=== PATIENT | male | born 1955 | race Caucasian/White ===

== ENCOUNTER 2024-10-23 12:15 | Day surgery (SDC) | payer MEDICARE, BC, SELFPAY ==
[2024-10-23] VITALS (13 sets, daily range): BP systolic 124–169; BP diastolic 63–87; PULSE 58–108; RESP 16–18; TEMP 36.3–36.9; O2SAT 89–100; BMI 25.8
--- NOTE | 2024-10-23 12:47 | CT_ITS ---
PROCEDURE: ABDOMEN/PELVIS W IV CONT ONLY 10/23/2024 REASON FOR EXAM: RLQ PAIN TECHNIQUE: ABDOMEN/PELVIS W IV CONT ONLY Coronal and Sagittal reconstruction series were provided. Intravenous contrast administered One or more dose reduction techniques were used (e.g., Automated exposure control, adjustment of the mA and/or kV according to patient size, use of iterative reconstruction technique. RADIATION DOSE SUMMARY: Dose reduction techniques performed COMPARISON: None FINDINGS: Lung bases are clear. Liver, spleen, adrenals, pancreas, kidneys are unremarkable. Simple cystic change of the bilateral kidneys. Aorta is nonaneurysmal. Severe diverticulosis centered at the sigmoid colon. No bowel obstruction. Blind-ending tubular structure seen in the right upper quadrant, unusual location for an appendix however this structure appears distended and dilated measuring up to 11 mm. No abscess. No appendicolith is seen. CT/Abdomen/Pelvis W IV Cont ONLY IMPRESSION: Possible CT evidence of acute uncomplicated appendicitis. Appendix abnormally located in the right upper quadrant. Clinical correlation is advised. Attempting to contact referring provider at the time of this dictation. Reading Location: [facility]
--- NOTE | 2024-10-23 12:50 | EX.ED.DYSGE1 ---
HPI History of Present Illness Chief Complaint: Abd Pain Narrative Narrative: 69-year-old male with PMH of HTN, HLD, DM2, colitis, GI bleed presents with right lower quadrant abdominal pain that started yesterday. He states he laid in bed all day yesterday and felt nauseated with decreased appetite. The area was tender to touch but with rolling over in bed. The pain is less severe today but still present. He is having normal urination. States his bowel movements have been smaller but formed without melena or hematochezia. He has a history of hernia repair as a child. He has never had a colonoscopy. [facility] Medical History (Updated 10/23/24 @ 15:38 by EDIN Roberts) Hyperlipidemia Diabetes HTN (hypertension) Home Medications ?Medication ?Instructions ?Recorded ?Last Taken ?Type diltiazem HCl 240 mg 240 mg PO DAILY 10/23/24 10/21/24 History capsule,extended release 24 hr (Cartia XT) glipizide 10 mg tablet, extended 10 mg PO DAILY 10/23/24 10/21/24 History release 24 hr insulin glargine 100 unit/mL (3 26 unit subcut QHS 10/23/24 10/21/24 History mL) subcutaneous pen (Lantus Solostar U-100 Insulin) lisinopril 40 mg tablet 40 mg PO DAILY 10/23/24 10/21/24 History rosuvastatin 10 mg tablet 10 mg PO QHS 10/23/24 10/21/24 History sertraline 50 mg tablet 50 mg PO DAILY 10/23/24 10/21/24 History Allergy/AdvReac Type Severity Reaction Status Date / Time No Known Allergies Allergy Verified 10/23/24 12:18 Social History (Updated 12/30/17 @ 11:48 by Mikey JESUS, PA) Smoking Status: Former smoker ROS ROS ED ROS Narrative Constitutional: Negative for fever, chills. CVS: Negative for chest pain. Respiratory: Negative for shortness of breath, cough. GI: Positive for abdominal pain. Negative for vomiting, melena, hematochezia. : Negative for dysuria, hematuria or frequency. EXAM Physical Exam Narrative Exam Narrative: CONST: Patient sitting in no acute distress. EYES: Normal inspection. NECK: Normal inspection. RESP: No respiratory distress, CTAB. CVS: Regular rate and rhythm, no murmur, no gallop. ABD: Soft with right upper and lower quadrant tenderness, no guarding or rebound, nondistended, no hepatosplenomegaly. Back: Normal inspection, no CVA tenderness. SKIN: Color normal, no rash, warm, dry, intact. EXTREMITIES: Normal appearance, no pedal edema. NEURO: Alert and answering questions appropriately. PSYCH: Normal affect. Const Vital Signs: 10/23/24 12:16 10/23/24 14:16 10/23/24 15:23 Temperature 97.9 F 98.5 F Temperature Source Oral Oral Pulse Rate 108 H 58 L 65 Respiratory Rate 16 18 18 Blood Pressure 158/84 H 143/75 H 138/77 H Blood Pressure Mean 108 97 97 Blood Pressure Source Monitor Blood Pressure Position Semi-Fowlers Blood Pressure Location Right Arm Pulse Ox 97 100 97 Oxygen Delivery Method Room Air Room Air Room Air MDM MDM MDM Narrative Medical decision making narrative: History gathered from: Patient and family Differential includes but not limited to appendicitis, kidney stone, diverticulitis Consults: General surgery, discussion with radiologist 69-year-old male has had 2 days of right sided abdominal pain. It is lessened in severity but is still present with decreased appetite and nausea. He appears well and nontoxic. He is tachycardic at 108 with otherwise normal vital signs. Abdomen is soft with RLQ tenderness without peritoneal signs. Labs show WBC of 12.3. Potassium is 5.4, BUN 36, creatinine 1.69. Last prior labs I have are from 2016 so I am not sure if this is a new JG or underlying chronic kidney disease. EKG is sinus rhythm without hyperkalemic changes and hyperkalemia was treated with IV fluids. Glucose is 166 with normal gap. The CT shows possible acute uncomplicated appendicitis. The radiologist Dr. Snow called and said the appendix is in the right upper quadrant but this does correlate with his clinical exam because he is tender in the right upper and lower quadrants. He was given IV Zosyn, morphine, Zofran and fluids. I consulted general surgeon Dr. Harris who will see the patient in the ED and will take him to the OR. Lab Data Attestation: I reviewed the patient's lab results. Labs: Laboratory Results - last 24 hr 10/23/24 13:14 WBC 12.3 H RBC 5.25 Hgb 14.2 Hct 42.9 MCV 81.7 MCH 27.0 MCHC 33.1 RDW Std Deviation 40.2 RDW Coeff of Jw 13.7 Plt Count 260 MPV 10.4 Immature Gran % (Auto) 0.400 Neut % (Auto) 79.2 H Lymph % (Auto) 11.7 L Harrison % (Auto) 6.7 Eos % (Auto) 1.5 Baso % (Auto) 0.5 Absolute Neuts (auto) 9.7 H Absolute Lymphs (auto) 1.43 Nucleated RBC % 0 Sodium 139 Potassium 5.4 H Chloride 107 Carbon Dioxide 19.2 L Anion Gap 14 BUN 36 H Creatinine 1.69 H Estim Creat Clear Calc 42.60 L Est GFR (MDRD) Non-Af 43 L BUN/Creatinine Ratio 21.5 H Glucose 166 H Calcium 9.8 Total Bilirubin 0.71 AST 18 ALT 13 Alkaline Phosphatase 71 Total Protein 7.4 Albumin 4.3 Globulin 3.1 Albumin/Globulin Ratio 1.4 Urine Color Yellow Urine Clarity Clear Urine pH 5.0 Ur Specific [place] 1.020 Urine Protein 30 H Urine Glucose (UA) Normal Urine Ketones 5 H Urine Occult Blood 10 H Urine Nitrite Negative Urine Bilirubin Negative Urine Urobilinogen Normal Ur Leukocyte Esterase Negative Urine RBC 0 SEEN Urine WBC 0 SEEN Ur Squamous Epith Cells 0 SEEN Urine Bacteria 0 SEEN Urine Mucus 0 SEEN Radiography Diagnostic Testing: Clinical Impression(s) from Imaging Studies Abdomen/Pelvis CT 10/23/24 12:47 IMPRESSION: Possible CT evidence of acute uncomplicated appendicitis. Appendix abnormally located in the right upper quadrant. Clinical correlation is advised. Attempting to contact referring provider at the time of this dictation. Reading Location: [facility] EKG Initial EKG: Attestation: I personally reviewed and interpreted this EKG as follows: Interpretation: Sinus Rhythm and No Acute Injury Pattern Comments: Normal sinus rhythm at 65 bpm Left axis deviation No hyperkalemic changes No STEMI Discharge Plan Triage Chief Complaint: Abd Pain ED Midlevel Provider: Britt Foley ED Provider: Genaro Ritter Dx/Rx/DC Orders Clinical Impression: Acute appendicitis, Creatinine elevation, Acute hyperkalemia Primary Care Provider: Chema Shelley
[2024-10-23] MEDS: 0.9% Normal Saline (1000mL) 1,000 ML 999 ML IV ×2 (13:11→15:21)
[2024-10-23 13:21] LABS: Mucous, Urine 0 SEEN /hpf (<or=2+); Red Blood Cells-Urine 0 SEEN /hpf (0-5); Squamous Epithelial Cells - UA 0 SEEN /hpf (0-5)
[2024-10-23 13:23] LABS: Color, Urine Yellow (Yellow); Glucose, Dipstick Normal (Normal); Hematocrit 42.9 % (40-54); Hemoglobin 14.2 g/dL (13.0-16.5); Immature Granulocytes Count 0.050 X10^3/uL (0.0-0.0); Ketone-Dipstick 5 mg/dl (Negative); Leukocyte Esterase-Dipstick Negative /ul (Negative); Mean Corp Hgb Conc 33.1 g/dL (32-36); Mean Corpuscular Volume 81.7 fL (80-94); Mean Platelet Vol. 10.4 fl (6.2-12.0); NRBC Flagged by Analyzer 0 % (0-5); Nitrite-Dipstick Negative (Negative); Occult Blood-Urine 10 /ul (Negative); Platelet Count 260 K/mm3 (150-450); Protein-Dipstick 30 mg/dl (Negative); RBC Distribution Width CV 13.7 % (11.6-14.6); RBC Distribution Width SD 40.2 fl (35.1-43.9); Red Blood Count 5.25 M/mm3 (4.6-6.2); Specific Gravity, Urine 1.020 (1.002-1.030); Urine Bilirubin Dipstick Negative (Negative); White Blood Count 12.3 K/mm3 (4.4-11.0)
--- OUTSIDE RECORDS SUMMARY | 2024-10-23 13:23 | XMS RPT_ITS | CCD ---
Author Organization [facility] Care Team Providers Care Signaling Project Engineer Name Role Phone Krysten MURILLO, Chema Ashford Primary Care Provider Jack Mirta ashford Unavailable Chema Bashir MD Primary Care Provider [phone] Mejia SUAREZ.CAROL, Jemima M Unavailable CHEMA BASHIR Referring Unavailable KRYSTEN, CHEMA Ashford Primary Care Unavailable CHEMA BASHIR Attending Unavailable KRYSTEN, CHEMA Ashford Primary Care Unavailable KRYSTEN, CHEMA Ashford Attending Unavailable KRYSTEN, CHEMA Ashford Primary Care Unavailable KRYSTEN, CHEMA Ashford Attending Unavailable KRYSTEN, CHEMA Ashford Primary Care Unavailable CHEMA BASHIR Referring Unavailable KRYSTEN, CHEMA Ashford Primary Care Unavailable KRYSTEN, CHEMA Ashford Attending Unavailable KRYSTEN, CHEMA Ashford Primary Care Unavailable Allergies Allergy Classification Reported Allergen(s) Allergy Type Date of Onset Reaction(s) Facility (20 sources) Cephalexin; Translations: [CEPHALEXIN] Drug Allergy 05-30-2016 Other: See Comments [facility] Medications Current Medications Medication Drug Class(es) Dates Sig (Normalized) Sig (Original) Blood-Glucose Meter (FREESTYLE LITE METER) monitoring kit (20 sources) Start: 01-10-2019 Blood-Glucose Meter (FREESTYLE LITE METER) monitoring kit Indications: Type 2 diabetes mellitus without complication, without long-term current use of insulin (HCC) Use to check blood sugars twice daily 1 Each 01/10/2019 Active Start: 01-10-2019 Blood-Glucose Meter (FREESTYLE LITE METER) monitoring kit Indications: Type 2 diabetes mellitus without complication, without long-term current use of insulin (HCC) Use to check blood sugars twice daily 1 Each 0 01/10/2019 Active Comment on above: Use to check blood s ugars twice daily 24 hr dilTIAZem hydrochloride 240 mg extended release oral capsule (8 sources) Calcium Channel Annette Start: take 1 capsule by mouth once daily dilTIAZem CD (CARDIZEM CD) 240 mg 24 hr capsule Indications: Essential hypertension Take 1 capsule by mouth once daily. 90 capsule 3 11/20/2023 Active Start: 08-26-2023 End: 11-20-2023 take 1 capsule by mouth once daily dilTIAZem CD (CARDIZEM CD) 180 mg 24 hr capsule Indications: Essential hypertension Take 1 capsule by mouth once daily. 30 capsule 3 08/26/2023 11/20/2023 Discontinued (Dosage adjustment) glipiZIDE er 10 mg 24 hr extended release oral tablet (20 sources) Sulfonylurea Start: 10-14-2022 End: 08-26-2023 take 1 tablet by mouth once daily glipiZIDE (GLUCOTROL XL) 10mg 24 hr tablet Indications: Type 2 diabetes mellitus with stage 3a chronic kidney disease, without long-term current use of insulin (HCC) Take 1 tablet by mouth once daily. 90 tablet 3 08/26/2023 Active Start: 07-23-2021 End: 10-01-2021 take 1 tablet by mouth once daily glipiZIDE (GLUCOTROL XL) 10mg 24 hr tablet Indications: Type 2 diabetes mellitus without complication, without long-term current use of insulin (HCC) Take 1 tablet by mouth once daily. 90 tablet 3 10/01/2021 Active Start: 04-23-2021 take 1 tablet by sree th once daily glipiZIDE (GLUCOTROL XL) 10mg 24 hr tablet Indications: Type 2 diabetes mellitus without complication, without long-term current use of insulin (HCC) Take 1 tablet by mouth once daily. 90 tablet 0 04/23/2021 Active Comment on above: Take 1 tablet by sree th once daily. 3 ml insulin glargine 100 unt/ml pen injector (20 sources) Insulin Analog Start: 11-20-2023 End: 05-26-2024 insulin glargine (LANTUS SOLOSTAR U-100 INSULIN) 100 unit/mL (3 mL) Indications: Type 2 diabetes mellitus with stage 3a chronic kidney disease, without long-term current use of insulin (HCC) 26 units subq at bedtime 5 Each 5 05/26/2024 Active Start: 03-05-2023 End: 11-20-2023 insulin glargine (LANTUS COCO OSTAR U-100 INSULIN) 100 unit/mL (3 mL) 26 units subq at bedtime 5 Each 5 03/05/2023 11/20/2023 Discontinued Start: 10-02-2022 End: 03-05-2023 insulin glargine (LANTUS COCO OSTAR U-100 INSULIN) 100 unit/mL (3 mL) 22 units subq at bedtime 5 Each 5 10/02/2022 03/05/2023 Discontinued Start: 01-10-2022 End: 10-02-2022 insulin glargine (LANTUS COCO OSTAR U-100 INSULIN) 100 unit/mL (3 mL) 22 units subq at bedtime 5 Each 5 10/02/2022 Active Start: 07-23-2021 insulin glargi ne (LANTUS SOLOSTAR U-100 INSULIN) 100 unit/mL (3 mL) 19 units subq at bedtime 5 Pen 5 07/23/2021 Active Start: 01-28-2021 insulin glargi ne (LANTUS SOLOSTAR U-100 INSULIN) 100 unit/mL (3 mL) 15 units subq at bedtime 5 Pen 5 01/28/2021 Active Comment on above: 15 units subq at bed time 19 units subq at bed time 22 units subq at bed time 26 units subq at bed time phenylephrine hydrochloride 25 mg/ml ophthalmic solution (1 source) alpha-1 Adrenergic Agonist Start: 3 End: 3 PHENYLephrine 2.5 % 1 Drop (AK-DILATE, MOHINDER-SYNEPHRINE) proparacaine hydrochloride 5 mg/ml ophthalmic solution (1 source) Local Anesthetic Start: 3 End: 3 proparacaine 0.5 % 1 Drop (ALCAINE) sertraline 50 mg oral tablet (8 sources) Serotonin Reuptake Inhibitor Start: 5 take 1 tablet by mouth once daily sertraline (ZOLOFT) 50 mg tablet Indications: Adjustment disorder with mixed anxiety and depressed mood Take 1 tablet by mouth once daily. 90 tablet 1 04/14/2024 Active Start: 11-20-2023 End: 04-14-2024 take 1 tablet by mouth once daily sertraline (ZOLOFT) 25 mg tablet Indications: Adjustment disorder with mixed anxiety and depressed mood Take 1 tablet by mouth once daily. 90 tablet 3 12/21/2023 04/14/2024 Discontinued (Dosage adjustment) tropicamide 10 mg/ml ophthalmic solution (1 source) Anticholinergic Start: 04-14-2022 End: 04-15-2022 tropicamide 1 % 1 Drop (MYDRIACYL) Completed/Discontinued Medications Medication Drug Class(es) Dates Sig (Normalized) Sig (Original) amLODIPine 10 mg oral tablet (12 sources) Dihydropyridine Calcium Channel Annette Start: 10-14-2022 End: 08-26-2023 take 1 tablet by mouth once daily amLODIPine (NORVASC) 10 mg tablet Indications: Essential hypertension Take 1 tablet by mouth once daily. 90 tablet 3 04/25/2023 08/26/2023 Discontinued (Changing Therapy/Dosage Form) Start: 05-12-2022 take 1 tablet by sree th once daily amLODIPine (NORVASC) 5 mg tablet Indications: Essential hypertension Take 1 tablet by mouth once daily. 90 tablet 1 05/12/2022 Active Start: 04-17-2022 take 1 tablet by sree th once daily amLODIPine (NORVASC) 2.5 mg tablet Indications: Essential hypertension Take 1 tablet by mouth once daily. 30 tablet 5 04/17/2022 Active Comment on above: Take 1 tablet by sree th once daily. empagliflozin 10 mg oral tablet (2 sources) Sodium-Glucose Cotransporter 2 Inhibitor Start: 024 End: take 1 tablet by mouth once daily at breakfast empagliflozin (JARDIANCE) 10 mg tablet Indications: Type 2 diabetes mellitus with stage 3a chronic kidney disease, without long-term current use of insulin ([facility]) Take 1 tablet by mouth daily with breakfast. 30 tablet 1 05/25/2023 08/26/2023 Discontinued (Patient chooses alternative therapy) Comment on above: Take 1 tablet by sree th daily with breakfast. lisinopril 40 mg oral tablet (20 sources) Angiotensin Converting Enzyme Inhibitor Start: 023 End: 025 take 1 tablet by mouth once daily lisinopril (ZESTRIL) 40 mg tablet Indications: Essential hypertension Take 1 tablet by mouth once daily. 90 tablet 1 04/14/2024 10/13/2024 Discontinued Start: 01-07-2022 take 1 tablet by sree th once daily lisinopril (ZESTRIL, PRINIVIL) 40 mg tablet Indications: Essential hypertension Take 1 tablet by mouth once daily. 90 tablet 1 01/07/2022 Active Start: 07-23-2021 End: 01-07-2022 take 1 tablet by mouth once daily lisinopril (ZESTRIL, PRINIVIL) 20 mg tablet Indications: Essential hypertension Take 1 tablet by mouth once daily. 90 tablet 3 07/23/2021 01/07/2022 Discontinued Start: 08-15-2020 take 1 tablet by sree th once daily lisinopril (ZESTRIL, PRINIVIL) 10 mg tablet Indications: Essential hypertension Take 1 tablet by mouth once daily. 90 tablet 3 08/15/2020 Active Comment on above: Take 1 tablet by sree th once daily. rosuvastatin calcium 10 mg oral tablet (20 sources) HMG-CoA Reductase Inhibitor Start: End: take 1 tablet by mouth once daily at bedtime rosuvastatin (CRESTOR) 10 mg tablet Indications: Hyperlipidemia, unspecified hyperlipidemia type Take 1 tablet by mouth daily at bedtime. 90 tablet 3 08/26/2023 10/13/2024 Discontinued Start: 07-23-2021 End: 10-01-2021 take 1 tablet by mouth once daily at bedtime rosuvastatin (CRESTOR) 10 mg tablet Take 1 tablet by mouth daily at bedtime. 90 tablet 3 10/01/2021 Active Start: 04-23-2021 take 1 tablet by sree th once daily at bedtime rosuvastatin (CRESTOR) 10 mg tablet Indications: Other hyperlipidemia Take 1 tablet by mouth daily at bedtime. 90 tablet 0 04/23/2021 Active Comment on above: Take 1 tablet by sree th daily at bedtime. Problems Active Problems Problem Classification Problem Date Documented Date Episodic/Chronic Adjustment disorders (10 sources) Adjustment disorder with mixed anxiety and depressed mood; Translations: [Adjustment disorder with mixed anxiety and depressed mood] Onset: 11-20-2023 11-20-2023 Chronic Blindness and vision defects (2 sources) Bilateral regular astigmatism; Translations: [Regular astigmatism, bilateral] Episodic Cataract (1 source) Bilateral senile combined form cataracts of eyes; Translations: [Combined forms of age-related cataract, bilateral] Chronic Chronic kidney disease (20 sources) Chronic kidney disease stage 3; Translations: [CKD (chronic kidney disease) stage 3, GFR 30-59 ml/min] Onset: 01-07-2019 04-11-2019 Chronic Diabetes mellitus with complications (20 sources) Type 2 diabetes mellitus; Translations: [Type 2 diabetes mellitus with diabetic chronic kidney disease] Onset: 07-30-2007 08-13-2020 Chronic Diabetes mellitus without complication (2 sources) Type 2 diabetes mellitus without complication; Translations: [Type 2 diabetes mellitus without complications] Chronic Diabetes mellitus without complication (1 source) Diabetes mellitus without complication; Translations: [Type 2 diabetes mellitus with stage 3a chronic kidney disease, without long-term current use of insulin (HCC)] Onset: 08-13-2020 Disorders of lipid metabolism (20 sources) Hyperlipidemia; Translations: [Hyperlipidemia, unspecified] Onset: 07-31-2007 02-02-2017 Chronic Essential hypertension (20 sources) Essential hypertension; Translations: [Essential (primary) hypertension] Onset: 07-31-2007 02-02-2017 Chronic Hyperplasia of prostate (20 sources) Benign prostatic hyperplasia; Translations: [Benign prostatic hyperplasia with lower urinary tract symptoms] Onset: 10-16-2015 10-16-2015 Chronic Immunizations and screening for infectious disease (6 sources) Patient encounter status; Translations: [Encounter for immunization] Episodic Other eye disorders (1 source) Peripheral corneal degeneration, bilateral; Translations: [Peripheral degenerations of cornea] Episodic Other lower respiratory disease (1 source) Viral respiratory infection; Translations: [Other specified respiratory disorders] 05-20-2023 Episodic Other screening for suspected conditions (not mental disorders or infectious disease) (1 source) Encounter for screening for malignant neoplasm of prostate; Translations: [Screening for prostate cancer] Onset: 05-25-2024 Episodic Past or Other Problems Problem Classification Problem Date Documented Date Episodic/Chronic Calculus of urinary tract (7 sources) Kidney stone; Translations: [Calculus of kidney] Onset: 09-14-2007 Resolved: 01-31-2010 01-31-2010 Episodic Other nutritional; endocrine; and metabolic disorders (7 sources) Obesity; Translations: [Obesity, unspecified] Onset: 07-31-2007 Resolved: 02-02-2017 02-02-2017 Chronic Regional enteritis and ulcerative colitis (7 sources) Colitis; Translations: [Left sided colitis without complications] Onset: 10-16-2015 Resolved: 02-02-2017 02-02-2017 Chronic Residual codes; unclassified (7 sources) Patient noncompliance - general; Translations: [Medically noncompliant] Onset: 10-15-2010 Resolved: 02-02-2017 02-02-2017 Episodic Substance-related disorders (20 sources) Tobacco user; Translations: [Nicotine dependence, unspecified, uncomplicated] Onset: 04-07-2008 Resolved: 05-26-2024 01-31-2010 Chronic Results Test Name Value Interpretation Reference Range Facility CNOV 05-26-2024 CNOV Office Visit (INTMWS ) ESTELA PALUMBO ([id number]) 1955 M Date Time Provider Department 05/26/24 1:00 PM CHEMA BASHIR INTMWS During your visit today, we recorded the following information about you: Temperature Pulse Respiration Blood pressure 98.6 degrees 72/minute 16/minute 130/72 Weight Height 83.7 kg 1.793 m Chema Bashir MD 05/26/2024 1:52 PM Signed Estela Palumbo is a 68 year old male here for a Medicare wellness visit. Medicare Health Risk Assessment General Health Good Exercise: Minutes/Day 30 min Exercise: Days/Week 3 days Alcohol: Daily Use Never Alcohol: Drinks/Day Patient does not drink Alcohol: 6 or more drinks Never Feel off balance No Concerns: Teeth/Dentures No Concerns: Sexual function No Troubled by feelings Anxious Frequency: Eating healthy diet Nearly every day ADLs requiring help None of the above Safety precautions in home/vehicle Yes Smoke, vape, chews tobacco No Difficulty hearing No Difficulty seeing No Current Providers Specialists: I have reviewed specialist-related care of the patient in the medical record. Current care team: Patient Care Team: Chema Bashir MD as PCP - General (Internal Medicine) Jemima Ba APRN.MEMBER OF THE [employer]GISLAT[employer] as Loss Prevention Lead (Internal Medicine) Shannon Beebe OD Optometry. Outside specialists seen: none. Medical/Family history review Reviewed and updated problem list, medical/surgical/family/soci al history, medications, and allergies. Opioid use review Opioid Medications (last 90 days) No data to display Anxiety/Depression screening Recommendation: continuing current treatment plan Cognitive screening Mini Cog Score: 4 Cognitive screening reviewed and No further action needed (score 3-5). Functional Observation Was the patient's Timed Up AND Go test unsteady or >= 12 seconds? No Advance Care Planning Patient did not wish or was not able to name a surrogate decision maker or provide an advance care plan Measurements BP 130/72 (BP Site: Left Arm, BP Position: Sitting, BP Cuff Size: Large Adult) Pulse 72 Temp 37 ?C (98.6 ?F) (Temporal) Resp 16 Ht 179.3 cm (5' 10.6) Wt 83.7 kg (184 lb 8.4 oz) BMI 26.03 kg/m? Vision Screening: Follows with optometry/ophthalmology Right: 20/20 Left: 20/ 20 Both: 20/20 Assessment/Plan Medicare annual wellness visit, subsequent (Z00.00) - Counseled on healthy diet and regular exercise - Fall avoidance information provided - Personalized prevention plan provided - Discussed need for and benefit of weight loss. BMI 26.03 kg/(m2) - Vaccines reviewed. - AAA screening not done. Schedule. Chmea Bashir MD 05/26/2024 1:32 PM Signed Advance Directive Forms Advanced Directives Forms (Gibraltarian) FORMS: [email or web address] [email or web address]-djedv-ak-business [email or web address].p- df INFORMATIONAL BROCHURE: [email or web address] /-/[email or web address]/files/[email or web address]/nicko ents-visitors/informati- on/advance-[email or web address]?l a=en Advance Directives (non-Gibraltarian) FORMS: [email or web address] rg/[email or web address]/information/medi gpe-nmakdulab-qzryv/adv- ance-directives#forms-tab Please bring completed forms to your next appointment or email them to . Patient Resources How to Get Started Talking with Loved Ones about your Wishes at the End of Life [email or web address]/wp-content/uploads/[email or web address]/[email or web address]- sm-[email or web address]-Rcfbaxl.p df How to Navigate Conversations with your Care Team around your Preferences [email or web address] MD 05/26/2024 1:52 PM Signed This note was created using [email or web address]. Subjective Estela Palumbo is a 68 year old male. He was doing well. Blood pressure is better back on lisinopril. Review of Systems Constitutional: Negative for fatigue. Respiratory: Negative for shortness of breath. Cardiovascular: Negative for chest pain. Neurological: Negative for dizziness. ACTIVE PROBLEM LIST Type 2 Diabetes Mellitus With Stage 3 Chronic Kidney Disease, Without Long-Term Current Use of Insulin ([facility]) Essential Hypertension Hyperlipidemia Tobacco Use Disorder Benign Prostatic Hyperplasia With Lower Urinary Tract Symptoms Ckd (Chronic Kidney Disease) Stage 3, Gfr 30-59 Ml/Min ([facility]) Adjustment Disorder With Mixed Anxiety and Depressed Mood Social History Tobacco Use Smoking status: Former Current packs/day: 0.00 Types: Cigars, Cigarettes Quit date: 06/22/1995 Years since quittin.9 Smokeless tobacco: Former Types: Snuff Quit date: 08/15/2020 Tobacco comments: quit cigars, occasional snuff Vaping Use Vaping status: Never Used Substance Use Topics Alcohol use: No Drug use: No Objective BP 130/72 (BP Site: Left Arm, BP Position: Sitting, BP Cuff Size: Large Adult) Pulse 72 Temp 37 ?C (98.6 ?F) (Temporal) Resp (more content not included)... Normal [facility] ALBUMIN/CREATININE RATIO, UR INEon 05-25-2024 Albumin Unsp time DL <= 20 mg/L (U) [Mass/Time] <12.0 Normal [facility] Comment on above: Order Comment: Speci men Type: BLOOD SPECIMEN Ordering Facility: [facility] Address: [address] [place] [address] Performed By: #### 2 4331-1 #### [facility] CLIA [id number] [address] STATES OF [facility] CLIA [id number] [address] [place] [address] [place] #### 37847-6 #### [facility] CLIA [id number] [address] Albumin/Creatinine (U) [Mass ratio] <29 Normal <30 [facility] Comment on above: Order Comment: Speci men Type: BLOOD SPECIMEN Ordering Facility: [facility] Address: [address] [place] [address] Result Comment: Adul t Male and Female Nephrotic Criteria: <30 mg/g is considered normal to mildly increased 30-300 mg/g is considered moderately increased >300 mg/g is considered severely increased KDIGO. (2013). KDIGO 2012 Clinical Practice Guideline for the Evaluation and Management of Chronic Kidney Disease. Official Journal of the International Society of Nephrology, 3(1), 1-150. Performed By: #### 2 4331-1 #### [facility] CLIA [id number] [address] STATES OF [facility] CLIA [id number] [address] [place] [address] [place] #### 27360-2 #### [facility] CLIA [id number] [address] [place] Creatinine (U) [Mass/Vol] 40.7 mg/dL Low 46.8-314.5 [facility] Comment on above: Order Comment: Speci men Type: BLOOD SPECIMEN Ordering Facility: [facility] Address: [address] [place] [address] Performed By: #### 2 4331-1 #### [facility] CLIA [id number] [address] STATES OF [facility] CLIA [id number] [address] [place] [address] [place] #### 39668-6 #### [facility] CLIA [id number] [address] CBC panel Auto (Bld)on 05-25 Erythrocyte distribution width (RBC) [Ratio] 13.3 % Normal 11.5-15.0 [facility] Comment on above: Order Comment: Speci men Type: BLOOD SPECIMEN Ordering Facility: [facility] Address: [address] [place] [address] Performed By: #### 2 4331-1 #### [facility] CLIA [id number] [address] [facility] [id number] [address] [place] [address] [place] #### 81078-3 #### [facility] CLIA [id number] [address] [place] Hematocrit (Bld) [Volume fraction] 46.4 % Normal 39.0-51.0 [facility] Comment on above: Order Comment: Speci men Type: BLOOD SPECIMEN Ordering Facility: [facility] Address: [address] [place] [address] Performed By: #### 2 4331-1 #### [facility] CLIA [id number] [address] STATES OF [facility] CLIA [id number] [address] [place] [address] [place] #### 38234-8 #### [facility] CLIA [id number] [address] [place] Hemoglobin (Bld) [Mass/Vol] 15.1 g/dL Normal 13.0-17.0 [facility] Comment on above: Order Comment: Speci men Type: BLOOD SPECIMEN Ordering Facility: [facility] Address: [address] [place] [address] Performed By: #### 2 4331-1 #### [facility] CLIA [id number] [address] CLIA [id number] [address] [place] [address] #### 95491-4 #### [facility] CLIA [id number] [address] MCH (RBC) [Entitic mass] 26.7 pg Normal 26.0-34.0 [facility] Comment on above: Order Comment: Speci men Type: BLOOD SPECIMEN Ordering Facility: [facility] Address: [address] [place] [address] Performed By: #### 2 4331-1 #### [facility] CLIA [id number] [address] CLIA [id number] [address] [place] [address] #### 18033-2 #### [facility] CLIA [id number] [address] MCHC (RBC) [Mass/Vol] 32.5 g/dL Normal 30.5-36.0 [facility] Comment on above: Order Comment: Speci men Type: BLOOD SPECIMEN Ordering Facility: [facility] Address: [address] [place] [address] Performed By: #### 2 4331-1 #### [facility] CLIA [id number] [address] OF [facility] CLIA [id number] [address] [place] [address] #### 43065-4 #### [facility] CLIA [id number] [address] [place] MCV (RBC) [Entitic vol] 82.1 fL Normal 80.0-100.0 [facility] Comment on above: Order Comment: Speci men Type: BLOOD SPECIMEN Ordering Facility: [facility] Address: [address] [place] [address] Performed By: #### 2 4331-1 #### [facility] CLIA [id number] [address] [place] [address] [place] [facility] CLIA [id number] [address] [place] [address] [place] #### 70716-4 #### [facility] CLIA [id number] [address] [place] [address] [place] Nucleated RBC (Bld) [#/Vol] 10*3/uL Normal <0.01 [facility] Comment on above: Order Comment: Speci men Type: BLOOD SPECIMEN Ordering Facility: [facility] Address: [address] [place] [address] Performed By: #### 2 4331-1 #### [facility] CLIA [id number] [address] [place] [address] [place] [facility] CLIA [id number] [address] [place] [address] [place] #### 84658-4 #### [facility] CLIA [id number] [address] [place] Platelet mean volume (Bld) [Entitic vol] 10.6 fL Normal 9.0-12.7 [facility] Comment on above: Order Comment: Speci men Type: BLOOD SPECIMEN Ordering Facility: [facility] Address: [address] [place] [address] Performed By: #### 2 4331-1 #### [facility] CLIA [id number] [address] [place] [address] [place] [facility] CLIA [id number] [address] [place] [address] [place] #### 12255-5 #### [facility] CLIA [id number] [address] [place] [address] [place] Platelets (Bld) [#/Vol] 296 10*3/uL Normal 150-400 [facility] Comment on above: Order Comment: Speci men Type: BLOOD SPECIMEN Ordering Facility: [facility] Address: [address] [place] [address] Performed By: #### 2 4331-1 #### [facility] CLIA [id number] [address] [place] [address] [place] [facility] CLIA [id number] [address] [place] [address] [place] #### 95149-3 #### [facility] [facility] CLIA [id number] 1 [place] [address] [place] RBC (Bld) [#/Vol] 5.65 10*6/uL Normal 4.20-6.00 [facility] Comment on above: Order Comment: Speci men Type: BLOOD SPECIMEN Ordering Facility: [facility] Address: [address] [place] [address] Performed By: #### 2 4331-1 #### [facility] CLIA [id number] 1 [place] [address] [place] [facility] CLIA [id number] [address] [place] [address] [place] #### 30404-2 #### [facility] CLIA [id number] 1 [place] [address] [place] WBC (Bld) [#/Vol] 9.69 10*3/uL Normal 3.70-11.00 [facility] Comment on above: Order Comment: Speci men Type: BLOOD SPECIMEN Ordering Facility: [facility] Address: [facility] [place] [address] Performed By: #### 2 4331-1 #### [facility] CLIA [id number] 1 [place] [address] [place] [facility] CLIA [id number] [address] [place] [address] #### 20930-1 #### [facility] CLIA [id number] [address] Comprehensive metabolic 2000 panelon 05-25-2024 Albumin [Mass/Vol] 4.5 g/dL Normal 3.9-4.9 [facility] Comment on above: Order Comment: Speci men Type: BLOOD SPECIMEN Ordering Facility: [facility] Address: [address] [place] [address] Performed By: #### 2 4331-1 #### [facility] CLIA [id number] [address] OF [facility] CLIA [id number] [address] [place] [address] OF [facility] #### [id number] #### [facility] CLIA [id number] [address] ALP [Catalytic activity/Vol] 69 U/L Normal 38-113 [facility] Comment on above: Order Comment: Speci men Type: BLOOD SPECIMEN Ordering Facility: [facility] Address: [address] [place] [address] Performed By: #### 2 4331-1 #### [facility] CLIA [id number] [address] OF [facility] CLIA [id number] [address] [place] [address] OF [facility] #### 69070-5 #### [facility] CLIA [id number] [address] ALT With P-5'-P [Catalytic activity/Vol] 18 U/L Normal 10-54 [facility] Comment on above: Order Comment: Speci men Type: BLOOD SPECIMEN Ordering Facility: [facility] Address: [address] [place] [address] Performed By: #### 2 4331-1 #### [facility] CLIA [id number] [address] OF [place] [facility] CLIA [id number] [address] [place] [address] [place] #### 73729-3 #### [facility] CLIA [id number] [address] [place] Anion gap [Moles/Vol] 13 mmol/L Normal 8-15 [facility] Comment on above: Order Comment: Speci men Type: BLOOD SPECIMEN Ordering Facility: [facility] Address: [address] [place] [address] Performed By: #### 2 4331-1 #### [facility] CLIA [id number] [address] [place] [facility] CLIA [id number] [address] [place] [address] [place] #### 24590-9 #### [facility] CLIA [id number] [address] [place] AST With P-5'-P [Catalytic activity/Vol] 22 U/L Normal 14-40 [facility] Comment on above: Order Comment: Speci men Type: BLOOD SPECIMEN Ordering Facility: [facility] Address: [address] [place] [address] Performed By: #### 2 4331-1 #### [facility] CLIA [id number] [address] [place] [facility] CLIA [id number] [address] [place] [address] [place] #### 57877-8 #### [facility] CLIA [id number] [address] [place] Bilirubin [Mass/Vol] 0.4 mg/dL Normal 0.2-1.3 [facility] Comment on above: Order Comment: Speci men Type: BLOOD SPECIMEN Ordering Facility: [facility] Address: [address] [place] [address] Performed By: #### 2 4331-1 #### [facility] CLIA [id number] [address] [place] [facility] CLIA [id number] [address] [place] [address] [place] #### 35546-0 #### [facility] CLIA [id number] 1 [place] [address] [place] Calcium [Mass/Vol] 10.0 mg/dL Normal 8.5-10.2 [facility] Comment on above: Order Comment: Speci men Type: BLOOD SPECIMEN Ordering Facility: [facility] Address: [address] [place] [address] Performed By: #### 2 4331-1 #### [facility] CLIA [id number] 1 [place] [address] [place] [facility] CLIA [id number] [address] [place] [address] [place] #### 85478-0 #### [facility] CLIA [id number] 1 [place] [address] [place] Chloride [Moles/Vol] 100 mmol/L Normal 98-107 [facility] Comment on above: Order Comment: Speci men Type: BLOOD SPECIMEN Ordering Facility: [facility] Address: [address] [place] [address] Performed By: #### 2 4331-1 #### [facility] CLIA [id number] 1 [place] [address] [place] [facility] CLIA [id number] [address] [place] [address] [place] #### 45606-0 #### [facility] CLIA [id number] 1 [place] [address] [place] CO2 [Moles/Vol] 24 mmol/L Normal 22-30 [facility] Comment on above: Order Comment: Speci men Type: BLOOD SPECIMEN Ordering Facility: [facility] Address: [address] [place] [address] Performed By: #### 2 4331-1 #### [facility] CLIA [id number] [address] CLIA [id number] [address] [place] [address] #### 79084-9 #### [facility] CLIA [id number] [address] Creatinine [Mass/Vol] 1.18 mg/dL Normal 0.73-1.22 [facility] Comment on above: Order Comment: David men Type: BLOOD SPECIMEN Ordering Facility: [facility] Address: [address] [place] [address] Performed By: #### 2 4331-1 #### [facility] CLIA [id number] [address] CLIA [id number] [address] [place] [address] #### 42266-2 #### [facility] CLIA [id number] [address] Creatinine and Glomerular filtration rate.predicted panel (S/P/Bld) 67 mL/min/1.73m??? Normal >=60 [facility] Comment on above: Order Comment: David pulido Type: BLOOD SPECIMEN Ordering Facility: [facility] Address: [address] [place] [address] Result Comment: Ashanti mated Glomerular Filtration Rate (eGFR) is calculated using the 2020 CKD-EPI creatinine equation. This equation utilizes serum creatinine, sex, and age as parameters. The creatinine assay has traceable calibration to isotope dilution-mass spectrometry. Refer to KDIGO guidelines for clinical interpretation. In patients with unstable renal function, e.g. those with acute kidney injury, the eGFR may not accurately reflect actual GFR. Performed By: #### 2 4331-1 #### [facility] CLIA [id number] [id number] [address] [place] [address] [place] #### 18553-4 #### [facility] CLIA [id number] 1 [place] [address] [place] Glucose [Mass/Vol] 146 mg/dL High 74-99 [facility] Comment on above: Order Comment: Speci men Type: BLOOD SPECIMEN Ordering Facility: [facility] Address: [address] [place] [address] Result Comment: The [place] Diabetes Association (ADA) provides guidance for cutoff values for fasting glucose and random glucose. The ADA defines fasting as no caloric intake for at least 8 hours. Fasting plasma glucose results between 100 to 125 mg/dL indicate increased risk for diabetes (prediabetes). Fasting plasma glucose results greater than or equal to 126 mg/dL meet the criteria for diagnosis of diabetes. In the absence of unequivocal hyperglycemia, results should be confirmed by repeat testing. In a patient with classic symptoms of hyperglycemia or hyperglycemic crisis, random plasma glucose results greater than or equal to 200 mg/dL meet the criteria for diagnosis of diabetes. Reference: Standards of Medical Care in Diabetes 2016, [place] Diabetes Association. Diabetes Care. 2016.39(Suppl 1). Performed By: #### 2 4331-1 #### [facility] CLIA [id number] [address] OF [facility] [id number] [address] [place] [address] OF [place] #### 26835-9 #### [facility] CLIA [id number] [address] [place] Potassium [Moles/Vol] 4.6 mmol/L Normal 3.7-5.1 [facility] Comment on above: Order Comment: Speci men Type: BLOOD SPECIMEN Ordering Facility: [facility] Address: [address] [place] [address] Performed By: #### 2 4331-1 #### [facility] CLIA [id number] [address] [place] [facility] CLIA [id number] [address] [place] [address] [place] #### 77381-5 #### [facility] CLIA [id number] [address] [place] Protein [Mass/Vol] 7.5 g/dL Normal 6.3-8.0 [facility] Comment on above: Order Comment: Speci men Type: BLOOD SPECIMEN Ordering Facility: [facility] Address: [address] [place] [address] Performed By: #### 2 4331-1 #### [facility] CLIA [id number] 1 [place] [address] [place] [facility] CLIA [id number] [address] [place] [address] [place] #### 31205-0 #### [facility] CLIA [id number] 1 [place] [address] [place] Sodium [Moles/Vol] 137 mmol/L Normal 136-144 [facility] Comment on above: Order Comment: Speci men Type: BLOOD SPECIMEN Ordering Facility: [facility] Address: [address] [place] [address] Performed By: #### 2 4331-1 #### [facility] CLIA [id number] 1 [place] [address] [place] [facility] CLIA [id number] [address] [place] [address] [place] #### 39313-2 #### [facility] CLIA [id number] 1 [place] [address] [place] Urea nitrogen [Mass/Vol] 15 mg/dL Normal 9-24 [facility] Comment on above: Order Comment: Speci men Type: BLOOD SPECIMEN Ordering Facility: [facility] Address: [address] [place] [address] Performed By: #### 2 4331-1 #### [facility] CLIA [id number] [address] CLIA [id number] [address] [place] [address] #### 60886-9 #### [facility] CLIA [id number] [address] HbA1c (Bld)on 05-25-2024 Average glucose Estimated from glycated hemoglobin (Bld) [Mass/Vol] 174 mg/dL Normal [facility] Comment on above: Order Comment: Speci men Type: BLOOD SPECIMEN Ordering Facility: [facility] Address: [address] [place] [address] Result Comment: eAG: (Estimated average glucose) is a calculated value from HgbA1c and is customer sales representative of the average blood glucose level in the last 2-3 month period. Performed By: #### 2 4331-1 #### [facility] CLIA [id number] [address] STATES OF [facility] [id number] [address] [place] [address] [place] #### 56887-5 #### [facility] CLIA [id number] [address] STATES [facility] HbA1c (Bld) [Mass fraction] 7.7 % High 4.3-5.6 [facility] Comment on above: Order Comment: Edithi men Type: BLOOD SPECIMEN Ordering Facility: [facility] Address: [address] [place] [address] Result Comment: Amer [place] Diabetes Association guidelines indicate that patients with HgbA1c in the range 5.7-6.4% are at increased risk for development of diabetes, and intervention by lifestyle modification may be beneficial. HgbA1c greater or equal to 6.5% is considered diagnostic of diabetes. Performed By: #### 2 4331-1 #### [facility] CLIA [id number] [address] OF [facility] CLIA [id number] [address] [place] [address] [place] #### 66889-1 #### [facility] CLIA [id number] [address] [place] Lipid 1996 panelon 5 Cholesterol [Mass/Vol] 106 mg/dL Normal <200 [facility] Comment on above: Order Comment: Speci men Type: BLOOD SPECIMEN Ordering Facility: [facility] Address: [address] [place] [address] Result Comment: <200 mg/dL, Desirable 200-239 mg/dL, Borderline high >239 mg/dL, High Performed By: #### 2 4331-1 #### [facility] CLIA [id number] [address] STATES OF [facility] CLIA [id number] [address] [place] [address] [place] #### 18734-5 #### [facility] CLIA [id number] [address] STATES [facility] Cholesterol in HDL [Mass/Vol] 42 mg/dL Normal >39 [facility] Comment on above: Order Comment: Speci men Type: BLOOD SPECIMEN Ordering Facility: [facility] Address: [address] [place] [address] Result Comment: 40-5 9 mg/dL, Acceptable >59 mg/dL, High: Negative risk factor for coronary heart disease <40 mg/dL, Low: Positive risk factor for coronary heart disease Performed By: #### 2 4331-1 #### [facility] CLIA [id number] 1 [place] [address] [place] [facility] CLIA [id number] [address] [place] [address] [place] #### 72705-6 #### [facility] CLIA [id number] [address] Cholesterol in LDL [Mass/Vol] 53 mg/dL Normal <100 [facility] Comment on above: Order Comment: Edithi men Type: BLOOD SPECIMEN Ordering Facility: [facility] Address: [address] [place] [address] Result Comment: <100 mg/dL, Optimal 100-129 mg/dL, Near optimal/above optimal 130-159 mg/dL, Borderline high 160-189 mg/dL, High >189 mg/dL, Very high Secondary prevention optimal LDL Cholesterol levels are recommended to be < 70 mg/dL Performed By: #### 2 4331-1 #### [facility] CLIA [id number] [address] CLIA [id number] [address] [place] [address] #### 46554-6 #### [facility] CLIA [id number] [address] Cholesterol in LDL/Cholesterol in HDL [Mass ratio] 1.26 {ratio} Normal <2.54 [facility] Comment on above: Order Comment: Edithi men Type: BLOOD SPECIMEN Ordering Facility: [facility] Address: [address] [place] [address] Result Comment: Jeane connelly: 1. National Cholesterol Education Program ATP III Guideline At-A-Glance Quick Desk Reference: National Heart, Lung, and Blood Esmond. National Institutes of Health. 2001: NIH Publication No. 01-3305. 2. An International Atherosclerosis Society position paper: global recommendations for the management of dyslipidemia: executive summary, Atherosclerosis. 2014: 232(2):410-413. Performed By: #### 2 4331-1 #### [facility] CLIA [id number] [address] STATES [facility] CLIA [id number] [address] [place] [address] #### 03151-2 #### [facility] CLIA [id number] [address] Cholesterol in VLDL [Mass/Vol] 11 mg/dL Normal <30 [facility] Comment on above: Order Comment: Speci men Type: BLOOD SPECIMEN Ordering Facility: [facility] Address: [address] [place] [address] Performed By: #### 2 4331-1 #### [facility] CLIA [id number] [address] CLIA [id number] [address] #### 86146-6 #### [facility] CLIA [id number] [address] Cholesterol non HDL [Mass/Vol] 64 mg/dL Normal <130 [facility] Comment on above: Order Comment: Speci men Type: BLOOD SPECIMEN Ordering Facility: [facility] Address: [address] [place] [address] Result Comment: <130 mg/dL, Optimal 130-159 mg/dL, Near optimal/above optimal 160-189 mg/dL, Borderline high 190-219 mg/dL, High >219 mg/dL, Very high Secondary prevention optimal non HDL Cholesterol levels are recommended to be <100 mg/dL Performed By: #### 2 4331-1 #### [facility] CLIA [id number] [address] STATES OF [facility] CLIA [id number] [address] [place] [address] #### 10218-0 #### [facility] CLIA [id number] [address] Cholesterol.total/ Cholesterol in HDL [Mass ratio] 2.52 {ratio} Normal <5.10 [facility] Comment on above: Order Comment: Speci men Type: BLOOD SPECIMEN Ordering Facility: [facility] Address: [address] [place] [address] Performed By: #### 2 4331-1 #### [facility] CLIA [id number] [address] OF [facility] CLIA [id number] [address] [place] [address] [place] #### 08757-2 #### [facility] CLIA [id number] [address] STATES OF [place] FASTING TIME 12 hrs Normal [facility] Comment on above: Order Comment: Speci men Type: BLOOD SPECIMEN Ordering Facility: [facility] Address: [address] [place] [address] Performed By: #### 2 4331-1 #### [facility] CLIA [id number] [address] STATES OF [facility] [id number] [place] [address] [place] #### 25561-9 #### [facility] CLIA [id number] [address] [place] Triglyceride [Mass/Vol] 57 mg/dL Normal <150 [facility] Comment on above: Order Comment: Speci men Type: BLOOD SPECIMEN Ordering Facility: [facility] Address: [address] [place] [address] Result Comment: <150 mg/dL, Normal 150-199 mg/dL, Borderline high 200-499 mg/dL, High >499 mg/dL, Very high Performed By: #### 2 4331-1 #### [facility] CLIA [id number] [address] [place] [address] [place] [facility] CLIA [id number] [address] [place] [address] [place] #### 44643-2 #### [facility] CLIA [id number] [address] [place] PSA/PROSTATE SPECIFIC ANTIGE N SCREENINGon 05-25-2024 Prostate specific Ag [Mass/Vol] 1.12 ng/mL Normal <2.60 [facility] Comment on above: Order Comment: Speci men Type: BLOOD SPECIMEN Ordering Facility: [facility] Address: [address], [place] [address] Result Comment: Rajeev kraus PSA test methodology used is the Electrochemiluminescence Immunoassay by [employer]. Total PSA values by differing methodologies cannot be interchanged. Performed By: #### P SAS1 #### [facility] CLIA [id number] [address] CNOVon 04-14-2024 CNOV Office Visit (INTMWS ) ESTELA PALUMBO ([id number]) 1955 M Date Time Provider Department 04/14/24 3:40 PM CHEMA BASHIR INTMWS During your visit today, we recorded the following information about you: Pulse Blood pressure Weight 83/minute 152/80 84.9 kg Chema Bashir MD 04/14/2024 4:43 PM Signed This note was created using Stream Tags[employer]. Subjective Estela Palumbo is a 68 year old male. He was doing well. He declined endocrinology referral last labs. His hypertension was elevated. On medication reconciliation, he stopped lisinopril for unclear reasons. Sertraline was helping his mood, and he was interested in a higher dose. Review of Systems Constitutional: Negative for fatigue. Respiratory: Negative for shortness of breath. Cardiovascular: Negative for chest pain and palpitations. Neurological: Negative for dizziness and headaches. Psychiatric/Behavioral: Negative for dysphoric mood. The patient is not nervous/anxious. ACTIVE PROBLEM LIST Type 2 Diabetes Mellitus With Stage 3 Chronic Kidney Disease, Without Long-Term Current Use of Insulin ([facility]) Essential Hypertension Hyperlipidemia Tobacco Use Disorder Benign Prostatic Hyperplasia With Lower Urinary Tract Symptoms Ckd (Chronic Kidney Disease) Stage 3, Gfr 30-59 Ml/Min ([facility]) Adjustment Disorder With Mixed Anxiety and Depressed Mood Social History Tobacco Use Smoking status: Former Current packs/day: 0.00 Types: Cigars, Cigarettes Quit date: 06/22/1995 Years since quittin.8 Smokeless tobacco: Former Types: Snuff Quit date: 08/15/2020 Tobacco comments: quit cigars, occasional snuff Vaping Use Vaping status: Never Used Substance Use Topics Alcohol use: No Drug use: No Current Outpatient Medications Medication Sig sertraline (ZOLOFT) 25 mg tablet Take 1 tablet by mouth once daily. insulin glargine (LANTUS SOLOSTAR U-100 INSULIN) 100 unit/mL (3 mL) 26 units subq at bedtime dilTIAZem CD (CARDIZEM CD) 240 mg 24 hr capsule Take 1 capsule by mouth once daily. glipiZIDE (GLUCOTROL XL) 10mg 24 hr tablet Take 1 tablet by mouth once daily. rosuvastatin (CRESTOR) 10 mg tablet Take 1 tablet by mouth daily at bedtime. blood sugar diagnostic (BLOOD GLUCOSE TEST) test strip Test 2 times daily, Insulin Dep? Yes E11.9 DM 2 insulin needles, DISPOSABLE, (PEN NEEDLE) 31 gauge x 5/16 Use one needle per dose. 1 per day. Blood-Glucose Meter (FREESTYLE LITE METER) monitoring kit Use to check blood sugars twice daily lisinopril (ZESTRIL) 40 mg tablet Take 1 tablet by mouth once daily. No current facility-administered medications for this visit. Objective BP 152/80 (BP Site: Left Arm, BP Position: Sitting, BP Cuff Size: Large Adult) Pulse 83 Wt 84.9 kg (187 lb 2.7 oz) BMI 26.86 kg/m? Physical Exam Constitutional: Appearance: Normal appearance. Cardiovascular: Rate and Rhythm: Normal rate and regular rhythm. Heart sounds: No murmur heard. No gallop. Pulmonary: Breath sounds: Normal breath sounds. Musculoskeletal: Right lower leg: No edema. Left lower leg: No edema. Neurological: Mental Status: He is alert. Psychiatric: Mood and Affect: Mood normal. Assessment and Plan 1. Essential hypertension - ICD9: 401.9, ICD10: I10 (primary diagnosis) - Worsening control - Continue current medications - Encouraged sodium restriction, DASH or Mediterranean diet - Restart LISINOPRIL. - LISINOPRIL 40 MG TABLET - COMPLETE BLOOD COUNT 2. Adjustment disorder with mixed anxiety and depressed mood - ICD9: 309.28, ICD10: F43.23 Improved. Dose increased. - SERTRALINE 50 MG TABLET 3. Type 2 diabetes mellitus with stage 3a chronic kidney disease, without long-term current use of insulin (HCC) - ICD9: 250.40, 585.3, ICD10: E11.22, N18.31 - Control undetermined, due for labs - Continue current medications - eGFR: 71 Due for labs - HEMOGLOBIN A1C - ALBUMIN/CREATININE RATIO, URINE 4. Hyperlipidemia, unspecified hyperlipidemia type - ICD9: 272.4, ICD10: E78.5 - Control undetermined, due for labs - Continue current medications - COMPREHENSIVE METABOLIC PANEL - LIPID PANEL BASIC 5. Screening for prostate cancer - ICD9: V76.44, ICD10: Z12.5 - Risks/benefits of prostate cancer screening discussed. screening PSA ordered - PSA/PROSTATE SPECIFIC ANTIGEN SCREENING Chema Bashir MD Allergies As of Date: 04/14/2024 Noted Allergy Reaction KEFLEX (CEPHALEXIN) 05/30/2016 14 - Other: See Comments Comments: Skin tender and hot feeling all over Date Reviewed: 04/14/2024 Reviewed by: Aislinn Chung LPN - Fully Assessed Reason for Visit: F/U 3 Month [443] Primary Visit Diagnosis:Essential hypertension [I10] Other Visit Diagnoses:Adjustment disorder with mixed anxiety and depressed mood [F43.23] Type 2 diabetes mellitus with stage 3a chronic kidney disease, without long-term current use (more content not included)... Normal [facility] Basic metabolic 2000 panelon 11-20-2023 Anion gap [Moles/Vol] 13 mmol/L Normal 8-15 [facility] Comment on above: Order Comment: Speci men Type: BLOOD SPECIMEN Ordering Facility: [facility] Address: [address] [place] [address] Performed By: #### 2 4331-1 #### [facility] CLIA [id number] [address] [place] [address] [place] [facility] CLIA [id number] [address] [place] [address] [place] #### 40355-5 #### [facility] CLIA [id number] 1 [place] [address] [place] Calcium [Mass/Vol] 9.8 mg/dL Normal 8.5-10.2 [facility] Comment on above: Order Comment: Speci men Type: BLOOD SPECIMEN Ordering Facility: [facility] Address: [address] [place] [address] Performed By: #### 2 4331-1 #### [facility] CLIA [id number] 1 [place] [address] [place] [facility] CLIA [id number] [place] [address] [place] #### 61753-7 #### [facility] CLIA [id number] 1 [place] [address] [place] Chloride [Moles/Vol] 102 mmol/L Normal 98-107 [facility] Comment on above: Order Comment: Speci men Type: BLOOD SPECIMEN Ordering Facility: [facility] Address: [address] [place] [address] Performed By: #### 2 4331-1 #### [facility] CLIA [id number] 1 [place] [address] [place] [facility] CLIA [id number] [place] [address] [place] #### 75920-3 #### [facility] CLIA [id number] 1 [place] [address] [place] CO2 [Moles/Vol] 25 mmol/L Normal 22-30 [facility] Comment on above: Order Comment: Speci men Type: BLOOD SPECIMEN Ordering Facility: [facility] Address: [address] [place] [address] Performed By: #### 2 4331-1 #### [facility] CLIA [id number] 1 [place] [address] [place] [facility] CLIA [id number] [address] [place] [address] [place] #### 82806-2 #### [facility] CLIA [id number] [address] STATES [facility] Creatinine [Mass/Vol] 1.13 mg/dL Normal 0.73-1.22 [facility] Comment on above: Order Comment: Speci men Type: BLOOD SPECIMEN Ordering Facility: [facility] Address: [address] [place] [address] Performed By: #### 2 4331-1 #### [facility] CLIA [id number] [address] STATES OF [facility] CLIA [id number] [address] [place] [address] #### 15088-5 #### [facility] CLIA [id number] [address] Creatinine and Glomerular filtration rate.predicted panel (S/P/Bld) 71 mL/min/1.73m??? Normal >=60 [facility] Comment on above: Order Comment: Speci men Type: BLOOD SPECIMEN Ordering Facility: [facility] Address: [address] [place] [address] Result Comment: Ashanti mated Glomerular Filtration Rate (eGFR) is calculated using the 2020 CKD-EPI creatinine equation. This equation utilizes serum creatinine, sex, and age as parameters. The creatinine assay has traceable calibration to isotope dilution-mass spectrometry. Refer to KDIGO guidelines for clinical interpretation. In patients with unstable renal function, e.g. those with acute kidney injury, the eGFR may not accurately reflect actual GFR. Performed By: #### 2 4331-1 #### [facility] CLIA [id number] [address] STATES OF [facility] CLIA [id number] [address] [place] [address] #### 36309-3 #### [facility] CLIA [id number] [address] [place] Glucose [Mass/Vol] 237 mg/dL High 74-99 [facility] Comment on above: Order Comment: David pulido Type: BLOOD SPECIMEN Ordering Facility: [facility] Address: [address] [place], [place] [address] Result Comment: The [place] Diabetes Association (ADA) provides guidance for cutoff values for fasting glucose and random glucose. The ADA defines fasting as no caloric intake for at least 8 hours. Fasting plasma glucose results between 100 to 125 mg/dL indicate increased risk for diabetes (prediabetes). Fasting plasma glucose results greater than or equal to 126 mg/dL meet the criteria for diagnosis of diabetes. In the absence of unequivocal hyperglycemia, results should be confirmed by repeat testing. In a patient with classic symptoms of hyperglycemia or hyperglycemic crisis, random plasma glucose results greater than or equal to 200 mg/dL meet the criteria for diagnosis of diabetes. Reference: Standards of Medical Care in Diabetes 2016, [place] Diabetes Association. Diabetes Care. 2016.39(Suppl 1). Performed By: #### 2 4331-1 #### [facility] CLIA [id number] [address] [id number] [address] [place] [address] [place] #### 82427-4 #### [facility] CLIA [id number] [address] [place] Potassium [Moles/Vol] 4.6 mmol/L Normal 3.7-5.1 [facility] Comment on above: Order Comment: David pulido Type: BLOOD SPECIMEN Ordering Facility: [facility] Address: [address] [place], [place] [id number] Performed By: #### 2 4331-1 #### [facility] CLIA [id number] 1 [place] [address] [place] [facility] [id number] [place] [address] [place] #### 63794-4 #### [facility] CLIA [id number] 1 [place] [address] [place] Sodium [Moles/Vol] 140 mmol/L Normal 136-144 [facility] Comment on above: Order Comment: Speci men Type: BLOOD SPECIMEN Ordering Facility: [facility] Address: [address] [place] [address] Performed By: #### 2 4331-1 #### [facility] CLIA [id number] [address] CLIA [id number] [address] [place] [address] [place] #### 16927-9 #### [facility] CLIA [id number] [address] Urea nitrogen [Mass/Vol] 17 mg/dL Normal 9-24 [facility] Comment on above: Order Comment: Speci men Type: BLOOD SPECIMEN Ordering Facility: [facility] Address: [address] [place] [address] Performed By: #### 2 4331-1 #### [facility] CLIA [id number] [address] CLIA [id number] [address] [place] [address] OF [place] #### 16225-4 #### [facility] CLIA [id number] [address] CNOVon 11-20-2023 CNOV Office Visit (INTMWS ) ESTELA PALUMBO ([id number]) 1955 M Date Time Provider Department 11/20/23 11:40 AM CHEMA BASHIR INTMWS During your visit today, we recorded the following information about you: Temperature Pulse Respiration Blood pressure Normal [facility] HbA1c (Bld)on 11-20-2023 Average glucose Estimated from glycated hemoglobin (Bld) [Mass/Vol] 192 mg/dL Normal [facility] Comment on above: Order Comment: David pulido Type: BLOOD SPECIMEN Ordering Facility: [facility] Address: [address] [place] [address] Result Comment: eAG: (Estimated average glucose) is a calculated value from HgbA1c and is customer sales representative of the average blood glucose level in the last 2-3 month period. Performed By: #### 5 5454-3 #### [facility] CLIA [id number] [address] [place] [address] [place] HbA1c (Bld) [Mass fraction] 8.3 % High 4.3-5.6 [facility] Comment on above: Order Comment: David pulido Type: BLOOD SPECIMEN Ordering Facility: [facility] Address: [address] [place] [address] Result Comment: [place] Diabetes Association guidelines indicate that patients with HgbA1c in the range 5.7-6.4% are at increased risk for development of diabetes, and intervention by lifestyle modification may be beneficial. HgbA1c greater or equal to 6.5% is considered diagnostic of diabetes. Performed By: #### 5 5454-3 #### [facility] CLIA [id number] [address] [place] [address] [place] CNOVon 08-26-2023 CNOV Office Visit (INTMWS ) ESTELA PALUMBO ([id number]) 1955 M Date Time Provider Department 08/26/23 4:00 PM CHEMA BASHIR INTMWS During your visit today, we recorded the following information about you: Pulse Blood pressure Weight 102/minute 134/84 86.6 kg Chema Bashir MD 08/27/2023 12:15 AM Signed This note was created using Stream Tagsriter. Subjective Patient presents with: Follow Up Estela Palumbo is a 68 year old male. He did not start Jardiance due to concerns about side effects. His diabetes mellitus was still not at goal. His hypertension was also not at goal. Home glucose readings varied. Review of Systems Constitutional: Negative for fatigue. Respiratory: Negative for shortness of breath. Cardiovascular: Negative for chest pain and palpitations. Genitourinary: Negative. Neurological: Negative. ACTIVE PROBLEM LIST Type 2 Diabetes Mellitus With Stage 3 Chronic Kidney Disease, Without Long-Term Current Use of Insulin ([facility]) Essential Hypertension Hyperlipidemia Tobacco Use Disorder Benign Prostatic Hyperplasia With Lower Urinary Tract Symptoms Ckd (Chronic Kidney Disease) Stage 3, Gfr 30-59 Ml/Min ([facility]) Social History Tobacco Use Smoking status: Former Packs/day: 0.00 Years: 20.00 Additional pack years: 0.00 Total pack years: 0.00 Types: Cigars, Cigarettes Quit date: 06/22/2015 Years since quittin.1 Smokeless tobacco: Former Types: Snuff Quit date: 08/15/2020 Tobacco comments: quit cigars, occasional snuff Vaping Use Vaping Use: Never used Substance Use Topics Alcohol use: No Drug use: No Current Outpatient Medications Medication Sig amLODIPine (NORVASC) 10 mg tablet Take 1 tablet by mouth once daily. insulin glargine (LANTUS SOLOSTAR U-100 INSULIN) 100 unit/mL (3 mL) 26 units subq at bedtime lisinopril (ZESTRIL) 40 mg tablet Take 1 tablet by mouth once daily. glipiZIDE (GLUCOTROL XL) 10mg 24 hr tablet Take 1 tablet by mouth once daily. rosuvastatin (CRESTOR) 10 mg tablet Take 1 tablet by mouth daily at bedtime. blood sugar diagnostic (BLOOD GLUCOSE TEST) test strip Test 2 times daily, Insulin Dep? Yes E11.9 DM 2 insulin needles, DISPOSABLE, (PEN NEEDLE) 31 gauge x 5/16 Use one needle per dose. 1 per day. Blood-Glucose Meter (FREESTYLE LITE METER) monitoring kit Use to check blood sugars twice daily empagliflozin (JARDIANCE) 10 mg tablet Take 1 tablet by mouth daily with breakfast. No current facility-administered medications for this visit. Objective BP 134/84 (BP Site: Left Arm, BP Position: Sitting, BP Cuff Size: Large Adult) Pulse 102 Wt 86.6 kg (191 lb) Physical Exam Constitutional: Appearance: Normal appearance. Cardiovascular: Rate and Rhythm: Regular rhythm. Tachycardia present. Heart sounds: No murmur heard. No gallop. Pulmonary: Effort: Pulmonary effort is normal. Musculoskeletal: Right lower leg: No edema. Left lower leg: No edema. Neurological: Mental Status: He is alert. Depression Screening PHQ-2 Score WILLARD-2 Total Score 08/26/2023 0 1 Depression screening tool completed and reviewed. Based on score and interview, patient is not at risk for depression. Screening tool discussed with patient, and I recommended no further intervention at this time. Latest Ref Rng 08/26/2023 Hemoglobin A1C (POCT) 4.3 - 5.6 % 7.7 ! Legend: ! Abnormal Assessment and Plan ASSESSMENT/PLAN: 1. Stage 3 chronic kidney disease, unspecified whether stage 3a or 3b CKD (HCC) - ICD9: 585.3, ICD10: N18.30 (primary diagnosis) - eGFR: 64 Stable - Counseled on avoiding NSAIDs, adequate hydration 2. Type 2 diabetes mellitus with stage 3a chronic kidney disease, without long-term current use of insulin ([facility]) - ICD9: 250.40, 585.3, ICD10: E11.22, N18.31 - Improving control - Continue current medications - eGFR: 64 Stable - Counseled on avoiding NSAIDs, adequate hydration - GLIPIZIDE ER 10 MG TABLET, EXTENDED RELEASE 24 HR - HEMOGLOBIN A1C (POC) - BASIC METABOLIC PANEL - HEMOGLOBIN A1C 3. Essential hypertension - ICD9: 401.9, ICD10: I10 - Improving control - Encouraged sodium restriction, DASH or Mediterranean diet - LISINOPRIL 40 MG TABLET. Continue. - DILTIAZEM SR 180 MG 24 HR CAP. New medication. Discussed medication dosage, usage, goals of therapy, and side effects. - Discontinue AMLODIPINE. 4. Hyperlipidemia, unspecified hyperlipidemia type - ICD9: 272.4, ICD10: E78.5 - Controlled - ROSUVASTATIN 10 MG TABLET Chema Bashir MD Referring Provider: SELF [200] Allergies As of Date: 08/26/2023 Noted Allergy Reaction KEFLEX (CEPHALEXIN) 05/30/2016 14 - Other: See Comments Comments: Skin tender and hot feeling all over Date Reviewed: 08/26/2023 Reviewed by: Aislinn Chung LPN - Fully Assessed Reason for Visit: Follow Up [171] Primary Visit Diagnosis:Stage 3 chronic kidney disease, unspe (more content not included)... Normal [facility] HEMOGLOBIN A1C (POC)on 08-25 HbA1c (Bld) [Mass fraction] 7.7 % Abnormal 4.3 - 5.6 % [facility] Comment on above: Location:[address], [place], [address] Point of care (POC) Hemoglobin A1c (HGBA1C) testing is intended to assess glucose control and provide a management tool for patients known to have diabetes and their healthcare providers. Target HGBA1C levels may depend on specific clinical circumstances. POC HGBA1C is not intended for use as a diagnostic or screening test; laboratory-based testing should be used for diagnostic purposes. The following information is supplemental and may not be applicable to specific diabetes management situations: The POC device support architect provides a normal range of 4.2% to 6.5% for the HGBA1C POC test. However, the [place] Diabetes Association guidelines indicate that patients with HGBA1C in the range of 5.7% to 6.4% are at increased risk for development of diabetes and that intervention by lifestyle modification may be beneficial. A HGBA1C level greater than or equal to 6.5% is considered diagnostic of diabetes, pending confirmatory testing. Use of HGBA1C testing to evaluate glucose control may not be appropriate for patients with hemoglobin variants or other conditions (e.g. anemia) that alter red blood cell lifespan. Interpretation and review of laboratory results Abnormal [facility] ALBUMIN/CREAT RATIO RND URon 05-21-2023 Albumin DL <= 20 mg/L (U) [Mass/Vol] 249.8 mg/L [facility] Albumin/Creatinine (U) [Mass ratio] 65 mg/g High <30 mg/g [facility] Creatinine (U) [Mass/Vol] 381.8 mg/dL High 20.0 - 300.0 mg/dL [facility] Vital Signs Date Time Vital Sign Value Performing Clinician Scott saxena 05-26-2024 13:03-0500 Body height 179.3 cm Chema Bashir MD Work Phone: [facility] 05-26-2024 13:03-0500 Body mass index (BMI) [Ratio] 26.03 kg/m2 Chema Bashir MD Work Phone: [facility] 05-26-2024 13:03-0500 Body temperature 98.6 [degF] Chema Bashir MD Work Phone: [facility] 05-26-2024 13:03-0500 Body weight 83.7 kg Chema Bashir MD Work Phone: [facility] 05-26-2024 13:03-0500 Diastolic blood pressure 72 mm[Hg] Chema Bashir MD Work Phone: [facility] 05-26-2024 13:03-0500 Heart rate 72 /min Chema Bashir MD Work Phone: [facility] 05-26-2024 13:03-0500 Respiratory rate 16 /min Chema Bashir MD Work Phone: [facility] 05-26-2024 13:03-0500 Systolic blood pressure 130 mm[Hg] Chema Bashir MD Work Phone: [facility] 04-14-2024 16:12-0500 Diastolic blood pressure 80 mm[Hg] Chema Bashir MD Work Phone: [facility] 04-14-2024 16:12-0500 Heart rate 83 /min Chema Bashir MD Work Phone: [facility] 04-14-2024 16:12-0500 Systolic blood pressure 152 mm[Hg] Chema Bashir MD Work Phone: [facility] 04-14-2024 16:02-0500 Body mass index (BMI) [Ratio] 26.86 kg/m2 Chema Bashir MD Work Phone: [facility] 04-14-2024 16:02-0500 Body weight 84.9 kg Chema Bashir MD Work Phone: [facility] 11-20-2023 11:28-0400 Body height 177.8 cm Chema Bashir MD Work Phone: [facility] 11-20-2023 11:[id number] Body mass index (BMI) [Ratio] 27.2 kg/m2 Chema Bashir MD Work Phone: [facility] 11-20-2023 11:28040 Body temperature 98.29 [degF] Chema Bashir MD Work Phone: [facility] 11-20-2023 11:28040 Body weight 86 kg Chema Bashir MD Work Phone: [facility] 11-20-2023 11:28040 Diastolic blood pressure 70 mm[Hg] Chema Bashir MD Work Phone: [facility] 11-20-2023 11:28-0400 Heart rate 95 /min Chema Bashir MD Work Phone: [facility] 11-20-2023 11:28-0400 Respiratory rate 12 /min Chema Bashir MD Work Phone: [facility] 11-20-2023 11:[id number] SaO2% (BldA) [Mass fraction] 95 % Chema Bashir MD Work Phone: [facility] 11-20-2023 11:28-0400 Systolic blood pressure 130 mm[Hg] Chema Bashir MD Work Phone: [facility] 08-26-2023 16:17-0400 Diastolic blood pressure 84 mm[Hg] Chema Bashir MD Work Phone: [facility] 08-26-2023 16:17-0400 Heart rate 102 /min Chema Bashir MD Work Phone: [facility] 08-26-2023 16:17-0400 Systolic blood pressure 134 mm[Hg] Chema Bashir MD Work Phone: [facility] 08-26-2023 16:04-0400 Body weight 86.64 kg Chema Bashir MD Work Phone: [facility] 05-20-2023 15:13-0500 Diastolic blood pressure 89 mm[Hg] Chema Bashir MD Work Phone: [facility] 05-20-2023 15:13-0500 Heart rate 111 /min Chema Bashir MD Work Phone: [facility] 05-20-2023 15:13-0500 Systolic blood pressure 143 mm[Hg] Chema Bashir MD Work Phone: [facility] 05-20-2023 14:58-0500 Body temperature 98.1 [degF] Chema Bashir MD Work Phone: [facility] 05-20-2023 14:58-0500 Body weight 89.81 kg Chema Bashir MD Work Phone: [facility] 05-20-2023 14:58-0500 Respiratory rate 18 /min Chema Bashir MD Work Phone: [facility] 11-25-2022 08:59-0400 Diastolic blood pressure 70 mm[Hg] Jemima Older LOCKS TENDER.[employer] Work Phone: [facility] 11-25-2022 08:59-0400 Systolic blood pressure 132 mm[Hg] Jemima Older LOCKS TENDER.[employer] Work Phone: [facility] 11-25-2022 08:45-0400 Body weight 87.09 kg Jemima Older LOCKS TENDER.[employer] Work Phone: [facility] 11-25-2022 08:45-0400 Heart rate 84 /min Jemima Older LOCKS TENDER.[employer] Work Phone: [facility] 11-25-2022 08:45-0400 Respiratory rate 16 /min Jemima Older LOCKS TENDER.[employer] Work Phone: [facility] 04-17-2022 09:36-0500 Diastolic blood pressure 83 mm[Hg] Chema Bashir MD Work Phone: [facility] 04-17-2022 09:36-0500 Heart rate 84 /min Chema Bashir MD Work Phone: [facility] 04-17-2022 09:36-0500 Systolic blood pressure 136 mm[Hg] Chema Bashir MD Work Phone: [facility] 04-17-2022 09:34-0500 Body temperature 97.2 [degF] Chema Bashir MD Work Phone: [facility] 04-17-2022 09:34-0500 Body weight 82.56 kg Chema Bashir MD Work Phone: [facility] 04-17-2022 09:34-0500 Respiratory rate 20 /min Chema Bashir MD Work Phone: [facility] 01-07-2022 14:16-0400 Diastolic blood pressure 84 mm[Hg] Jemima Older LOCKS TENDER.[employer] Work Phone: [facility] 01-07-2022 14:16-0400 Systolic blood pressure 148 mm[Hg] Jemima Older LOCKS TENDER.[employer] Work Phone: [facility] 01-07-2022 13:58-0400 Body weight 85.28 kg Jemima Older LOCKS TENDER.[employer] Work Phone: [facility] 01-07-2022 13:58-0400 Heart rate 96 /min Jemima Older LOCKS TENDER.[employer] Work Phone: [facility] 01-07-2022 13:58-0400 Respiratory rate 18 /min Jemima Older LOCKS TENDER.[employer] Work Phone: [facility] 10-01-2021 09:44-0400 Body weight 83.46 kg Jemima Older LOCKS TENDER.[employer] Work Phone: [facility] 10-01-2021 09:44-0400 Diastolic blood pressure 82 mm[Hg] Jemima Older LOCKS TENDER.[employer] Work Phone: [facility] 10-01-2021 09:44-0400 Heart rate 64 /min Jemima Older LOCKS TENDER.[employer] Work Phone: [facility] 10-01-2021 09:44-0400 Respiratory rate 16 /min Jemima Older LOCKS TENDER.[employer] Work Phone: [facility] 10-01-2021 09:44-0400 Systolic blood pressure 148 mm[Hg] Jemima Older LOCKS TENDER.[employer] Work Phone: [facility] Encounters Encounter Date Encounter Type Care Provider Facility Start: 10-13-2024 End: 10-14-2024 Refill Chema Bashir MD Work Phone: [facility] Comment on above: Refill Request Start: 05-26-2024 End: 05-26-2024 ambulatory CHEMA BASHIR Facility:[facility] Start: 05-26-2024 End: 05-26-2024 Patient encounter procedure Chema Bashir MD Work Phone: [facility] Comment on above: Medicare annual well ness visit, subsequent (Primary Dx); Type 2 diabetes mellitus with stage 3a chronic kidney disease, without long-term current use of insulin (HCC); Essential hypertension; Hyperlipidemia, unspecified hyperlipidemia type; Adjustment disorder with mixed anxiety and depressed mood Start: 05-25-2024 End: 05-25-2024 ambulatory CHEMA BASHIR Facility:[facility] Start: 04-14-2024 End: 04-14-2024 ambulatory CHEMA BASHIR Facility:[facility] Start: 04-14-2024 End: 04-14-2024 Office outpatient visit 25 minutes Chema Bashir MD Work Phone: [facility] Comment on above: Essential hypertensi on (Primary Dx); Adjustment disorder with mixed anxiety and depressed mood; Type 2 diabetes mellitus with stage 3a chronic kidney disease, without long-term current use of insulin (HCC); Hyperlipidemia, unspecified hyperlipidemia type; Screening for prostate cancer Start: 12-18-2023 End: 12-21-2023 Get Medical Advice Chema Bashir MD Work Phone: [facility] Comment on above: Medication refill Start: 11-20-2023 End: 11-20-2023 ambulatory CHEMA BASHIR Facility:[facility] Start: 11-20-2023 End: 11-20-2023 Office outpatient visit 25 minutes Chema Bashir MD Work Phone: [facility] Comment on above: Adjustment disorder with mixed anxiety and depressed mood (Primary Dx); Essential hypertension; Need for influenza vaccination; Type 2 diabetes mellitus with stage 3a chronic kidney disease, without long-term current use of insulin (HCC) Start: 08-26-2023 End: 08-26-2023 ambulatory CHEMA BASHIR Facility:[facility] Start: 08-26-2023 End: 08-26-2023 Patient encounter procedure Chema Bashir MD Work Phone: [facility] Comment on above: Stage 3 chronic kidn ey disease, unspecified whether stage 3a or 3b CKD (HCC) (Primary Dx); Type 2 diabetes mellitus with stage 3a chronic kidney disease, without long-term current use of insulin (HCC); Essential hypertension; Hyperlipidemia, unspecified hyperlipidemia type Start: 05-25-2023 Telephone encounter Chema ordaz MD Work Phone: [facility] Comment on above: Results Start: 05-20-2023 End: 05-20-2023 Patient encounter procedure Chema Bashir MD Work Phone: [facility] [place] Comment on above: Medicare annual well ness visit, subsequent (Primary Dx); Type 2 diabetes mellitus with stage 3a chronic kidney disease, without long-term current use of insulin (HCC); Essential hypertension; Hyperlipidemia, unspecified hyperlipidemia type; Stage 3 chronic kidney disease, unspecified whether stage 3a or 3b CKD (HCC); Screening for AAA (abdominal aortic aneurysm); Viral respiratory infection Start: 04-24-2023 Refill Chema demarco MD Work Phone: [facility] Comment on above: Refill Request Start: 03-05-2023 Refill Chema demarco MD Work Phone: [facility] Comment on above: Refill Request Start: 01-29-2023 ambulatory Daniela gannon MA [facility] [place] Comment on above: Population Health Na vigation Outreach (ACO CARE GAPS) Start: 11-25-2022 End: 11-25-2022 Patient encounter procedure Jemima Mchugh APRN.CNP Work Phone: [facility] [place] Comment on above: Type 2 diabetes lucia itus with stage 3a chronic kidney disease, without long-term current use of insulin (HCC) (Primary Dx); Essential hypertension; Stage 3 chronic kidney disease, unspecified whether stage 3a or 3b CKD (HCC); Hyperlipidemia, unspecified hyperlipidemia type; Encounter for immunization Start: 10-02-2022 Refill Chema demarco MD Work Phone: [facility] [place] Comment on above: Refill Request (LAST SENT MED UPDATE) Start: 06-16-2022 ambulatory Bella Casanova [facility] [place] Comment on above: Population Health Na vigation Outreach (/ACO Care Gaps) Start: 05-01-2022 Telephone encounter Chema ordaz MD Work Phone: [facility] Comment on above: Results; Orders Start: 04-17-2022 End: 04-17-2022 Patient encounter procedure Chema Bashir MD Work Phone: [facility] [place] Comment on above: Type 2 diabetes lucia itus with stage 3a chronic kidney disease, without long-term current use of insulin (HCC) (Primary Dx); Essential hypertension; Hyperlipidemia, unspecified hyperlipidemia type Start: 04-15-2022 Telephone encounter Chema ordaz MD Work Phone: [facility] Comment on above: Lab Orders Start: 04-14-2022 End: 04-14-2022 Patient encounter procedure Shannon Beebe OD Work Phone: Ophthalmology Comment on above: Type 2 diabetes lucia itus without retinopathy (HCC) (Primary Dx); Combined forms of age-related cataract of both eyes; Peripheral corneal degeneration, bilateral; Regular astigmatism of both eyes; Presbyopia Start: 01-07-2022 End: 01-07-2022 Patient encounter procedure Jemima Mchugh APRN.MEMBER [employer] Work Phone: [facility] Comment on above: Essential hypertensi on (Primary Dx); Type 2 diabetes mellitus with stage 3 chronic kidney disease, without long-term current use of insulin, unspecified whether stage 3a or 3b CKD (HCC) Start: 10-01-2021 End: 10-01-2021 Patient encounter procedure Jemima Older LOCKS TENDER.MEMBER [employer] Work Phone: [facility] Comment on above: Essential hypertensi on (Primary Dx); Type 2 diabetes mellitus without complication, without long-term current use of insulin (HCC); Colon cancer screening; Encounter for immunization Start: 06-18-2021 ambulatory Daniela gannon MA [employer] Comment on above: PHMA/Care Gap Outrea ch (ACO [place] PCSA) Procedures Date Procedure Procedure Detail Performing Clinician Start: 08-26-2023 Hemoglobin A1c/Hemoglobin.total in Blood Chema Bashir MD Work Phone: Start: 08-26-2023 Adult depression scr eening assessment Chema Bashir MD Work Phone: Start: 11-25-2022 INFLUENZA VACCINE, P RSV FREE, AGE 65+ YR, HIGH DOSE, QUADRIVALENT (FLUZONE HIGH-DOSE) Jemima Older LOCKS TENDER.[employer]BER [employer] Work Phone: Start: 08-15-2020 Adult depression scr eening assessment Daniela Lord MA Plan of Treatment Date Care Activity Detail Author Start: 05-25-2029 Prostate specific antigen measurement Prostate Cancer Screening Discussion [facility] Start: 01-07-2029 Urine microalbumin profile [facility] Start: 11-28-2025 Cologuard (FIT-DNA) Cologuard (FIT-D NA) [facility] Start: 11-28-2025 Colorectal Cancer Screening Colorectal Cancer Screening [facility] Start: 11-28-2025 Screening for malign ant neoplasm of colon [facility] Start: 05-26-2025 Annual PCP Team [employer] Instructor celsa Disease Visit Annual PCP Team Chronic Disease Visit [facility] Start: 05-26-2025 Medicare Annual Wellness Visit Medicare Annual Wellness Visit [facility] Start: 05-25-2025 Creatinine measurement Serum Creatin ine [facility] Start: 05-25-2025 Hepatitis B screening Urine Albumin:Creatinine Ratio [facility] Start: 05-25-2025 Hepatitis B surface antibody level LDL Cholesterol [facility] Start: 04-14-2025 Annual PCP Team [employer] Instructor celsa Disease Visit Annual PCP Team Chronic Disease Visit [facility] Start: 11-28-2024 End: 11-28-2024 Patient encounter procedure 11/28/2024 12:40 PM EDT Office Visit [facility] [address] [place] [address] Chema Bashir MD [address] [place] [address] 6 month follow-up [facility] Comment on above: 6 month follow-up Start: 11-25-2024 Hemoglobin A1c measurement HbA1C [facility] Start: 11-21-2024 Influenza vaccination Influenza Vacc ine (#1) [facility] Start: 11-19-2024 Annual PCP Team [employer] In[employer] celsa Disease Visit Annual PCP Team Chronic Disease Visit [facility] Start: 11-19-2024 Creatinine measurement Serum Creatin ine [facility] Start: 11-19-2024 Diabetic foot examination Diabetic Foot Exam [facility] Start: 11-14-2024 End: 02-13-2025 Basic metabolic 2000 panel - Serum or Plasma BASIC METABOLIC PANEL Lab Routine Type 2 diabetes mellitus with stage 3a chronic kidney disease, without long-term current use of insulin (HCC) Expected: 11/14/2024, Expires: 02/13/2025 [facility] Work Phone: Comment on above: Expected: 11/14/2024 , Expires: 02/13/2025 Start: 11-14-2024 End: 02-13-2025 Hemoglobin A1c in Blood HEMOGLOBIN A1C Lab Routine Type 2 diabetes mellitus with stage 3a chronic kidney disease, without long-term current use of insulin (HCC) Expected: 11/14/2024, Expires: 02/13/2025 [facility] Comment on above: Expected: 11/14/2024 , Expires: 02/13/2025 Start: 11-14-2024 End: 02-13-2025 Microalbumin/Creatinine [Mass Ratio] in Urine ALBUMIN/CREATININE RATIO, URINE Lab Routine Type 2 diabetes mellitus with stage 3a chronic kidney disease, without long-term current use of insulin (HCC) Expected: 11/14/2024, Expires: 02/13/2025 [facility] Comment on above: Expected: 11/14/2024 , Expires: 02/13/2025 Start: 08-25-2024 Annual PCP Team [employer] In[employer] celsa Disease Visit Annual PCP Team Chronic Disease Visit [facility] Start: 08-25-2024 Anxiety Screening Anxiety Screening [facility] Start: 08-25-2024 Depression Screening Depression Scre ening [facility] Start: 06-20-2024 End: 06-20-2024 Patient encounter procedure 06/20/2024 12:45 PM EDT Office Visit [facility] [address] [place] [address] Shannon Beebe, OD [address] [place] [address] Type 2 diabetes mellitus with stage 3a chronic kidney disease, without long-term current use of insulin (HCC) [E11.22, N18.31 Op[facility] Comment on above: Type 2 diabetes lucia itus with stage 3a chronic kidney disease, without long-term current use of insulin (HCC) [E11.22, N18.31 Start: 06-15-2024 Covid-19 Vaccine ( season) Covid-19 Vaccine () [facility] Start: 06-06-2024 End: 06-06-2024 Patient encounter procedure 06/06/2024 1:00 PM EDT Appointment Radiology [address] [place] [id number] Screening for AAA (abdominal aortic aneurysm) [Z13.6] Radiology Comment on above: Screening for AAA (a bdominal aortic aneurysm) [Z13.6] Start: 05-26-2024 End: 05-26-2024 Patient encounter procedure 05/26/2024 1:00 PM EST Office Visit [facility] [address] [facility] [place] [address] Chema Bashir MD [address] [place] [address] annual Medicare wellness [facility] Comment on above: annual Medicare well ness Start: 05-20-2024 Annual PCP Team [employer] In[employer] celsa Disease Visit Annual PCP Team Chronic Disease Visit [facility] Start: 05-20-2024 Creatinine measurement Serum Creatin ine [facility] Start: 05-20-2024 Hepatitis B screening Urine Albumin:Creatinine Ratio [facility] Start: 05-20-2024 Hepatitis B surface antibody level LDL Cholesterol [facility] Start: 05-15-2024 End: 08-14-2024 CBC panel - Blood by Automated count COMPLETE BLOOD COUNT Lab Routine Essential hypertension Expected: 05/15/2024, Expires: 08/14/2024 [facility] Work Phone: Comment on above: Expected: 05/15/2024 , Expires: 08/14/2024 Start: 05-15-2024 End: 08-14-2024 Comprehensive metabolic 2000 panel - Serum or Plasma COMPREHENSIVE METABOLIC PANEL Lab Routine Hyperlipidemia, unspecified hyperlipidemia type Expected: 05/15/2024, Expires: 08/14/2024 [facility] Comment on above: Expected: 05/15/2024 , Expires: 08/14/2024 Start: 05-15-2024 End: 08-14-2024 Hemoglobin A1c in Blood HEMOGLOBIN A1C Lab Routine Type 2 diabetes mellitus with stage 3a chronic kidney disease, without long-term current use of insulin (HCC) Expected: 05/15/2024, Expires: 08/14/2024 [facility] Comment on above: Expected: 05/15/2024 , Expires: 08/14/2024 Start: 05-15-2024 End: 08-14-2024 Lipid 1996 panel - Serum or Plasma LIPID PANEL BASIC Lab Routine Hyperlipidemia, unspecified hyperlipidemia type Expected: 05/15/2024, Expires: 08/14/2024 [facility] Comment on above: Expected: 05/15/2024 , Expires: 08/14/2024 Start: 05-15-2024 End: 08-14-2024 Microalbumin/Creatinine [Mass Ratio] in Urine ALBUMIN/CREATININE RATIO, URINE Lab Routine Type 2 diabetes mellitus with stage 3a chronic kidney disease, without long-term current use of insulin (HCC) Expected: 05/15/2024, Expires: 08/14/2024 [facility] Comment on above: Expected: 05/15/2024 , Expires: 08/14/2024 Start: 05-15-2024 End: 08-14-2024 PSA/PROSTATE SPECIFIC ANTIGEN SCREENING PSA/PROSTATE SPECIFIC ANTIGEN SCREENING Lab Routine Screening for prostate cancer Expected: 05/15/2024, Expires: 08/14/2024 [facility] Comment on above: Expected: 05/15/2024 , Expires: 08/14/2024 Start: 03-23-2024 Advance Directive Discussion Advance Directive Discussion [facility] Start: 02-25-2024 Hemoglobin A1c measurement HbA1C [facility] Start: 02-22-2024 End: 02-22-2024 Patient encounter procedure 02/22/2024 3:40 PM EST Office Visit [facility] [address] [place] [address] Chema Bashir MD [address] [place] [address] 3 Month follow up [facility] Comment on above: 3 Month follow up Start: 02-20-2024 Hemoglobin A1c measurement HbA1C [facility] Start: 01-30-2024 PROSTATE CANCER SCREENING DISCUSSION PROSTATE CANCER SCREENING DISCUSSION [facility] Start: 01-30-2024 Prostate specific antigen measurement Prostate Cancer Screening Discussion [facility] Start: 11-26-2023 ANNUAL PCP TEAM ORDER DESK CALLER CELSA DISEASE VISIT ANNUAL PCP TEAM CHRONIC DISEASE VISIT [facility] Start: 11-26-2023 End: 02-25-2024 Basic metabolic 2000 panel - Serum or Plasma BASIC METABOLIC PANEL Lab Routine Type 2 diabetes mellitus with stage 3a chronic kidney disease, without long-term current use of insulin (HCC) Expected: 11/26/2023, Expires: 02/25/2024 [facility] Work Phone: Comment on above: Expected: 11/26/2023 , Expires: 02/25/2024 Start: 11-26-2023 BP CONTROLLED (<130/80) BP CONTROLLE D (<130/80) [facility] Start: 11-26-2023 End: 02-25-2024 Hemoglobin A1c in Blood HEMOGLOBIN A1C Lab Routine Type 2 diabetes mellitus with stage 3a chronic kidney disease, without long-term current use of insulin (HCC) Expected: 11/26/2023, Expires: 02/25/2024 [facility] Comment on above: Expected: 11/26/2023 , Expires: 02/25/2024 Start: 11-22-2023 Covid-19 Vaccine (7 - 2024-25 season) Covid-19 Vaccine () [facility] Start: 11-20-2023 End: 11-20-2023 Patient encounter procedure 11/20/2023 11:40 AM EDT [facility] [address] [facility] [place] [place] [address] Chema Bashir MD [address] [place] [address] 3 month follow-up [facility] Comment on above: 3 month follow-up Start: 10-15-2023 3 comp foot exam completed DIABETIC FOOT EXAM [facility] Start: 10-15-2023 COVID-19 VACCINE (6 - Moderna series) COVID-19 VACCINE (6 - Moderna series) [facility] Comment on above: Postponed from 03/30 (Declined at this time) Start: 10-15-2023 Creatinine measurement Serum Creatin ine [facility] Start: 10-15-2023 Diabetic foot examination Diabetic Foot Exam [facility] Start: 10-15-2023 Hepatitis B surface antibody level LDL CHOLESTEROL [facility] Start: 10-15-2023 SERUM CREATININE SERUM CREATININE [facility] Start: 08-18-2023 Hemoglobin A1c measurement HbA1C [facility] Start: 05-20-2023 End: 08-19-2023 Comprehensive metabolic 2000 panel - Serum or Plasma [facility] Work Phone: Comment on above: Expected: 05/20/2023 , Expires: 08/19/2023 Start: 05-20-2023 End: 08-19-2023 Hemoglobin A1c in Blood [facility] Work Phone: Comment on above: Expected: 05/20/2023 , Expires: 08/19/2023 Start: 05-20-2023 End: 08-19-2023 LIPID PANEL, NONFASTING [facility] Work Phone: Comment on above: Expected: 05/20/2023 , Expires: 08/19/2023 Start: 05-09-2023 Covid-19 Vaccine () Covid-19 Vaccine () [facility] Start: 04-17-2023 ANNUAL PCP TEAM ORDER DESK CALLER CELSA DISEASE VISIT ANNUAL PCP TEAM CHRONIC DISEASE VISIT [facility] Start: 04-16-2023 SERUM CREATININE SERUM CREATININE [facility] Start: 04-14-2023 Glaucoma screening Dilated Retinal E xam [facility] Start: 04-14-2023 Hepatitis C antibody , confirmatory test DILATED RETINAL EXAM [facility] Start: 03-23-2023 Advance Directive Discussion Advance Directive Discussion [facility] Start: 03-23-2023 Depression Assessment Depression Ass essment [facility] Start: 01-14-2023 Hemoglobin A1c measurement HbA1C [facility] Start: 01-14-2023 Hemoglobin A1c/Hemoglobin.total in Blood HBA1C [facility] Start: 01-07-2023 ANNUAL PCP TEAM ORDER DESK CALLER CELSA DISEASE VISIT ANNUAL PCP TEAM CHRONIC DISEASE VISIT [facility] Start: 01-07-2023 Hepatitis B screening URINE ALBUMIN:CREATININE RATIO [facility] Start: 01-07-2023 SERUM CREATININE SERUM CREATININE [facility] Start: 01-07-2023 SHINGRIX VACCINE (1 of 2) SHINGRIX VACCINE (1 of 2) [facility] Comment on above: Postponed from 06/18 (Declined at this time) Start: 11-21-2022 Influenza vaccination INFLUENZA (#1) [facility] Start: 10-14-2022 Hemoglobin A1c/Hemoglobin.total in Blood HBA1C [facility] Start: 10-01-2022 3 comp foot exam completed DIABETIC FOOT EXAM [facility] Start: 10-01-2022 ANNUAL PCP TEAM ORDER DESK CALLER CELSA DISEASE VISIT ANNUAL PCP TEAM CHRONIC DISEASE VISIT [facility] Start: 07-22-2022 Hepatitis B surface antibody level LDL CHOLESTEROL [facility] Start: 07-22-2022 SERUM CREATININE SERUM CREATININE [facility] Start: 04-16-2022 End: 06-16-2022 Basic metabolic 2000 panel - Serum or Plasma [facility] Work Phone: Comment on above: Expected: 04/16/2022 , Expires: 06/16/2022 Start: 04-16-2022 End: 06-16-2022 Hemoglobin A1c in Blood [facility] Work Phone: Comment on above: Expected: 04/16/2022 , Expires: 06/16/2022 Start: 04-09-2022 Hemoglobin A1c/Hemoglobin.total in Blood HBA1C [facility] Start: 03-30-2022 COVID-19 VACCINE (6 - Moderna series) COVID-19 VACCINE (6 - Moderna series) [facility] Start: 03-23-2022 ADVANCE DIRECTIVE DISCUSSION ADVANCE DIRECTIVE DISCUSSION [facility] Start: 03-23-2022 DEPRESSION ASSESSMENT DEPRESSION ASS ESSMENT [facility] Start: 01-07-2022 End: 03-09-2022 ALBUMIN/CREAT RATIO RND UR [facility] Work Phone: Comment on above: Expected: 01/07/2022 , Expires: 03/09/2022 Start: 01-07-2022 End: 03-09-2022 Comprehensive metabolic 2000 panel - Serum or Plasma [facility] Work Phone: Comment on above: Expected: 01/07/2022 , Expires: 03/09/2022 Start: 01-07-2022 End: 03-09-2022 Hemoglobin A1c in Blood [facility] Work Phone: Comment on above: Expected: 01/07/2022 , Expires: 03/09/2022 Start: 11-21-2021 Influenza vaccination INFLUENZA (#1) [facility] Start: 10-22-2021 Hemoglobin A1c/Hemoglobin.total in Blood HBA1C [facility] Start: 10-01-2021 End: 12-01-2021 ALBUMIN/CREAT RATIO RND UR ALBUMIN/CREAT RATIO RND UR Lab Routine Type 2 diabetes mellitus without complication, without long-term current use of insulin (HCC) Expected: 10/01/2021, Expires: 12/01/2021 [facility] Work Phone: Comment on above: Expected: 10/01/2021 , Expires: 12/01/2021 Start: 08-15-2021 Adult depression screening assessment DEPRESSION SCREENING [facility] Start: 08-15-2021 ANNUAL PCP TEAM ORDER DESK CALLER CELSA DISEASE VISIT ANNUAL PCP TEAM CHRONIC DISEASE VISIT [facility] Start: 08-14-2021 Hepatitis B screening URINE ALBUMIN:CREATININE RATIO [facility] Start: 08-14-2021 Hepatitis B surface antibody level LDL CHOLESTEROL [facility] Start: 08-14-2021 SERUM CREATININE SERUM CREATININE [facility] Start: 03-23-2021 ADVANCE DIRECTIVE DISCUSSION ADVANCE DIRECTIVE DISCUSSION [facility] Start: 02-14-2021 Hemoglobin A1c/Hemoglobin.total in Blood HBA1C [facility] Start: 12-20-2020 3 comp foot exam completed DIABETIC FOOT EXAM [facility] Start: 11-21-2020 Influenza vaccination INFLUENZA (#1) [facility] Start: 06-18-2020 PNEUMOVAX AGE 65 AND OVER WITH 5YR LOOKBACK (#1) PNEUMOVAX AGE 65 AND OVER WITH 5YR LOOKBACK (#1) [facility] Start: 01-30-2020 COLORECTAL CANCER SCREENING COLORECTAL CANCER SCREENING [facility] Start: 01-30-2020 FECAL OCCULT BLOOD FECAL OCCULT BLOO D [facility] Start: 01-30-2020 Screening for malign ant neoplasm of colon Fecal Occult Blood [facility] Start: 02-20-2017 Hepatitis C antibody , confirmatory test DILATED RETINAL EXAM [facility] Start: 2015 Hepatitis B Vaccine (1 of 3 - Risk 3-dose series) Hepatitis B Vaccine (1 of 3 - Risk 3-dose series) [facility] Start: 2015 RSV Vaccine (1 - 1-d ose 60+ series) RSV Vaccine (1 - 1-dose 60+ series) [facility] Start: 2015 RSV Vaccine (1 - Ris k 60-74 years 1-dose series) RSV Vaccine (1 - Risk 60-74 years 1-dose series) [facility] Start: 06-18-2005 SHINGRIX VACCINE (1 of 2) SHINGRIX VACCINE (1 of 2) [facility] Start: 06-18-2000 COLOGUARD (FIT-DNA) COLOGUARD (FIT-D NA) [facility] Start: 06-18-2000 Colonoscopy COLONOSCOPY [facility] Start: 06-18-[address] COLONOGRAPHY [facility] Start: 06-18-2000 Screening for malign ant neoplasm of colon [facility] Start: 06-18-2000 [facility] Start: 06-18-1973 BP CONTROLLED (<130/80) BP CONTROLLE D (<130/80) [facility] Start: 1955 ABDOMINAL AORTIC ANEURYSM SCREENING ABDOMINAL AORTIC ANEURYSM SCREENING [facility] Start: 1955 Abdominal aortic aneurysm screening Abdominal Aortic Aneurysm Screening [facility] COLOGUARD COLOGUARD Lab Ro utine Colon cancer screening Ordered: 10/01/2021 [facility] Work Phone: Comment on above: Ordered: 10/01/2021 End: 06-18-2024 US Abdominal Aorta for screening US SCREENING FOR AAA Radiology Routine Screening for AAA (abdominal aortic aneurysm) 1 Occurrences starting 05/20/2023 until 06/18/2024 [facility] Work Phone: Comment on above: 1 Occurrences starti ng 05/20/2023 until 06/18/2024 [facility] Immunizations Immunization Date Immunization Notes Care Provider Fa claudia 12-17-2023 COVID-19 vaccine, ag e 12+ yr (MODERNA) Chema Bashri MD Work Phone: [facility] 11-20-2023 influenza, high dose seasonal, preservative-free Chema Bashir MD Work Phone: [facility] 11-20-2023 influenza virus vacc ine, unspecified formulation Chema Bashir MD Work Phone: [facility] 01-06-2023 COVID-19 vaccine, ag e 12+ yr, season (MODERNA) Daniela Lord MA [facility] 12-18-2022 respiratory syncytia l virus (RSV) vaccine, adjuvanted (AREXVY) Chema Bashir MD Work Phone: [facility] 11-25-2022 influenza (HD-IIV4) vaccine, age 65+ yr, high dose, quadrivalent, PF (FLUZONE HIGH-DOSE) Jemima Older LOCKS TENDER.MEMBER [employer] Work Phone: [facility] 12-17-2021 influenza, high dose seasonal, preservative-free Jemima Older LOCKS TENDER.MEMBER OF THE [employer] Work Phone: [facility] 10-01-2021 pneumococcal (PCV20) vaccine, 20 valent (PREVNAR 20) Jemima Older LOCKS TENDER.MEMBER [employer] THE [employer] Work Phone: [facility] 10-01-2021 pneumococcal Conjuga te, unspecified formulation Jemima Older LOCKS TENDER.MEMBER OF THE [employer] Work Phone: [facility] Work Phone: 07-10-2020 COVID-19 vaccine, fu ll dose (MODERNA) Daniela Lord MA [facility] Work Phone: 06-12-2020 COVID-19 vaccine, fu ll dose (MODERNA) Daniela Lord MA [facility] Work Phone: 12-21-2019 influenza, injectabl e, quadrivalent, contains preservative Daniela Lord MA [facility] 01-07-2019 tetanus and diphther ia toxoids, adsorbed, preservative free, for adult use (5 Lf of tetanus toxoid and 2 Lf of diphtheria toxoid) Daniela Lord MA [facility] 01-31-2010 influenza virus vacc ine, unspecified formulation Daniela Lord [facility] Work Phone: 12-15-2008 influenza virus vacc ine, unspecified formulation Daniela Pop [facility] Work Phone: 07-21-2008 pneumococcal polysaccharide vaccine, 23 valent Daniela Lord MA [facility] 07-21-2008 tetanus toxoid, redu vikram diphtheria toxoid, and acellular pertussis vaccine, adsorbed Daniela Lord [facility] Payers Date Payer Category Payer Medicare MEDICARE MEDICAR E A AND B [id number] 2020-Present [phone] [place] [address] Medicare [id number] 2020 Medicare [id number]. [id number] 2020 Medicare [id number] Social History Date Type Detail Facility Start: 01-07-2022 End: 11-20-2023 Tobacco smoking status NHIS Ex-smoker [facility] End: 06-22-2015 History of tobacco use Current smoker [facility] End: 06-22-2015 History of tobacco use Cigar Smoker [facility] End: 08-15-2020 History of tobacco use Snuff User [facility] Start: 03-13-2021 End: 04-14-2024 Alcohol intake Current non-drinker of alcohol (finding) [facility] Start: 02-02-2017 End: 01-07-2022 Tobacco Comment quit cigars, occasional snuff [facility] Start: 1955 Sex Assigned At Not on file C [facility] Start: 09-10-2021 End: 12-22-2021 Exposure to SARS-CoV-2 (event) Not sure [facility] End: 06-22-2015 History of tobacco use Cigarette Smoker [facility] Start: 01-07-2022 End: 10-14-2022 Cigarette pack-years [facility] Work Phone: Start: 01-07-2022 End: 11-20-2023 Tobacco use and exposure Former smokeless tobacco user [facility] Start: 04-17-2022 End: 10-14-2022 Tobacco use panel [facility] Work Phone: Adult Depression Screening Assessment 0 [facility] Work Phone: How often to you hav e a drink containing alcohol? Never [facility] Work Phone: Has the [employer], or [employer] threatened to shut off services in your home in past 12Mo No [facility] Are you now , , , , never or living with a partner? [facility] Do you feel stress - tense, restless, nervous, or anxious, or unable to sleep at night because your mind is troubled all the time - these days [OSQ] Not at all [facility] (I/We) worried wheth er (my/our) food would run out before (I/we) got money to buy more. Never true [facility] Medical Equipment Procedure Code Equipment Code Equipment Origin al Text Equipment Identifier Dates [id number], [id number] Start: 01-10-2019 Comment on above: Test 2 times daily, Insulin Dep? Yes E11.9 DM 2 Use one needle per d ose. 1 per day. Functional Status Date Assessment Result Facility 10-16-2015 Are you deaf, or do you have serious difficulty hearing No 10/16/2015 10:40 AM Chema Samuel MD No [facility] 10-16-2015 Are you blind, or do you have serious difficulty seeing, even when wearing glasses No 10/16/2015 10:40 AM Chema Samuel MD No [facility] 10-16-2015 Do you have serious difficulty walking or climbing stairs No 10/16/2015 10:40 AM Chema Samuel MD No [facility] 10-16-2015 Do you have difficul ty dressing or bathing No 10/16/2015 10:40 AM Chema Samuel MD No [facility] 10-16-2015 Because of a physica l, mental, or emotional condition, do you have difficulty doing errands alone such as visiting a physician's office or shopping No 10/16/2015 10:40 AM Chema Samuel MD No [facility] Mental Status Date Assessment Result Facility 10-16-2015 Because of a physica l, mental, or emotional condition, do you have serious difficulty concentrating, remembering, or making decisions No 10/16/2015 10:40 AM Chema Samuel MD [facility] Clinical Notes 10-16-2015 to 10-14-2024 Telephone Encounter - Geraldine Ventura MA - 10/14/2024 1:59 PM EDTTelephone Encounter - Geraldine Ventura MA - 10/14/2024 1:59 PM Chema Kendall MD - 05/26/2024 1:48 PM EST Note Date & Type Note Facility 10-14-2024 Telephone encount er Note Patient has been identified by name and date of : yes Patient phones for refill(s): Requested Prescriptions Pending Prescriptions Disp Refills rosuvastatin (CRESTOR) 10 mg tablet 90 tablet 3 Sig: Take 1 tablet by mouth daily at bedtime. Date of last office visit in primary care: 05/26/2024 Date of next office visit in primary care: 11/28/2024 Please advise. Thank you. Geraldine Ventura MA. [facility] 10-14-2024 Miscellaneous Notes Formattin g of this note is different from the original. Patient has been identified by name and date of : yes Patient phones for refill(s): Requested Prescriptions Pending Prescriptions Disp Refills rosuvastatin (CRESTOR) 10 mg tablet 90 tablet 3 Sig: Take 1 tablet by mouth daily at bedtime. Date of last office visit in primary care: 05/26/2024 Date of next office visit in primary care: 11/28/2024 Please advise. Thank you. Geraldine Ventura MA. documented in this encounter [facility] 10-14-2024 Telephone encount er Note Patient has been identified by name and date of : yes Patient phones for refill(s): Requested Prescriptions Pending Prescriptions Disp Refills lisinopril (ZESTRIL) 40 mg tablet 90 tablet 1 Sig: Take 1 tablet by mouth once daily. Date of last office visit in primary care: 05/26/2024 Date of next office visit in primary care: 11/28/24 Please advise. Thank you. Geraldine Ventura MA. [facility] 10-14-2024 Miscellaneous Notes Formattin g of this note is different from the original. Patient has been identified by name and date of : yes Patient phones for refill(s): Requested Prescriptions Pending Prescriptions Disp Refills lisinopril (ZESTRIL) 40 mg tablet 90 tablet 1 Sig: Take 1 tablet by mouth once daily. Date of last office visit in primary care: 05/26/2024 Date of next office visit in primary care: 11/28/24 Please advise. Thank you. Geraldine Ventura MA. documented in this encounter [facility] 05-26-2024 Note HNO ID: [id number] Author: CHEMA BASHIR MD Service: ? Author Type: Physician Type: Progress Notes Filed: 05/26/2024 13:52 Note Text: This note was created using Stream Tagsriter. Subjective Estela Palumbo is a 68 year old male. He was doing well. Blood pressure is better back on lisinopril. Review of Systems Constitutional: Negative for fatigue. Respiratory: Negative for shortness of breath. Cardiovascular: Negative for chest pain. Neurological: Negative for dizziness. ACTIVE PROBLEM LIST Type 2 Diabetes Mellitus With Stage 3 Chronic Kidney Disease, Without Long-Term Current Use of Insulin ([facility]) Essential Hypertension Hyperlipidemia Tobacco Use Disorder Benign Prostatic Hyperplasia With Lower Urinary Tract Symptoms Ckd (Chronic Kidney Disease) Stage 3, Gfr 30-59 Ml/Min ([facility]) Adjustment Disorder With Mixed Anxiety and Depressed Mood Social History Tobacco Use Smoking status: Former Current packs/day: 0.00 Types: Cigars, Cigarettes Quit date: 06/22/1995 Years since quittin.9 Smokeless tobacco: Former Types: Snuff Quit date: 08/15/2020 Tobacco comments: quit cigars, occasional snuff Vaping Use Vaping status: Never Used Substance Use Topics Alcohol use: No Drug use: No Objective BP 130/72 (BP Site: Left Arm, BP Position: Sitting, BP Cuff Size: Large Adult) Pulse 72 Temp 37 ?C (98.6 ?F) (Temporal) Resp 16 Ht 179.3 cm (5' 10.6) Wt 83.7 kg (184 lb 8.4 oz) BMI 26.03 kg/m? Physical Exam Constitutional: Appearance: Normal appearance. Cardiovascular: Rate and Rhythm: Normal rate and regular rhythm. Heart sounds: No murmur heard. No gallop. Pulmonary: Breath sounds: Normal breath sounds. Musculoskeletal: Right lower leg: No edema. Left lower leg: No edema. Neurological: Mental Status: He is alert. Latest Ref Rng 05/25/2024 Protein, Total 6.3 - 8.0 g/dL 7.5 Albumin 3.9 - 4.9 g/dL 4.5 Calcium 8.5 - 10.2 mg/dL 10.0 Bilirubin, Total 0.2 - 1.3 mg/dL 0.4 Alkaline Phosphatase 38 - 113 U/L 69 AST 14 - 40 U/L 22 ALT 10 - 54 U/L 18 Glucose 74 - 99 mg/dL 146 (H) BUN 9 - 24 mg/dL 15 Creatinine 0.73 - 1.22 mg/dL 1.18 Sodium 136 - 144 mmol/L 137 Potassium 3.7 - 5.1 mmol/L 4.6 Chloride 98 - 107 mmol/L 100 CO2 22 - 30 mmol/L 24 Anion Gap 8 - 15 mmol/L 13 eGFR >=60 mL/min/1.73m? 67 WBC 3.70 - 11.00 k/uL 9.69 RBC 4.20 - 6.00 m/uL 5.65 Hemoglobin 13.0 - 17.0 g/dL 15.1 Hematocrit 39.0 - 51.0 % 46.4 MCV 80.0 - 100.0 fL 82.1 MCH 26.0 - 34.0 pg 26.7 MCHC 30.5 - 36.0 g/dL 32.5 RDW-CV 11.5 - 15.0 % 13.3 Platelet Count 150 - 400 k/uL 296 MPV 9.0 - 12.7 fL 10.6 Absolute nRBC <0.01 k/uL <0.01 Cholesterol, Total <200 mg/dL 106 Triglyceride <150 mg/dL 57 HDL Cholesterol >39 mg/dL 42 Non HDL Cholesterol <130 mg/dL 64 Fasting Time hrs 12 VLDL Cholesterol <30 mg/dL 11 TC:HDL Ratio <5.10 2.52 LDL Cholesterol <100 mg/dL 53 LDL:HDL Ratio <2.54 1.26 Creatinine, Ur Random (UCRR) 46.8 - 314.5 mg/dL 40.7 (L) Albumin, Urine Random mg/L <12.0 Albumin/Creat Ratio <30 mg/g <29 Hemoglobin A1C 4.3 - 5.6 % 7.7 (H) Estimated Average Glucose mg/dL 174 PSA Screening <2.60 ng/mL 1.12 Legend: (H) High (L) Low Assessment and Plan 1. Medicare annual wellness visit, subsequent - ICD9: V70.0, ICD10: Z00.00 (primary diagnosis) - See wellness visit. 2. Type 2 diabetes mellitus with stage 3a chronic kidney disease, without long-term current use of insulin (HCC) - ICD9: 250.40, 585.3, ICD10: E11.22, N18.31 - Improving control - Continue current medications - Bring meter next time. - eGFR: 67 Stable - LANTUS SOLOSTAR U-100 INSULIN 100 UNIT/ML (3 ML) SUBCUTANEOUS PEN - CONSULT TO OPHTHALMOLOGY - BASIC METABOLIC PANEL - HEMOGLOBIN A1C - ALBUMIN/CREATININE RATIO, URINE 3. Essential hypertension - ICD9: 401.9, ICD10: I10 - Improving control - Continue current medications - Recommend home blood pressure monitoring, to bring results to next visit - Encouraged sodium restriction, DASH or Mediterranean diet - Recommend regular aerobic exercise 4. Hyperlipidemia, unspecified hyperlipidemia type - ICD9: 272.4, ICD10: E78.5 - Controlled - Continue current medications - Counseled on healthy diet and regular exercise 5. Adjustment disorder with mixed anxiety and depressed mood - ICD9: 309.28, ICD10: F43.23 - Controlled. He was satisfied with his current dose. Chema Bashir MD [facility] 05-26-2024 History of Presen t illness Narrative This note was created using Stream Tagsriter. Subjective Estela Palumbo is a 68 year old male. He was doing well. Blood pressure is better back on lisinopril. Review of Systems Constitutional: Negative for fatigue. Respiratory: Negative for shortness of breath. Cardiovascular: Negative for chest pain. Neurological: Negative for dizziness. ACTIVE PROBLEM LIST Type 2 Diabetes Mellitus With Stage 3 Chronic Kidney Disease, Without Long-Term Current Use of Insulin (Hcc) Essential Hypertension Hyperlipidemia Tobacco Use Disorder Benign Prostatic Hyperplasia With Lower Urinary Tract Symptoms Ckd (Chronic Kidney Disease) Stage 3, Gfr 30-59 Ml/Min ([facility]) Adjustment Disorder With Mixed Anxiety and Depressed Mood Social History Tobacco Use Smoking status: Former Current packs/day: 0.00 Types: Cigars, Cigarettes Quit date: 06/22/1995 Years since quittin.9 Smokeless tobacco: Former Types: Snuff Quit date: 08/15/2020 Tobacco comments: quit cigars, occasional snuff Vaping Use Vaping status: Never Used Substance Use Topics Alcohol use: No Drug use: No Objective BP 130/72 (BP Site: Left Arm, BP Position: Sitting, BP Cuff Size: Large Adult) Pulse 72 Temp 37 C (98.6 F) (Temporal) Resp 16 Ht 179.3 cm (5' 10.6) Wt 83.7 kg (184 lb 8.4 oz) BMI 26.03 kg/m Physical Exam Constitutional: Appearance: Normal appearance. Cardiovascular: Rate and Rhythm: Normal rate and regular rhythm. Heart sounds: No murmur heard. No gallop. Pulmonary: Breath sounds: Normal breath sounds. Musculoskeletal: Right lower leg: No edema. Left lower leg: No edema. Neurological: Mental Status: He is alert. Latest Ref Rng 05/25/2024 Protein, Total 6.3 - 8.0 g/dL 7.5 Albumin 3.9 - 4.9 g/dL 4.5 Calcium 8.5 - 10.2 mg/dL 10.0 Bilirubin, Total 0.2 - 1.3 mg/dL 0.4 Alkaline Phosphatase 38 - 113 U/L 69 AST 14 - 40 U/L 22 ALT 10 - 54 U/L 18 Glucose 74 - 99 mg/dL 146 (H) BUN 9 - 24 mg/dL 15 Creatinine 0.73 - 1.22 mg/dL 1.18 Sodium 136 - 144 mmol/L 137 Potassium 3.7 - 5.1 mmol/L 4.6 Chloride 98 - 107 mmol/L 100 CO2 22 - 30 mmol/L 24 Anion Gap 8 - 15 mmol/L 13 eGFR >=60 mL/min/1.73m 67 WBC 3.70 - 11.00 k/uL 9.69 RBC 4.20 - 6.00 m/uL 5.65 Hemoglobin 13.0 - 17.0 g/dL 15.1 Hematocrit 39.0 - 51.0 % 46.4 MCV 80.0 - 100.0 fL 82.1 MCH 26.0 - 34.0 pg 26.7 MCHC 30.5 - 36.0 g/dL 32.5 RDW-CV 11.5 - 15.0 % 13.3 Platelet Count 150 - 400 k/uL 296 MPV 9.0 - 12.7 fL 10.6 Absolute nRBC <0.01 k/uL <0.01 Cholesterol, Total <200 mg/dL 106 Triglyceride <150 mg/dL 57 HDL Cholesterol >39 mg/dL 42 Non HDL Cholesterol <130 mg/dL 64 Fasting Time hrs 12 VLDL Cholesterol <30 mg/dL 11 TC:HDL Ratio <5.10 2.52 LDL Cholesterol <100 mg/dL 53 LDL:HDL Ratio <2.54 1.26 Creatinine, Ur Random (UCRR) 46.8 - 314.5 mg/dL 40.7 (L) Albumin, Urine Random mg/L <12.0 Albumin/Creat Ratio <30 mg/g <29 Hemoglobin A1C 4.3 - 5.6 % 7.7 (H) Estimated Average Glucose mg/dL 174 PSA Screening <2.60 ng/mL 1.12 Legend: (H) High (L) Low Assessment and Plan 1. Medicare annual wellness visit, subsequent - ICD9: V70.0, ICD10: Z00.00 (primary diagnosis) - See wellness visit. 2. Type 2 diabetes mellitus with stage 3a chronic kidney disease, without long-term current use of insulin (HCC) - ICD9: 250.40, 585.3, ICD10: E11.22, N18.31 - Improving control - Continue current medications - Bring meter next time. - eGFR: 67 Stable - LANTUS SOLOSTAR U-100 INSULIN 100 UNIT/ML (3 ML) SUBCUTANEOUS PEN - CONSULT TO OPHTHALMOLOGY - BASIC METABOLIC PANEL - HEMOGLOBIN A1C - ALBUMIN/CREATININE RATIO, URINE 3. Essential hypertension - ICD9: 401.9, ICD10: I10 - Improving control - Continue current medications - Recommend home blood pressure monitoring, to bring results to next visit - Encouraged sodium restriction, DASH or Mediterranean diet - Recommend regular aerobic exercise 4. Hyperlipidemia, unspecified hyperlipidemia type - ICD9: 272.4, ICD10: E78.5 - Controlled - Continue current medications - Counseled on healthy diet and regular exercise 5. Adjustment disorder with mixed anxiety and depressed mood - ICD9: 309.28, ICD10: F43.23 - Controlled. He was satisfied with his current dose. Chema Bashir MD Images from the original note were not included. Estela Palumbo is a 68 year old male here for a Medicare wellness visit. Medicare Health Risk Assessment General Health Good Exercise: Minutes/Day 30 min Exercise: Days/Week 3 days Alcohol: Daily Use Never Alcohol: Drinks/Day Patient does not drink Alcohol: 6 or more drinks Never Feel off balance No Concerns: Teeth/Dentures No Concerns: Sexual function No Troubled by feelings Anxious Frequency: Eating healthy diet Nearly every day ADLs requiring help None of the above Safety precautions in home/vehicle Yes Smoke, vape, chews tobacco No Difficulty hearing No Difficulty seeing No Current Providers Specialists: I have reviewed specialist-related care of the patient in the medical record. Current care team: Patient Care Team: Chema Bashir MD as PCP - General (Internal Medicine) Jemima Ba APRN.[employer] as Loss Prevention Lead (Internal Medicine) Shannon Beebe OD Optometry. Outside specialists seen: none. Medical/Family history review Reviewed and updated problem list, medical/surgical/family/social history, medications, and allergies. Opioid use review Opioid Medications (last 90 days) No data to display Anxiety/Depression screening Recommendation: continuing current treatment plan Cognitive screening Mini Cog Score: 4 Cognitive screening reviewed and No further action needed (score 3-5). Functional Observation Was the patient's Timed Up & Go test unsteady or >= 12 seconds? No Advance Care Planning Patient did not wish or was not able to name a surrogate decision maker or provide an advance care plan Measurements BP 130/72 (BP Site: Left Arm, BP Position: Sitting, BP Cuff Size: Large Adult) Pulse 72 Temp 37 C (98.6 F) (Temporal) Resp 16 Ht 179.3 cm (5' 10.6) Wt 83.7 kg (184 lb 8.4 oz) BMI 26.03 kg/m Vision Screening: Follows with optometry/ophthalmology Right: 20/20 Left: 20/ 20 Both: 20/20 Assessment/Plan Medicare annual wellness visit, subsequent (Z00.00) - Counseled on healthy diet and regular exercise - Fall avoidance information provided - Personalized prevention plan provided - Discussed need for and benefit of weight loss. BMI 26.03 kg/(m^2) - Vaccines reviewed. - AAA screening not done. Schedule. documented in this encounter [facility] 05-26-2024 Instructions Chema Bashir MD - 05/26/2024 1:32 PM EST Advance Directive Forms Advanced Directives Forms ([place]) FORMS: [email or web address] INFORMATIONAL BROCHURE: [email or web address]?la=[email or web address] Advance Directives (non-[place]arian) FORMS: [email or web address] [email or web address] Please bring completed forms to your next appointment or email them to [email or web address]. Patient Resources How to Get Started Talking with Loved Ones about your Wishes at the End of Life [email or web address]/wp-content/uploads/ 2/ConversationProject-ConvoSta [email or web address]-[email or web address].pdf How to Navigate Conversations with your Care Team around your Preferences [email or web address] documented in this encounter [facility] 05-26-2024 Note HNO ID: [id number] Author: CHEMA BASHIR MD Service: ? Author Type: Physician Type: Progress Notes Filed: 05/26/2024 13:52 Note Text: Estela Palumbo is a 68 year old male here for a Medicare wellness visit. Medicare Health Risk Assessment General Health Good Exercise: Minutes/Day 30 min Exercise: Days/Week 3 days Alcohol: Daily Use Never Alcohol: Drinks/Day Patient does not drink Alcohol: 6 or more drinks Never Feel off balance No Concerns: Teeth/Dentures No Concerns: Sexual function No Troubled by feelings Anxious Frequency: Eating healthy diet Nearly every day ADLs requiring help None of the above Safety precautions in home/vehicle Yes Smoke, vape, chews tobacco No Difficulty hearing No Difficulty seeing No Current Providers Specialists: I have reviewed specialist-related care of the patient in the medical record. Current care team: Patient Care Team: Chema Bashir MD as PCP - General (Internal Medicine) Jemima Ba LOCKS TENDER.[employer] as Loss Prevention Lead (Internal Medicine) Shannon Beebe OD Optometry. Outside specialists seen: none. Medical/Family history review Reviewed and updated problem list, medical/surgical/family/social history, medications, and allergies. Opioid use review Opioid Medications (last 90 days) No data to display Anxiety/Depression screening Recommendation: continuing current treatment plan Cognitive screening Mini Cog Score: 4 Cognitive screening reviewed and No further action needed (score 3-5). Functional Observation Was the patient's Timed Up AND Go test unsteady or >= 12 seconds? No Advance Care Planning Patient did not wish or was not able to name a surrogate decision maker or provide an advance care plan Measurements BP 130/72 (BP Site: Left Arm, BP Position: Sitting, BP Cuff Size: Large Adult) Pulse 72 Temp 37 ?C (98.6 ?F) (Temporal) Resp 16 Ht 179.3 cm (5' 10.6) Wt 83.7 kg (184 lb 8.4 oz) BMI 26.03 kg/m? Vision Screening: Follows with optometry/ophthalmology Right: 20/20 Left: 20/ 20 Both: 20/20 Assessment/Plan Medicare annual wellness visit, subsequent (Z00.00) - Counseled on healthy diet and regular exercise - Fall avoidance information provided - Personalized prevention plan provided - Discussed need for and benefit of weight loss. BMI 26.03 kg/(m2) - Vaccines reviewed. - AAA screening not done. Schedule. [facility] 04-14-2024 Note HNO ID: [id number] Author: CHEMA BASHIR MD Service: ? Author Type: Physician Type: Progress Notes Filed: 04/14/2024 16:43 Note Text: This note was created using NoteWriter. Subjective Estela Palumbo is a 68 year old male. He was doing well. He declined endocrinology referral last labs. His hypertension was elevated. On medication reconciliation, he stopped lisinopril for unclear reasons. Sertraline was helping his mood, and he was interested in a higher dose. Review of Systems Constitutional: Negative for fatigue. Respiratory: Negative for shortness of breath. Cardiovascular: Negative for chest pain and palpitations. Neurological: Negative for dizziness and headaches. Psychiatric/Behavioral: Negative for dysphoric mood. The patient is not nervous/anxious. ACTIVE PROBLEM LIST Type 2 Diabetes Mellitus With Stage 3 Chronic Kidney Disease, Without Long-Term Current Use of Insulin (Hcc) Essential Hypertension Hyperlipidemia Tobacco Use Disorder Benign Prostatic Hyperplasia With Lower Urinary Tract Symptoms Ckd (Chronic Kidney Disease) Stage 3, Gfr 30-59 Ml/Min ([facility]) Adjustment Disorder With Mixed Anxiety and Depressed Mood Social History Tobacco Use Smoking status: Former Current packs/day: 0.00 Types: Cigars, Cigarettes Quit date: 06/22/1995 Years since quittin.8 Smokeless tobacco: Former Types: Snuff Quit date: 08/15/2020 Tobacco comments: quit cigars, occasional snuff Vaping Use Vaping status: Never Used Substance Use Topics Alcohol use: No Drug use: No Current Outpatient Medications Medication Sig sertraline (ZOLOFT) 25 mg tablet Take 1 tablet by mouth once daily. insulin glargine (LANTUS SOLOSTAR U-100 INSULIN) 100 unit/mL (3 mL) 26 units subq at bedtime dilTIAZem CD (CARDIZEM CD) 240 mg 24 hr capsule Take 1 capsule by mouth once daily. glipiZIDE (GLUCOTROL XL) 10mg 24 hr tablet Take 1 tablet by mouth once daily. rosuvastatin (CRESTOR) 10 mg tablet Take 1 tablet by mouth daily at bedtime. blood sugar diagnostic (BLOOD GLUCOSE TEST) test strip Test 2 times daily, Insulin Dep? Yes E11.9 DM 2 insulin needles, DISPOSABLE, (PEN NEEDLE) 31 gauge x 5/16 Use one needle per dose. 1 per day. Blood-Glucose Meter (FREESTYLE LITE METER) monitoring kit Use to check blood sugars twice daily lisinopril (ZESTRIL) 40 mg tablet Take 1 tablet by mouth once daily. No current facility-administered medications for this visit. Objective BP 152/80 (BP Site: Left Arm, BP Position: Sitting, BP Cuff Size: Large Adult) Pulse 83 Wt 84.9 kg (187 lb 2.7 oz) BMI 26.86 kg/m? Physical Exam Constitutional: Appearance: Normal appearance. Cardiovascular: Rate and Rhythm: Normal rate and regular rhythm. Heart sounds: No murmur heard. No gallop. Pulmonary: Breath sounds: Normal breath sounds. Musculoskeletal: Right lower leg: No edema. Left lower leg: No edema. Neurological: Mental Status: He is alert. Psychiatric: Mood and Affect: Mood normal. Assessment and Plan 1. Essential hypertension - ICD9: 401.9, ICD10: I10 (primary diagnosis) - Worsening control - Continue current medications - Encouraged sodium restriction, DASH or Mediterranean diet - Restart LISINOPRIL. - LISINOPRIL 40 MG TABLET - COMPLETE BLOOD COUNT 2. Adjustment disorder with mixed anxiety and depressed mood - ICD9: 309.28, ICD10: F43.23 Improved. Dose increased. - SERTRALINE 50 MG TABLET 3. Type 2 diabetes mellitus with stage 3a chronic kidney disease, without long-term current use of insulin (HCC) - ICD9: 250.40, 585.3, ICD10: E11.22, N18.31 - Control undetermined, due for labs - Continue current medications - eGFR: 71 Due for labs - HEMOGLOBIN A1C - ALBUMIN/CREATININE RATIO, URINE 4. Hyperlipidemia, unspecified hyperlipidemia type - ICD9: 272.4, ICD10: E78.5 - Control undetermined, due for labs - Continue current medications - COMPREHENSIVE METABOLIC PANEL - LIPID PANEL BASIC 5. Screening for prostate cancer - ICD9: V76.44, ICD10: Z12.5 - Risks/benefits of prostate cancer screening discussed. screening PSA ordered - PSA/PROSTATE SPECIFIC ANTIGEN SCREENING Chema Bashir MD [facility] 04-14-2024 History of Presen t illness Narrative This note was created using Stream Tagsriter. Subjective Estela Palumbo is a 68 year old male. He was doing well. He declined endocrinology referral last labs. His hypertension was elevated. On medication reconciliation, he stopped lisinopril for unclear reasons. Sertraline was helping his mood, and he was interested in a higher dose. Review of Systems Constitutional: Negative for fatigue. Respiratory: Negative for shortness of breath. Cardiovascular: Negative for chest pain and palpitations. Neurological: Negative for dizziness and headaches. Psychiatric/Behavioral: Negative for dysphoric mood. The patient is not nervous/anxious. ACTIVE PROBLEM LIST Type 2 Diabetes Mellitus With Stage 3 Chronic Kidney Disease, Without Long-Term Current Use of Insulin (Hcc) Essential Hypertension Hyperlipidemia Tobacco Use Disorder Benign Prostatic Hyperplasia With Lower Urinary Tract Symptoms Ckd (Chronic Kidney Disease) Stage 3, Gfr 30-59 Ml/Min (Hcc) Adjustment Disorder With Mixed Anxiety and Depressed Mood Social History Tobacco Use Smoking status: Former Current packs/day: 0.00 Types: Cigars, Cigarettes Quit date: 06/22/1995 Years since quittin.8 Smokeless tobacco: Former Types: Snuff Quit date: 08/15/2020 Tobacco comments: quit cigars, occasional snuff Vaping Use Vaping status: Never Used Substance Use Topics Alcohol use: No Drug use: No Current Outpatient Medications Medication Sig sertraline (ZOLOFT) 25 mg tablet Take 1 tablet by mouth once daily. insulin glargine (LANTUS SOLOSTAR U-100 INSULIN) 100 unit/mL (3 mL) 26 units subq at bedtime dilTIAZem CD (CARDIZEM CD) 240 mg 24 hr capsule Take 1 capsule by mouth once daily. glipiZIDE (GLUCOTROL XL) 10mg 24 hr tablet Take 1 tablet by mouth once daily. rosuvastatin (CRESTOR) 10 mg tablet Take 1 tablet by mouth daily at bedtime. blood sugar diagnostic (BLOOD GLUCOSE TEST) test strip Test 2 times daily, Insulin Dep? Yes E11.9 DM 2 insulin needles, DISPOSABLE, (PEN NEEDLE) 31 gauge x 5/16 Use one needle per dose. 1 per day. Blood-Glucose Meter (FREESTYLE LITE METER) monitoring kit Use to check blood sugars twice daily lisinopril (ZESTRIL) 40 mg tablet Take 1 tablet by mouth once daily. No current facility-administered medications for this visit. Objective BP 152/80 (BP Site: Left Arm, BP Position: Sitting, BP Cuff Size: Large Adult) Pulse 83 Wt 84.9 kg (187 lb 2.7 oz) BMI 26.86 kg/m Physical Exam Constitutional: Appearance: Normal appearance. Cardiovascular: Rate and Rhythm: Normal rate and regular rhythm. Heart sounds: No murmur heard. No gallop. Pulmonary: Breath sounds: Normal breath sounds. Musculoskeletal: Right lower leg: No edema. Left lower leg: No edema. Neurological: Mental Status: He is alert. Psychiatric: Mood and Affect: Mood normal. Assessment and Plan 1. Essential hypertension - ICD9: 401.9, ICD10: I10 (primary diagnosis) - Worsening control - Continue current medications - Encouraged sodium restriction, DASH or Mediterranean diet - Restart LISINOPRIL. - LISINOPRIL 40 MG TABLET - COMPLETE BLOOD COUNT 2. Adjustment disorder with mixed anxiety and depressed mood - ICD9: 309.28, ICD10: F43.23 Improved. Dose increased. - SERTRALINE 50 MG TABLET 3. Type 2 diabetes mellitus with stage 3a chronic kidney disease, without long-term current use of insulin (HCC) - ICD9: 250.40, 585.3, ICD10: E11.22, N18.31 - Control undetermined, due for labs - Continue current medications - eGFR: 71 Due for labs - HEMOGLOBIN A1C - ALBUMIN/CREATININE RATIO, URINE 4. Hyperlipidemia, unspecified hyperlipidemia type - ICD9: 272.4, ICD10: E78.5 - Control undetermined, due for labs - Continue current medications - COMPREHENSIVE METABOLIC PANEL - LIPID PANEL BASIC 5. Screening for prostate cancer - ICD9: V76.44, ICD10: Z12.5 - Risks/benefits of prostate cancer screening discussed. screening PSA ordered - PSA/PROSTATE SPECIFIC ANTIGEN SCREENING Chema Bashir MD documented in this encounter [facility] 12-21-2023 Telephone encount er Note Prescription Refill Information The patient has been identified by name and date of : Yes Caregiver verified no other encounters exist for this prescription request: Yes Caregiver confirmed with patient/requestor that no other refills are due, in the near future, with this provider at this time: Yes The last office visit in the department: Does the patient have a future office visit with this provider/department: Yes Requested Prescriptions Pending Prescriptions Disp Refills sertraline (ZOLOFT) 25 mg tablet 30 tablet 0 Sig: Take 1 tablet by mouth once daily. Jose Sánchez MA December 21, 2023 8:02 AM [facility] 12-21-2023 Miscellaneous Notes Formattin g of this note is different from the original. Prescription Refill Information The patient has been identified by name and date of : Yes Caregiver verified no other encounters exist for this prescription request: Yes Caregiver confirmed with patient/requestor that no other refills are due, in the near future, with this provider at this time: Yes The last office visit in the department: Does the patient have a future office visit with this provider/department: Yes Requested Prescriptions Pending Prescriptions Disp Refills sertraline (ZOLOFT) 25 mg tablet 30 tablet 0 Sig: Take 1 tablet by mouth once daily. Jose Sánchez MA December 21, 2023 8:02 AM documented in this encounter [facility] 11-20-2023 Instructions Chema Bashir MD - 11/20/2023 12:18 PM EDT BLOOD WORK TODAY. documented in this encounter [facility] 11-20-2023 Note HNO ID: [id number] Author: CHEMA BASHIR MD Service: ? Author Type: Physician Type: Progress Notes Filed: 11/20/2023 14:40 Note Text: This note was created using [email or web address]. Subjective Patient presents with: F/U Diabetes 3 Month: discuss anxiety and med refills needed Immunizations: Flu vaccination Estela Palumbo is a 68 year old male. His diabetes mellitus was reportedly improving. He did not do labs. His hypertension was close to goal. He realized that he may be having some depression and anxiety for the past year, with stressors worrying about his grandchildren and his 's health. Review of Systems Constitutional: Negative for fatigue and fever. Respiratory: Negative for cough and shortness of breath. Cardiovascular: Negative for chest pain, palpitations and leg swelling. Gastrointestinal: Negative for diarrhea, nausea and vomiting. Neurological: Negative for dizziness and headaches. Psychiatric/Behavioral: Negative for self-injury, sleep disturbance and suicidal ideas. ACTIVE PROBLEM LIST Type 2 Diabetes Mellitus With Stage 3 Chronic Kidney Disease, Without Long-Term Current Use of Insulin ([facility]) Essential Hypertension Hyperlipidemia Tobacco Use Disorder Benign Prostatic Hyperplasia With Lower Urinary Tract Symptoms Ckd (Chronic Kidney Disease) Stage 3, Gfr 30-59 Ml/Min ([facility]) Social History Tobacco Use Smoking status: Former Current packs/day: 0.00 Types: Cigars, Cigarettes Quit date: 06/22/1995 Years since quittin.4 Smokeless tobacco: Former Types: Snuff Quit date: 08/15/2020 Tobacco comments: quit cigars, occasional snuff Vaping Use Vaping status: Never Used Substance Use Topics Alcohol use: No Drug use: No Current Outpatient Medications Medication Sig glipiZIDE (GLUCOTROL XL) 10mg 24 hr tablet Take 1 tablet by mouth once daily. lisinopril (ZESTRIL) 40 mg tablet Take 1 tablet by mouth once daily. rosuvastatin (CRESTOR) 10 mg tablet Take 1 tablet by mouth daily at bedtime. dilTIAZem CD (CARDIZEM CD) 180 mg 24 hr capsule Take 1 capsule by mouth once daily. insulin glargine (LANTUS SOLOSTAR U-100 INSULIN) 100 unit/mL (3 mL) 26 units subq at bedtime blood sugar diagnostic (BLOOD GLUCOSE TEST) test strip Test 2 times daily, Insulin Dep? Yes E11.9 DM 2 insulin needles, DISPOSABLE, (PEN NEEDLE) 31 gauge x 5/16 Use one needle per dose. 1 per day. Blood-Glucose Meter (FREESTYLE LITE METER) monitoring kit Use to check blood sugars twice daily No current facility-administered medications for this visit. Objective BP 130/70 (BP Site: Left Arm, BP Position: Sitting, BP Cuff Size: Large Adult) Pulse 95 Temp 36.8 ?C (98.3 ?F) Resp 12 Ht 177.8 cm (5' 10) Wt 86 kg (189 lb 9.5 oz) SpO2 95% BMI 27.20 kg/m? Physical Exam Constitutional: Appearance: Normal appearance. HENT: Head: Normocephalic. Nose: No congestion. Eyes: Conjunctiva/sclera: Conjunctivae normal. Cardiovascular: Rate and Rhythm: Normal rate and regular rhythm. Heart sounds: No murmur heard. No gallop. Pulmonary: Breath sounds: Normal breath sounds. Musculoskeletal: Right lower leg: No edema. Left lower leg: No edema. Feet:Shoes and socks removed, No deformities, ulcers, calluses, normal distal pulses, and sensitive to 10 gm monofilament. 11/20/2023 CP PHQ9 Little interest or pleasure 1 - Several days Feeling down, depressed, hopeless 0 - Not at all Trouble falling or staying asleep, sleeping too much 0 - Not at all Feeling tired, having little energy 1 - Several days Poor appetite or overeating 2 - More than half the days Feeling bad about yourself, failure or you have let yourself/family down 0 - Not at all Trouble concentrating on things 1 - Several days Moving or speaking so slowly, or fidgety or restless 2 - More than half the days Thoughts that you would be better off , or of hurting yourself in some way 0 - Not at all How difficult have these problems made things Somewhat difficult Interpretation of Total Score 5-9 Mild depression WILLARD-7 ANXIETY SCALE Feeling nervous, anxious, or on edge 2 Over half the days Not being able to stop or control worrying 3 Nearly every day Worrying too much about different things 2 Over half the days Trouble relaxing 1 Several days Being so restless that it's hard to sit still 1 Several days Being easily annoyed or irritable 1 Several days Feeling afraid as if something awful might happen 0 Not at all sure WILLARD-7 Anxiety Score 10 If you checked off any problems, how difficult have these problems made it for you to do your work, take care of things at home, or get along with other people? Somewhat difficult Assessment and Plan 1. Adjustment disorder with mixed anxiety and depressed mood - ICD9: 309.28, ICD10: F43.23 (primary diagnosis) Discussed medication dosage, usage, goals of therapy, and side effects. Call for refill, dose adjustment or concerns. Counseling re (more content not included)... [facility] 11-20-2023 History of Presen t illness Narrative This note was created using [employer]. Subjective Patient presents with: F/U Diabetes 3 Month: discuss anxiety and med refills needed Immunizations: Flu vaccination Estela Palumbo is a 68 year old male. His diabetes mellitus was reportedly improving. He did not do labs. His hypertension was close to goal. He realized that he may be having some depression and anxiety for the past year, with stressors worrying about his grandchildren and his 's health. Review of Systems Constitutional: Negative for fatigue and fever. Respiratory: Negative for cough and shortness of breath. Cardiovascular: Negative for chest pain, palpitations and leg swelling. Gastrointestinal: Negative for diarrhea, nausea and vomiting. Neurological: Negative for dizziness and headaches. Psychiatric/Behavioral: Negative for self-injury, sleep disturbance and suicidal ideas. ACTIVE PROBLEM LIST Type 2 Diabetes Mellitus With Stage 3 Chronic Kidney Disease, Without Long-Term Current Use of Insulin (Hcc) Essential Hypertension Hyperlipidemia Tobacco Use Disorder Benign Prostatic Hyperplasia With Lower Urinary Tract Symptoms Ckd (Chronic Kidney Disease) Stage 3, Gfr 30-59 Ml/Min ([facility]) Social History Tobacco Use Smoking status: Former Current packs/day: 0.00 Types: Cigars, Cigarettes Quit date: 06/22/1995 Years since quittin.4 Smokeless tobacco: Former Types: Snuff Quit date: 08/15/2020 Tobacco comments: quit cigars, occasional snuff Vaping Use Vaping status: Never Used Substance Use Topics Alcohol use: No Drug use: No Current Outpatient Medications Medication Sig glipiZIDE (GLUCOTROL XL) 10mg 24 hr tablet Take 1 tablet by mouth once daily. lisinopril (ZESTRIL) 40 mg tablet Take 1 tablet by mouth once daily. rosuvastatin (CRESTOR) 10 mg tablet Take 1 tablet by mouth daily at bedtime. dilTIAZem CD (CARDIZEM CD) 180 mg 24 hr capsule Take 1 capsule by mouth once daily. insulin glargine (LANTUS SOLOSTAR U-100 INSULIN) 100 unit/mL (3 mL) 26 units subq at bedtime blood sugar diagnostic (BLOOD GLUCOSE TEST) test strip Test 2 times daily, Insulin Dep? Yes E11.9 DM 2 insulin needles, DISPOSABLE, (PEN NEEDLE) 31 gauge x 5/16 Use one needle per dose. 1 per day. Blood-Glucose Meter (FREESTYLE LITE METER) monitoring kit Use to check blood sugars twice daily No current facility-administered medications for this visit. Objective BP 130/70 (BP Site: Left Arm, BP Position: Sitting, BP Cuff Size: Large Adult) Pulse 95 Temp 36.8 C (98.3 F) Resp 12 Ht 177.8 cm (5' 10) Wt 86 kg (189 lb 9.5 oz) SpO2 95% BMI 27.20 kg/m Physical Exam Constitutional: Appearance: Normal appearance. HENT: Head: Normocephalic. Nose: No congestion. Eyes: Conjunctiva/sclera: Conjunctivae normal. Cardiovascular: Rate and Rhythm: Normal rate and regular rhythm. Heart sounds: No murmur heard. No gallop. Pulmonary: Breath sounds: Normal breath sounds. Musculoskeletal: Right lower leg: No edema. Left lower leg: No edema. Feet:Shoes and socks removed, No deformities, ulcers, calluses, normal distal pulses, and sensitive to 10 gm monofilament. 11/20/2023 CP PHQ9 Little interest or pleasure 1 - Several days Feeling down, depressed, hopeless 0 - Not at all Trouble falling or staying asleep, sleeping too much 0 - Not at all Feeling tired, having little energy 1 - Several days Poor appetite or overeating 2 - More than half the days Feeling bad about yourself, failure or you have let yourself/family down 0 - Not at all Trouble concentrating on things 1 - Several days Moving or speaking so slowly, or fidgety or restless 2 - More than half the days Thoughts that you would be better off , or of hurting yourself in some way 0 - Not at all How difficult have these problems made things Somewhat difficult Interpretation of Total Score 5-9 Mild depression WILLARD-7 ANXIETY SCALE Feeling nervous, anxious, or on edge 2 Over half the days Not being able to stop or control worrying 3 Nearly every day Worrying too much about different things 2 Over half the days Trouble relaxing 1 Several days Being so restless that it's hard to sit still 1 Several days Being easily annoyed or irritable 1 Several days Feeling afraid as if something awful might happen 0 Not at all sure WILLARD-7 Anxiety Score 10 If you checked off any problems, how difficult have these problems made it for you to do your work, take care of things at home, or get along with other people? Somewhat difficult Assessment and Plan 1. Adjustment disorder with mixed anxiety and depressed mood - ICD9: 309.28, ICD10: F43.23 (primary diagnosis) Discussed medication dosage, usage, goals of therapy, and side effects. Call for refill, dose adjustment or concerns. Counseling referral declined. - SERTRALINE 25 MG TABLET 2. Essential hypertension - ICD9: 401.9, ICD10: I10 - Improving control - Continue current medications - DILTIAZEM SR 240 MG 24 HR CAP. Increase dose. Discussed medication dosage, usage, goals of therapy, and side effects. 3. Need for influenza vaccination - ICD9: V04.81, ICD10: Z23 - INFLUENZA VACCINE, PRSV FREE, AGE 65+ YR, HIGH DOSE, TRIVALENT (FLUZONE HIGH-DOSE) 4. Type 2 diabetes mellitus with stage 3a chronic kidney disease, without long-term current use of insulin (HCC) - ICD9: 250.40, 585.3, ICD10: E11.22, N18.31 - Control undetermined, due for labs - Continue current medications - LANTUS SOLOSTAR U-100 INSULIN 100 UNIT/ML (3 ML) SUBCUTANEOUS PEN Chema Bashir MD documented in this encounter [facility] 08-26-2023 Note HNO ID: [id number] Author: CHEMA BASHIR MD Service: ? Author Type: Physician Type: Progress Notes Filed: 08/27/2023 00:15 Note Text: This note was created using [email or web address]. Subjective Patient presents with: Follow Up Estela Palumbo is a 68 year old male. He did not start Jardiance due to concerns about side effects. His diabetes mellitus was still not at goal. His hypertension was also not at goal. Home glucose readings varied. Review of Systems Constitutional: Negative for fatigue. Respiratory: Negative for shortness of breath. Cardiovascular: Negative for chest pain and palpitations. Genitourinary: Negative. Neurological: Negative. ACTIVE PROBLEM LIST Type 2 Diabetes Mellitus With Stage 3 Chronic Kidney Disease, Without Long-Term Current Use of Insulin ([facility]) Essential Hypertension Hyperlipidemia Tobacco Use Disorder Benign Prostatic Hyperplasia With Lower Urinary Tract Symptoms Ckd (Chronic Kidney Disease) Stage 3, Gfr 30-59 Ml/Min ([facility]) Social History Tobacco Use Smoking status: Former Packs/day: 0.00 Years: 20.00 Additional pack years: 0.00 Total pack years: 0.00 Types: Cigars, Cigarettes Quit date: 06/22/2015 Years since quittin.1 Smokeless tobacco: Former Types: Snuff Quit date: 08/15/2020 Tobacco comments: quit cigars, occasional snuff Vaping Use Vaping Use: Never used Substance Use Topics Alcohol use: No Drug use: No Current Outpatient Medications Medication Sig amLODIPine (NORVASC) 10 mg tablet Take 1 tablet by mouth once daily. insulin glargine (LANTUS SOLOSTAR U-100 INSULIN) 100 unit/mL (3 mL) 26 units subq at bedtime lisinopril (ZESTRIL) 40 mg tablet Take 1 tablet by mouth once daily. glipiZIDE (GLUCOTROL XL) 10mg 24 hr tablet Take 1 tablet by mouth once daily. rosuvastatin (CRESTOR) 10 mg tablet Take 1 tablet by mouth daily at bedtime. blood sugar diagnostic (BLOOD GLUCOSE TEST) test strip Test 2 times daily, Insulin Dep? Yes E11.9 DM 2 insulin needles, DISPOSABLE, (PEN NEEDLE) 31 gauge x 5/16 Use one needle per dose. 1 per day. Blood-Glucose Meter (FREESTYLE LITE METER) monitoring kit Use to check blood sugars twice daily empagliflozin (JARDIANCE) 10 mg tablet Take 1 tablet by mouth daily with breakfast. No current facility-administered medications for this visit. Objective BP 134/84 (BP Site: Left Arm, BP Position: Sitting, BP Cuff Size: Large Adult) Pulse 102 Wt 86.6 kg (191 lb) Physical Exam Constitutional: Appearance: Normal appearance. Cardiovascular: Rate and Rhythm: Regular rhythm. Tachycardia present. Heart sounds: No murmur heard. No gallop. Pulmonary: Effort: Pulmonary effort is normal. Musculoskeletal: Right lower leg: No edema. Left lower leg: No edema. Neurological: Mental Status: He is alert. Depression Screening PHQ-2 Score WILLARD-2 Total Score 08/26/2023 0 1 Depression screening tool completed and reviewed. Based on score and interview, patient is not at risk for depression. Screening tool discussed with patient, and I recommended no further intervention at this time. Latest Ref Rng 08/26/2023 Hemoglobin A1C (POCT) 4.3 - 5.6 % 7.7 ! Legend: ! Abnormal Assessment and Plan ASSESSMENT/PLAN: 1. Stage 3 chronic kidney disease, unspecified whether stage 3a or 3b CKD (HCC) - ICD9: 585.3, ICD10: N18.30 (primary diagnosis) - eGFR: 64 Stable - Counseled on avoiding NSAIDs, adequate hydration 2. Type 2 diabetes mellitus with stage 3a chronic kidney disease, without long-term current use of insulin (HCC) - ICD9: 250.40, 585.3, ICD10: E11.22, N18.31 - Improving control - Continue current medications - eGFR: 64 Stable - Counseled on avoiding NSAIDs, adequate hydration - GLIPIZIDE ER 10 MG TABLET, EXTENDED RELEASE 24 HR - HEMOGLOBIN A1C (POC) - BASIC METABOLIC PANEL - HEMOGLOBIN A1C 3. Essential hypertension - ICD9: 401.9, ICD10: I10 - Improving control - Encouraged sodium restriction, DASH or Mediterranean diet - LISINOPRIL 40 MG TABLET. Continue. - DILTIAZEM SR 180 MG 24 HR CAP. New medication. Discussed medication dosage, usage, goals of therapy, and side effects. - Discontinue AMLODIPINE. 4. Hyperlipidemia, unspecified hyperlipidemia type - ICD9: 272.4, ICD10: E78.5 - Controlled - ROSUVASTATIN 10 MG TABLET Chema Bashir MD [facility] 08-26-2023 History of Presen t illness Narrative This note was created using [employer]. Subjective Patient presents with: Follow Up Estela Palumbo is a 68 year old male. He did not start Jardiance due to concerns about side effects. His diabetes mellitus was still not at goal. His hypertension was also not at goal. Home glucose readings varied. Review of Systems Constitutional: Negative for fatigue. Respiratory: Negative for shortness of breath. Cardiovascular: Negative for chest pain and palpitations. Genitourinary: Negative. Neurological: Negative. ACTIVE PROBLEM LIST Type 2 Diabetes Mellitus With Stage 3 Chronic Kidney Disease, Without Long-Term Current Use of Insulin ([facility]) Essential Hypertension Hyperlipidemia Tobacco Use Disorder Benign Prostatic Hyperplasia With Lower Urinary Tract Symptoms Ckd (Chronic Kidney Disease) Stage 3, Gfr 30-59 Ml/Min ([facility]) Social History Tobacco Use Smoking status: Former Packs/day: 0.00 Years: 20.00 Additional pack years: 0.00 Total pack years: 0.00 Types: Cigars, Cigarettes Quit date: 06/22/2015 Years since quittin.1 Smokeless tobacco: Former Types: Snuff Quit date: 08/15/2020 Tobacco comments: quit cigars, occasional snuff Vaping Use Vaping Use: Never used Substance Use Topics Alcohol use: No Drug use: No Current Outpatient Medications Medication Sig amLODIPine (NORVASC) 10 mg tablet Take 1 tablet by mouth once daily. insulin glargine (LANTUS SOLOSTAR U-100 INSULIN) 100 unit/mL (3 mL) 26 units subq at bedtime lisinopril (ZESTRIL) 40 mg tablet Take 1 tablet by mouth once daily. glipiZIDE (GLUCOTROL XL) 10mg 24 hr tablet Take 1 tablet by mouth once daily. rosuvastatin (CRESTOR) 10 mg tablet Take 1 tablet by mouth daily at bedtime. blood sugar diagnostic (BLOOD GLUCOSE TEST) test strip Test 2 times daily, Insulin Dep? Yes E11.9 DM 2 insulin needles, DISPOSABLE, (PEN NEEDLE) 31 gauge x 5/16 Use one needle per dose. 1 per day. Blood-Glucose Meter (FREESTYLE LITE METER) monitoring kit Use to check blood sugars twice daily empagliflozin (JARDIANCE) 10 mg tablet Take 1 tablet by mouth daily with breakfast. No current facility-administered medications for this visit. Objective BP 134/84 (BP Site: Left Arm, BP Position: Sitting, BP Cuff Size: Large Adult) Pulse 102 Wt 86.6 kg (191 lb) Physical Exam Constitutional: Appearance: Normal appearance. Cardiovascular: Rate and Rhythm: Regular rhythm. Tachycardia present. Heart sounds: No murmur heard. No gallop. Pulmonary: Effort: Pulmonary effort is normal. Musculoskeletal: Right lower leg: No edema. Left lower leg: No edema. Neurological: Mental Status: He is alert. Depression Screening PHQ-2 Score WILLARD-2 Total Score 08/26/2023 0 1 Depression screening tool completed and reviewed. Based on score and interview, patient is not at risk for depression. Screening tool discussed with patient, and I recommended no further intervention at this time. Latest Ref Rng 08/26/2023 Hemoglobin A1C (POCT) 4.3 - 5.6 % 7.7 ! Legend: ! Abnormal Assessment and Plan ASSESSMENT/PLAN: 1. Stage 3 chronic kidney disease, unspecified whether stage 3a or 3b CKD (HCC) - ICD9: 585.3, ICD10: N18.30 (primary diagnosis) - eGFR: 64 Stable - Counseled on avoiding NSAIDs, adequate hydration 2. Type 2 diabetes mellitus with stage 3a chronic kidney disease, without long-term current use of insulin (HCC) - ICD9: 250.40, 585.3, ICD10: E11.22, N18.31 - Improving control - Continue current medications - eGFR: 64 Stable - Counseled on avoiding NSAIDs, adequate hydration - GLIPIZIDE ER 10 MG TABLET, EXTENDED RELEASE 24 HR - HEMOGLOBIN A1C (POC) - BASIC METABOLIC PANEL - HEMOGLOBIN A1C 3. Essential hypertension - ICD9: 401.9, ICD10: I10 - Improving control - Encouraged sodium restriction, DASH or Mediterranean diet - LISINOPRIL 40 MG TABLET. Continue. - DILTIAZEM SR 180 MG 24 HR CAP. New medication. Discussed medication dosage, usage, goals of therapy, and side effects. - Discontinue AMLODIPINE. 4. Hyperlipidemia, unspecified hyperlipidemia type - ICD9: 272.4, ICD10: E78.5 - Controlled - ROSUVASTATIN 10 MG TABLET Chema Bashir MD documented in this encounter [facility] 05-25-2023 Miscellaneous Notes Formattin g of this note might be different from the original. Patient returned call and went over results, notes from Dr Bashir with understanding. Patient is willing to start the rx, [facility] requesting 90 day rx. Left a message for pt to call the office and ask to speak to a nurse. Myrna Sifuentes LPN ----- Message from Chema Bashir MD sent at 05/23/2023 11:18 PM EST ----- Diabetes worse. CKD stable. We'll review more 06/27/23. Consider adding Jardiance 10 mg 1 tablet po daily for diabetes mellitus. documented in this encounter [facility] 05-25-2023 Evaluation note Diagnosis Type 2 diabetes mellitus with stage 3a chronic kidney disease, without long-term current use of insulin (HCC)- Primary documented in this encounter [facility]02-28-[facility]24 History of Present illness Narrative* Chema Bashir MD - 05/20/2023 3:30 PM EST This note was created using Stream Tagsriter. Subjective Estela Palumbo is a 67 year old male. He felt well in general. He acknowledged weight gain. Blood pressure was also not at goal. He was taking all his medications. He had a mild cold for a few days. Covid testing at home was negative. Review of Systems Constitutional: Negative for fatigue, fever and unexpected weight change. Eyes: Negative. Respiratory: Negative for cough, shortness of breath and wheezing. Cardiovascular: Negative for chest pain, palpitations and leg swelling. Genitourinary: Negative. Neurological: Negative for dizziness and headaches. ACTIVE PROBLEM LIST Type 2 Diabetes Mellitus With Stage 3 Chronic Kidney Disease, Without Long-Term Current Use of Insulin ([facility]) Essential Hypertension Hyperlipidemia Tobacco Use Disorder Benign Prostatic Hyperplasia With Lower Urinary Tract Symptoms Ckd (Chronic Kidney Disease) Stage 3, Gfr 30-59 Ml/Min ([facility]) Current Outpatient Medications Medication Sig amLODIPine (NORVASC) 10 mg tablet Take 1 tablet by mouth once daily. insulin glargine (LANTUS SOLOSTAR U-100 INSULIN) 100 unit/mL (3 mL) 26 units subq at bedtime lisinopril (ZESTRIL) 40 mg tablet Take 1 tablet by mouth once daily. glipiZIDE (GLUCOTROL XL) 10mg 24 hr tablet Take 1 tablet by mouth once daily. rosuvastatin (CRESTOR) 10 mg tablet Take 1 tablet by mouth daily at bedtime. blood sugar diagnostic (BLOOD GLUCOSE TEST) test strip Test 2 times daily, Insulin Dep? Yes E11.9 DM 2 insulin needles, DISPOSABLE, (PEN NEEDLE) 31 gauge x 5/16 Use one needle per dose. 1 per day. Blood-Glucose Meter (FREESTYLE LITE METER) monitoring kit Use to check blood sugars twice daily No current facility-administered medications for this visit. Objective BP 143/89 (BP Site: Left Arm, BP Position: Sitting, BP Cuff Size: Large Adult) Pulse 111 Temp 36.7 C (98.1 F) (Temporal) Resp 18 Wt 89.8 kg (198 lb) Physical Exam Constitutional: General: He is not in acute distress. HENT: Head: Normocephalic. Eyes: Conjunctiva/sclera: Conjunctivae normal. Cardiovascular: Rate and Rhythm: Regular rhythm. Tachycardia present. Heart sounds: No murmur heard. No gallop. Pulmonary: Effort: No respiratory distress. Breath sounds: Wheezing present. No rales. Musculoskeletal: Right lower leg: No edema. Left lower leg: No edema. Neurological: General: No focal deficit present. Mental Status: He is alert. Assessment and Plan 1. Medicare annual wellness visit, subsequent - ICD9: V70.0, ICD10: Z00.00 (primary diagnosis) See wellness note. 2. Type 2 diabetes mellitus with stage 3a chronic kidney disease, without long- term current use of insulin (HCC) - ICD9: 250.40, 585.3, ICD10: E11.22, N18.31 - Control undetermined, due for labs - Continue current medications - COMP METABOLIC PANEL - HGB A1C - ALBUMIN/CREAT RATIO RND UR - CONSULT TO OPHTHALMOLOGY 3. Essential hypertension - ICD9: 401.9, ICD10: I10 - Worsening control - Continue current medications. Caffeine intake may be a factor today. Recheck in 6 weeks. 4. Hyperlipidemia, unspecified hyperlipidemia type - ICD9: 272.4, ICD10: E78.5 - Controlled - Continue current medications - Counseled on healthy diet and regular exercise - LIPID PANEL, NONFASTING 5. Stage 3 chronic kidney disease, unspecified whether stage 3a or 3b CKD (HCC) - ICD9: 585.3, ICD10: N18.30 Monitor. 6. Screening for AAA (abdominal aortic aneurysm) - ICD9: V81.2, ICD10: Z13.6 - US SCREENING FOR AAA 7. Viral respiratory infection - ICD9: 079.99, ICD10: J98.8, B97.89 - Discussed viral etiology and rationale for treatment. - Symptomatic treatment with prn analgesia - Supportive care with fluids and rest Chema Bashir MD * Chema Bashir MD - 05/20/2023 3:25 PM EST Estela Palumbo is a 67 year old male here for a Medicare wellness visit. Medicare Health Risk Assessment General Health Good Exercise: Minutes/Day 0 min Exercise: Days/Week 0 days Alcohol: Daily Use Never Alcohol: Drinks/Day Patient does not drink Alcohol: 6 or more drinks Never Feel off balance No Concerns: Teeth/Dentures No Concerns: Sexual function No Troubled by feelings None of the above Frequency: Eating healthy diet Nearly every day ADLs requiring help None of the above Safety precautions in home/vehicle Yes Smoke, vape, chews tobacco No Difficulty hearing No Difficulty seeing No Current Providers Specialists: I have reviewed specialist-related care of the patient in the medical record. Current care team: Patient Care Team: Chema Bashir MD as PCP - General (Internal Medicine) Outside specialists seen: [facility]. Medical/Family history review Reviewed and updated problem list, medical/surgical/family/social history, medications, and allergies. Opioid use review Opioid Medications (last 90 days) Some values may be hidden. Unless noted otherwise, only the newest values recorded on each date aredisplayed. Opioid Medications No data to display. Depression screening Depression Screening PHQ-2 Score PHQ-9 Score 10/14/2022 0 - Depression screening tool completed and reviewed. Based on score and interview, patient is not at risk for depression. Screening tool discussed with patient, and I recommended no further interventionat this time. Cognitive screening Mini Cog Score: 5 Cognitive screening reviewed and no further action needed (score 3-5) Functional Observation Was the patient's Timed Up & Go test unsteady or ? 12 seconds? No Advance Care Planning Patient did not wish or was not able to name a surrogate decision maker or provide an advance care plan Measurements BP 143/89 Pulse 111 Temp (Src) 98.1 (Temporal) Resp 18 Wt 198 lb (89.8kg) Additional screenings: Vision Screening Right eye - Without correction: With correction: 20/25 Left eye - Without correction: With correction: 20/25 Both eyes - Without correction: With correction: 20/20 Assessment/Plan Medicare annual wellness visit, subsequent (Z00.00) - Counseled on healthy diet and regular exercise - Fall avoidance information provided - Personalized prevention plan provided - Discussed need for and benefit of weight loss. BMI 28.21 kg/(m^2) [facility] Miscellaneous Notes* Telephone Encounter - Linda Arita - 04/24/2023 1:36 PM EST Patient has been identified by name and date of : Yes, Provider Dr. Mckinney Date 04-24-23 Time 1:37 pm Spouse phones for refill(s): Requested Prescriptions Pending Prescriptions Disp Refills amLODIPine (NORVASC) 10 mg tablet 90 tablet 3 Sig: Take 1 tablet by mouth once daily. Date of last office visit in primary care: 11/25/2022 Date of next office visit in primary care: 05/20/2023 Please advise. Thank you. Linda Lorenzo. [facility] Miscellaneous Notes* Telephone Encounter - Misty Mc - 03/05/2023 12:54 PM EST Patient has been identified by name and date of : Yes Requested Prescriptions Pending Prescriptions Disp Refills insulin glargine (LANTUS SOLOSTAR U-100 INSULIN) 100 unit/mL (3 mL) 5 Each 5 Si units subq at bedtime Patient's spouse calling today and states that patient now takes 26 units of the medication. RX INSTRUCTIONS: Patient aware RX will be sent to pharmacy. No need to notify patient. Misty Mc [facility] History of Present illness Narrative* Daniela Lord MA - 01/29/2023 12:08 PM EST POPULATION HEALTH NAVIGATION OUTREACH Action/KAVITHAI LVM NO MYCHART FOLLOW UP around 02-24-24 Advance Directive Discussion due on 03/23/2022 HbA1C due on 01/14/2023 Patient Identified by Name and : NO Outreach Outcome/Action Unable to reach patient: Left message Did you use a PCP flex slot to schedule this appointment? N/A Reason for Outreach Care Gap or Scheduling/Wellness visits Payer: Payor: MEDICARE / Plan: MEDICARE A AND B / Product Type: Medicare / Care Gap Reviewed:: Follow-up appointment HBA1C Reminder: Reminder note to check Health Maintenance for items below Health Maintenance items due: Abdominal Aortic Aneurysm Screening Never done Shingrix Vaccine(1 of 2) Never done Hepatitis B Vaccine(1 of 3 - Risk 3-dose series) Never done RSV Vaccine(1 - 1-dose 60+ series) Never done Advance Directive Discussion due on 03/23/2022 HbA1C due on 01/14/2023 Urine Albumin:Creatinine Ratio due on 01/07/2023 Navigation Signature: Daniela Lord MA January 29, 2023 12:08 PM [facility] History of Present illness Narrative* 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 His visit today is for follow-up. Patient was last seen for this approximately 6 weeks ago Medication changes: Yes Norvasc increased to 10 mg daily Taking all medications as prescribed: Yes Side effects: No Home BP's: No Denies: headache, chest pain, palpitations, dyspnea, and peripheral edema. Last 4 Encounter BP Readings: Date: BP: 11/25/2022 132/70 10/14/2022 140/83 04/17/2022 136/83 01/07/2022 148/84 Last 3 Encounter Wt Readings: Date: Wt: 11/25/2022 87.1 kg (192 lb) 10/14/2022 86.2 kg (190 lb) 04/17/2022 82.6 kg (182 lb) Diabetes: HgbA1c 8.0. admits to poor diet and not getting enough exercise. Home blood sugar readings: fasting in the 90's, bedtime in the 180's on average. Hypoglycemia: No He is compliant with medication(s) and is tolerating med(s) without any side effects. Hemoglobin A1C (%) Date Value 10/14/2022 8.0 04/16/2022 7.5 08/14/2020 7.4 12/12/2019 7.6 REVIEW OF SYSTEMS See HPI PAST MEDICAL HISTORY Diagnosis Date Calculus of kidney 09/14/2007 CKD (chronic kidney disease) stage 3, GFR 30-59 ml/min ([facility]) 01/07/2019 Crush injury lower leg 1997 left leg, left foot drop DIABETES MELLITUS TYPE II UNCONTR UNCOMPL 07/30/2007 dx 2003 HYPERLIPIDEMIA NEC/NOS 07/31/2007 HYPERTENSION NOS 07/31/2007 Left sided colitis (HCC) 10/16/2015 Medically noncompliant 10/15/2010 OBESITY NOS 07/31/2007 Tobacco use disorder 04/07/2008 PAST SURGICAL HISTORY Procedure Laterality Date GLOBAL ESWL KIDNEY 2008 PAST SURGICAL HISTORY OF 1996 ORIF, crush injury, left tibia fibula ALLERGIES Keflex [Cephalexin] MEDICATIONS lisinopril (ZESTRIL) 40 mg tablet Take 1 tablet by mouth once daily. glipiZIDE (GLUCOTROL XL) 10mg 24 hr tablet Take 1 tablet by mouth once daily. rosuvastatin (CRESTOR) 10 mg tablet Take 1 tablet by mouth daily at bedtime. amLODIPine (NORVASC) 10 mg tablet Take 1 tablet by mouth once daily. insulin glargine (LANTUS SOLOSTAR U-100 INSULIN) 100 unit/mL (3 mL) 22 units subq at bedtime blood sugar diagnostic (BLOOD GLUCOSE TEST) test strip Test 2 times daily, Insulin Dep? Yes E11.9 DM 2 insulin needles, DISPOSABLE, (PEN NEEDLE) 31 gauge x 5/16 Use one needle per dose. 1 per day. Blood-Glucose Meter (FREESTYLE LITE METER) monitoring kit Use to check blood sugars twice daily FAMILY HISTORY Problem Relation Age of Onset Diabetes Mother insulin Cancer Father , lung cancer None Sister None Brother Social History Tobacco Use Smoking status: Former Packs/day: 0.00 Years: 20.00 Additional pack years: 0.00 Total pack years: 0.00 Types: Cigars, Cigarettes Quit date: 06/22/2015 Years since quittin.4 Smokeless tobacco: Former Types: Snuff Quit date: 08/15/2020 Tobacco comments: quit cigars, occasional snuff Vaping Use Vaping Use: Never used Substance Use Topics Alcohol use: No Drug use: No PHYSICAL EXAM BP 132/70 Pulse 84 Resp 16 Wt 87.1 kg (192 lb) General Appearance: well appearing, in no acute distress, alert Pysch: mood and affect broad and appropriate DATA REVIEWED: Most recent labs Component Latest Ref Rng & Units 10/14/2022 WBC 3.70 - 11.00 k/uL 7.34 RBC 4.20 - 6.00 m/uL 5.93 Hemoglobin 13.0 - 17.0 g/dL 15.7 Hematocrit 39.0 - 51.0 % 49.1 MCV 80.0 - 100.0 fL 82.8 MCH 26.0 - 34.0 pg 26.5 MCHC 30.5 - 36.0 g/dL 32.0 RDW-CV 11.5 - 15.0 % 13.5 Platelet Count 150 - 400 k/uL 257 MPV 9.0 - 12.7 fL 10.7 Absolute nRBC <0.01 k/uL <0.01 Glucose 74 - 99 mg/dL 141 (H) BUN 9 - 24 mg/dL 19 Creatinine 0.73 - 1.22 mg/dL 1.10 Sodium 136 - 144 mmol/L 138 Potassium 3.7 - 5.1 mmol/L 4.4 Chloride 97 - 105 mmol/L 104 CO2 22 - 30 mmol/L 21 (L) Anion Gap 9 - 18 mmol/L 13 Calcium 8.5 - 10.2 mg/dL 9.7 eGFR >=60 mL/min/1.73m 74 Total Cholesterol, Nonfasting <200 mg/dL 108 Triglycerides, Nonfasting <150 mg/dL 50 HDL Cholesterol, Nonfasting >39 mg/dL 42 LDL Cholesterol, Nonfasting <100 mg/dL 56 Non HDL Cholesterol, Nonfasting <130 mg/dL 66 VLDL Cholesterol, Nonfasting <30 mg/dL 10 Total Chol/HDL Ratio, Nonfasting <5.10 mg/dL 2.57 LDL/HDL Ratio, Nonfasting <2.54 mg/dL 1.33 Hemoglobin A1C 4.3 - 5.6 % 8.0 (H) Estimated Average Glucose mg/dL 183 ASSESSMENT/PLAN: 1. Type 2 diabetes mellitus with stage 3a chronic kidney disease, without long- term current use of insulin ([facility]) - ICD9: 250.40, 585.3, ICD10: E11.22, N18.31 (primary diagnosis) - Worsening control - discussed medication treatment options including GLP-1 and SGL2, patient declined any other medication or dose changes at this time. Continue current medications - Blood glucose monitoring on a twice daily schedule - Counseled on healthy diet and regular exercise - Follow up in 3 months, sooner should any other issues arise. 2. Essential hypertension - ICD9: 401.9, ICD10: I10 - Controlled - Continue current medications - Recommend home blood pressure monitoring, to bring results to next visit - Encouraged sodium restriction, DASH or Mediterranean diet 3. Stage 3 chronic kidney disease, unspecified whether stage 3a or 3b CKD (HCC) - ICD9: 585.3, ICD10: N18.30 - eGFR: 74 Stable - Albuminuria: 11 - Counseled on avoiding NSAIDs, adequate hydration - Counseled on low sodium diet - ACEi/ARB prescribed: lisinopril - SGLT2i prescribed: No, patient declined 4. Hyperlipidemia, unspecified hyperlipidemia type - ICD9: 272.4, ICD10: E78.5 - Controlled - Continue current medications 5. Encounter for immunization - ICD9: V03.89, ICD10: Z23 - INFLUENZA VACCINE, PRSV FREE, AGE 65+ YR, HIGH DOSE, QUADRIVALENT (FLUZONE HIGH-DOSE) Prescription instructions reviewed with patient as applicable. Potential red flag symptoms discussed with the patient. Reviewed appropriate action plan to take if red flag symptoms occur. Patient agreeable to treatment plan Jemima Mchugh APRN.CNP [facility] Evaluation note* Diagnosis Type 2 diabetes mellitus with stage 3a chronic kidney disease, without long-term current use of insulin (HCC)- Primary Essential hypertension Unspecified essential hypertension Stage 3 chronic kidney disease, unspecified whether stage 3a or 3b CKD (HCC) Hyperlipidemia, unspecified hyperlipidemia type Encounter for immunization Need for other specified prophylactic vaccination against single bacterial disease [facility] Miscellaneous Notes* Telephone Encounter - Aislinn Chung LPN - 10/02/2022 4:51 PM EDT Patient has been identified by name and date of : Yes, Patient phones for refill(s): Requested Prescriptions Pending Prescriptions Disp Refills insulin glargine (LANTUS SOLOSTAR U-100 INSULIN) 100 unit/mL (3 mL) 5 Each 5 Si units subq at bedtime Date of last office visit in primary care: 04/17/2022 6 month follow-up: 10/14/2022 Last 2 Encounter Wt Readings: Date: Wt: 04/17/2022 82.6 kg (182 lb) 01/07/2022 85.3 kg (188 lb) Previous labs/tests for medication: Diabetes: Hemoglobin A1C (%) Date Value 04/16/2022 7.5 01/07/2022 8.0 08/14/2020 7.4 12/12/2019 7.6 Please advise. Thank you. Aislinn Chung LPN * Telephone Encounter - [place] Jenny Lorenzo - 10/02/2022 4:43 PM EDT Patient has been identified by name and date of : Yes Requested Prescriptions Pending Prescriptions Disp Refills insulin glargine (LANTUS SOLOSTAR U-100 INSULIN) 100 unit/mL (3 mL) 5 Each 5 Si units subq at bedtime RX INSTRUCTIONS: Please send by tomorrow. On 01/10/22, this was a med update. Patient aware RX will be sent to pharmacy. No need to notify patient. Jenny Shaw Pss documented [facility] History of Present illness Narrative* Bella Mota MA - 06/16/2022 1:41 PM EDT POPULATION HEALTH NAVIGATION OUTREACH Action/FYI left message to call me back to discuss cologuard medicare wellness 10/13/22 Patient Identified by Name and : NO Outreach Outcome/Action Unable to reach patient: Left message Did you use a PCP flex slot to schedule this appointment? N/A Reason for Outreach Care Gap or Scheduling/Wellness visits Payer: Payor: MEDICARE / Plan: MEDICARE A AND B / Product Type: Medicare / Care Gap Reviewed:: Controlling Blood Pressure Colorectal Cancer Screening Reminder: Reminder note to check Health Maintenance for items below Health Maintenance items due: ABDOMINAL AORTIC ANEURYSM SCREENING Never done BP CONTROLLED (<130/80) Never done COLORECTAL CANCER SCREENING due on 01/30/2020 ADVANCE DIRECTIVE DISCUSSION due on 03/23/2022 DEPRESSION ASSESSMENT due on 03/23/2022 Navigation Signature: Bella Mota MA June 16, 2022 1:41 PM documented in this encounterR[facility]02-[facility]23 Miscellaneous Notes* Telephone Encounter - Rhonda Babin LPN - 05/01/2022 1:22 PM EST Phoned patient and updated him with results, recommendations and orders. Patient voiced understanding. * Telephone Encounter - Rhonda Babin LPN - 05/01/2022 1:17 PM EST ----- Message from Chema Bashir MD sent at 05/01/2022 12:53 PM EST ----- Chronic kidney disease III, Stable, but potassium elevating. Discontinue LISINOPRIL. Low potassium diet. Start LOSARTAN 50 mg daily. Increase amlodipine to 5 mg daily. Repeat BMP in 1 month. documented in this encounterR[facility]01[facility]23 History of Present illness Narrative* Chema Bashir MD - 04/17/2022 9:49 AM EST This note was created using Stream Tagsriter. Subjective Estela Palumbo is a 66 year old male. He was doing well. He acknowledged needing to improve on portion control and exercise. His weight was decreasing and A1C was improving. Hypertension still needed improvement. Review of Systems Constitutional: Negative. Respiratory: Negative. Cardiovascular: Negative. Neurological: Negative. ACTIVE PROBLEM LIST Type 2 Diabetes Mellitus With Stage 3 Chronic Kidney Disease, Without Long-Term Current Use of Insulin ([facility]) Essential Hypertension Hyperlipidemia Tobacco Use Disorder Benign Prostatic Hyperplasia With Lower Urinary Tract Symptoms Ckd (Chronic Kidney Disease) Stage 3, Gfr 30-59 Ml/Min ([facility]) Current Outpatient Medications Medication Sig insulin glargine (LANTUS SOLOSTAR U-100 INSULIN) 100 unit/mL (3 mL) 22 units subq at bedtime lisinopril (ZESTRIL, PRINIVIL) 40 mg tablet Take 1 tablet by mouth once daily. glipiZIDE (GLUCOTROL XL) 10mg 24 hr tablet Take 1 tablet by mouth once daily. rosuvastatin (CRESTOR) 10 mg tablet Take 1 tablet by mouth daily at bedtime. blood sugar diagnostic (BLOOD GLUCOSE TEST) test strip Test 2 times daily, Insulin Dep? Yes E11.9 DM 2 insulin needles, DISPOSABLE, (PEN NEEDLE) 31 gauge x 5/16 Use one needle per dose. 1 per day. Blood-Glucose Meter (FREESTYLE LITE METER) monitoring kit Use to check blood sugars twice daily No current facility-administered medications for this visit. Objective BP 136/83 (BP Site: Left Arm, BP Position: Sitting, BP Cuff Size: Large Adult) Pulse 84 Temp 36.2 C (97.2 F) (Temporal) Resp 20 Wt 82.6 kg (182 lb) Physical Exam Constitutional: Appearance: Normal appearance. Cardiovascular: Rate and Rhythm: Normal rate and regular rhythm. Heart sounds: No murmur heard. No gallop. Pulmonary: Effort: Pulmonary effort is normal. Breath sounds: Normal breath sounds. Musculoskeletal: Right lower leg: No edema. Left lower leg: No edema. Neurological: Mental Status: He is alert. Component Latest Ref Rng & Units 04/16/2022 Hemoglobin A1C 4.3 - 5.6 % 7.5 (H) Estimated Average Glucose mg/dL 169 Assessment and Plan 1. Type 2 diabetes mellitus with stage 3a chronic kidney disease, without long- term current use of insulin (HCC) - ICD9: 250.40, 585.3, ICD10: E11.22, N18.31 (primary diagnosis) improved control - Continue current medications - We discussed GLP1a. He preferred to improve on lifestyle change. 2. Essential hypertension - ICD9: 401.9, ICD10: I10 - suboptimal control - Continue current medication(s) - Add amlodipine (Norvasc) - Reviewed risks of HTN and principles of treatment - Goal of BP <130/80 - AMLODIPINE 2.5 MG TABLET - AWV in 2 months with MEMBER [employer]. 3. Hyperlipidemia, unspecified hyperlipidemia type - ICD9: 272.4, ICD10: E78.5 - good control - Continue current medication. Chema Bashir MD documented in [facility] encounter[facility]01[facility] Evaluation note* Diagnosis Type 2 diabetes mellitus with stage 3a chronic kidney disease, without long-term current use of insulin (HCC)- Primary Essential hypertension Unspecified essential hypertension Hyperlipidemia, unspecified hyperlipidemia type [facility]* Diagnosis Type 2 diabetes mellitus with stage 3 chronic kidney disease, without long-term current use of insulin, unspecified whether stage 3a or 3b CKD (HCC)- Primary [facility] Miscellaneous Notes* Telephone Encounter - Mary Lynn RN - 04/15/2022 4:23 PM EST Pts called in to see if Pt needed to have labs drawn before 04/17 appointment with provider. A1C was up and last done in December. Pt wants to come in the morning to get them done. documented in this encounterR[facility]01-23-[facility]23 History of Present illness Narrative* Shannon Beebe, OD - 04/14/2022 1:19 PM EST 1. Type 2 diabetes mellitus without retinopathy (HCC) Risk of diabetic changes and vision loss can be minimized by tight control of blood sugar, blood pressure, and cholesterol levels. Educated patient to continue care with primary care doctor and/or cop examiner to maintain optimum levels as they are important to avoid ocular complications. Encouraged patient to call the office immediately with any changes to vision or visual concerns. Advised to not wait until the next scheduled exam. 2. Combined forms of age-related cataract of both eyes Mild-monitor 3. Peripheral corneal degeneration, bilateral Educated pt Possible early Salmann's? Recommended artificial tears twice daily and gel nightly 4. Regular astigmatism of both eyes 5. Presbyopia Finalized spec rx Follow-up in 1 year Shannon Beebe, OD April 14, 2022 1:19 PM documented in this encounterR[facility]01-23-[facility]23 Instructions* Patient Instructions* Shannon Beebe, OD - 04/14/2022 12:59 PM EST Use Systane Complete or Refresh Relieva 2-3 times daily Use Systane, Refresh or Blink gel nightly before bed in both eyes documented in this encounterR[facility]10-18-2022 History of Present illness Narrative* Jemima Mchugh, LOCKS TENDER.[employer]BER [employer] - 01/07/2022 2:03 PM EDT CC Patient presents with: 2 month follow up BP HPI Estela Palumbo is a 66 year old male who presents to the office for blood pressure. His visit today is for follow-up. Patient was last seen for this approximately 2 months ago. Medication changes: No Taking all medications as prescribed: Yes Side effects: No Home BP's: No Denies: headache, chest pain, palpitations, dyspnea, and peripheral edema. Last 4 Encounter BP Readings: Date: BP: 01/07/2022 168/86 10/01/2021 148/82 07/23/2021 150/86 03/13/2021 126/80 Last 3 Encounter Wt Readings: Date: Wt: 01/07/2022 85.3 kg (188 lb) 10/01/2021 83.5 kg (184 lb) 07/23/2021 88 kg (194 lb) REVIEW OF SYSTEMS See HPI PAST MEDICAL HISTORY Diagnosis Date Calculus of kidney 09/14/2007 CKD (chronic kidney disease) stage 3, GFR 30-59 ml/min ([facility]) 01/07/2019 Crush injury lower leg 1996 left leg, left foot drop DIABETES MELLITUS TYPE II UNCONTR UNCOMPL 07/30/2007 dx 2003 HYPERLIPIDEMIA NEC/NOS 07/31/2007 HYPERTENSION NOS 07/31/2007 Left sided colitis (HCC) 10/16/2015 Medically noncompliant 10/15/2010 OBESITY NOS 07/31/2007 Tobacco use disorder 04/07/2008 PAST SURGICAL HISTORY Procedure Laterality Date GLOBAL ESWL KIDNEY 2007 PAST SURGICAL HISTORY OF 1996 ORIF, crush injury, left tibia fibula ALLERGIES Keflex [Cephalexin] MEDICATIONS glipiZIDE (GLUCOTROL XL) 10mg 24 hr tablet Take 1 tablet by mouth once daily. rosuvastatin (CRESTOR) 10 mg tablet Take 1 tablet by mouth daily at bedtime. insulin glargine (LANTUS SOLOSTAR U-100 INSULIN) 100 unit/mL (3 mL) 19 units subq at bedtime lisinopril (ZESTRIL, PRINIVIL) 20 mg tablet Take 1 tablet by mouth once daily. blood sugar diagnostic (BLOOD GLUCOSE TEST) test strip Test 2 times daily, Insulin Dep? Yes E11.9 DM 2 insulin needles, DISPOSABLE, (PEN NEEDLE) 31 gauge x 5/16 Use one needle per dose. 1 per day. Blood-Glucose Meter (FREESTYLE LITE METER) monitoring kit Use to check blood sugars twice daily FAMILY HISTORY Problem Relation Age of Onset Diabetes Mother insulin Cancer Father , lung cancer None Sister None Brother Social History Tobacco Use Smoking status: Former Packs/day: 0.00 Years: 20.00 Pack years: 0.00 Types: Cigars, Cigarettes Quit date: 06/22/2015 Years since quittin.5 Smokeless tobacco: Former Types: Snuff Quit date: 08/15/2020 Tobacco comments: quit cigars, occasional snuff Vaping Use Vaping Use: Never used Substance Use Topics Alcohol use: No Drug use: No PHYSICAL EXAM BP 148/84 Pulse 96 Resp 18 Wt 85.3 kg (188 lb) General Appearance: well appearing, in no acute distress, alert Lungs: Lungs clear to auscultation. No wheezing, rhonchi, rales. Heart: RRR without murmur, gallop, or rubs. No ectopy DATA REVIEWED: Most recent labs ASSESSMENT/PLAN: 1. Essential hypertension - ICD9: 401.9, ICD10: I10 (primary diagnosis) - suboptimal control - Increase Lisinopril to 40 mg daily - Encouraged dietary sodium restriction/DASH diet - Recommended regular aerobic exercise. - Recommend home blood pressure monitoring, to bring results in on next visit - Recheck in 2 months, sooner should new symptoms or problems arise. - patient admits to drinking 6 cups of coffee a day. Recommend decreasing caffeine consumption, he is in agreement - Goal of BP <130/80 - COMP METABOLIC PANEL - LISINOPRIL 40 MG TABLET 2. Type 2 diabetes mellitus with stage 3 chronic kidney disease, without long- term current use of insulin, unspecified whether stage 3a or 3b CKD (HCC) - ICD9: 250.40, 585.3, ICD10: E11.22, N18.30 - ALBUMIN/CREAT RATIO RND UR - HGB A1C - CONSULT TO OPHTHALMOLOGY Prescription instructions reviewed with patient as applicable. Potential red flag symptoms discussed with the patient. Reviewed appropriate action plan to take if red flag symptoms occur. Patient agreeable to treatment plan Jemima Mchugh APRN.CNP [facility] Instructions* Patient Instructions* Jemima Mchugh APRN.CNP - 10/01/2021 10:00 AM EDT Bring you blood pressure monitor to your next appointment Labs due before next appointment [facility] History of Present illness Narrative* Jemima Mchugh APRN.CNP - 10/01/2021 9:51 AM EDT CC Patient presents with: 2 month follow up: blood pressure HPI Estela Palumbo is a 66 year old male who presents to the office for blood pressure. His visit today is for follow-up. Patient was last seen for this approximately 2 months ago. Medication changes: Yes Lisinopril increased to 20 mg daily Taking all medications as prescribed: Yes Side effects: No Home BP's: No Denies: headache, chest pain, palpitations, dyspnea and peripheral edema. Last 4 Encounter BP Readings: Date: BP: 10/01/2021 148/82 07/23/2021 150/86 03/13/2021 126/80 08/15/2020 134/80 Last 3 Encounter Wt Readings: Date: Wt: 10/01/2021 83.5 kg (184 lb) 07/23/2021 88 kg (194 lb) 03/13/2021 87.5 kg (193 lb) Diabetes: Home blood sugar readings: fasting average < 120, does not check any other times Hypoglycemia: No He is compliant with medication(s) and is tolerating med(s) without any side effects. Denies increased thirst, urinary frequency, nocturia, fatigue, unintentional weight loss, blurred vision, numbness, tingling or pain in extremities, ulcers or sores on feet Last Ophthalmology exam was over two years ago Patient's last HgA1C was Hemoglobin A1C (%) Date Value 07/22/2021 9.8 08/14/2020 7.4 12/12/2019 7.6 REVIEW OF SYSTEMS See HPI PAST MEDICAL HISTORY Diagnosis Date Calculus of kidney 09/14/2007 CKD (chronic kidney disease) stage 3, GFR 30-59 ml/min ([facility]) 01/07/2019 Crush injury lower leg 1996 left leg, left foot drop DIABETES MELLITUS TYPE II UNCONTR UNCOMPL 07/30/2007 dx 2003 HYPERLIPIDEMIA NEC/NOS 07/31/2007 HYPERTENSION NOS 07/31/2007 Left sided colitis (HCC) 10/16/2015 Medically noncompliant 10/15/2010 OBESITY NOS 07/31/2007 Tobacco use disorder 04/07/2008 PAST SURGICAL HISTORY Procedure Laterality Date GLOBAL ESWL KIDNEY 2007 PAST SURGICAL HISTORY OF 1996 ORIF, crush injury, left tibia fibula ALLERGIES Keflex [Cephalexin] MEDICATIONS glipiZIDE (GLUCOTROL XL) 10mg 24 hr tablet Take 1 tablet by mouth once daily. rosuvastatin (CRESTOR) 10 mg tablet Take 1 tablet by mouth daily at bedtime. insulin glargine (LANTUS SOLOSTAR U-100 INSULIN) 100 unit/mL (3 mL) 19 units subq at bedtime lisinopril (ZESTRIL, PRINIVIL) 20 mg tablet Take 1 tablet by mouth once daily. blood sugar diagnostic (BLOOD GLUCOSE TEST) test strip Test 2 times daily, Insulin Dep? Yes E11.9 DM 2 insulin needles, DISPOSABLE, (PEN NEEDLE) 31 gauge x /16 Use one needle per dose. 1 per day. Blood-Glucose Meter (FREESTYLE LITE METER) monitoring kit Use to check blood sugars twice daily FAMILY HISTORY Problem Relation Age of Onset Diabetes Mother insulin Cancer Father , lung cancer None Sister None Brother Social History Tobacco Use Smoking status: Former Smoker Packs/day: 0.00 Years: 20.00 Pack years: 0.00 Types: Cigars Quit date: 06/22/2015 Years since quittin.2 Smokeless tobacco: Former User Types: Snuff Quit date: 08/15/2020 Tobacco comment: quit cigars, occasional snuff Vaping Use Vaping Use: Never used Substance Use Topics Alcohol use: No Drug use: No PHYSICAL EXAM BP 148/82 Pulse 64 Resp 16 Wt 83.5 kg (184 lb) General Appearance: well appearing, in no acute distress, alert Lungs: Lungs clear to auscultation. No wheezing, rhonchi, rales. Heart: RRR without murmur, gallop, or rubs. No ectopy Feet:Shoes and socks removed, normal distal pulses, sensitive to 10 gm monofilament and vibratory perception normal DATA REVIEWED: Most recent labs ASSESSMENT/PLAN: 1. Essential hypertension - ICD9: 401.9, ICD10: I10 (primary diagnosis) - suboptimal control, patient attributes to white coat HTN. Recommend increasing Lisinopril to 40 mg daily however patient declined. Willing to start checking BP at home and follow-up in 2 months. Elly bring monitor with him for validation and most recent BP readings 2. Type 2 diabetes mellitus without complication, without long-term current use of insulin (HCC) - ICD9: 250.00, ICD10: E11.9 improved control per home blood sugar readings - Continue current medications - GLIPIZIDE ER 10 MG TABLET, EXTENDED RELEASE 24 HR - ALBUMIN/CREAT RATIO RND UR and HgbA1c today 3. Colon cancer screening - ICD9: V76.51, ICD10: Z12.11 - COLOGUARD 4. Encounter for immunization - ICD9: V03.89, ICD10: Z23 - PNEUMOCOCCAL VACCINE (PREVNAR 20) Prescription instructions reviewed with patient as applicable. Potential red flag symptoms discussed with the patient. Reviewed appropriate action plan to take if red flag symptoms occur. Patient agreeable to treatment plan Jemima Mchugh APRN.CNP [facility] History of Present illness Narrative* Daniela Lord MA - 06/18/2021 8:34 AM EDT POPULATION HEALTH NAVIGATION OUTREACH Action/FYI LVM Health Maintenance items due: ANNUAL MEDICARE WELLNESS EXAM BP CONTROLLED (<130/80) Never done DILATED RETINAL EXAM due on 02/20/2017 COLORECTAL CANCER SCREENING due on 01/30/2020 INFLUENZA(1) due on 11/21/2020 HBA1C due on 02/14/2021 ADVANCE DIRECTIVE DISCUSSION Never done Pt identified by name and : NO Outreach Outcome/Action Unable to reach patient: Left message Reason for Outreach Care Gap or Scheduling/Wellness visits Payer: Payor: MEDICARE / Plan: MEDICARE A AND B / Product Type: Medicare / Care Gap Reviewed:: Annual Wellness visit Controlling Blood Pressure Colorectal Cancer Screening Diabetic Eye Exam HBA1C Flu vaccine Reminder: Reminder note to check Health Maintenance for items below Health Maintenance items due: ABDOMINAL AORTIC ANEURYSM SCREENING Never done BP CONTROLLED (<130/80) Never done SHINGRIX VACCINE(1 of 2) Never done DILATED RETINAL EXAM due on 02/20/2017 COLORECTAL CANCER SCREENING due on 01/30/2020 PNEUMOVAX AGE 65 AND OVER WITH 5YR LOOKBACK(1) due on 06/18/2020 INFLUENZA(1) due on 11/21/2020 DIABETIC FOOT EXAM due on 12/20/2020 HBA1C due on 02/14/2021 ADVANCE DIRECTIVE DISCUSSION Never done Message Sent to Practice: No Navigation Signature: Daniela Lord MA June 18, 2021 8:34 AM documented in [facility] encounter[facility] History of Past illness Narrative* Problem Noted Date Resolved Date Left sided colitis 10/16/2015 02/02/2017 Medically noncompliant 10/15/2010 7 Calculus of kidney 09/14/2007 01/31/2010 Overview: ED for L sided abd pain in 08-28: admitted CT showed stone in the L ureter with hydronephrosis in 08-28 [facility] 09-27: pt s/p ESWL, rec dietary changes Pt needs 24 hour urine calcium excretion Obesity 07/31/2007 02/02/2017 documented as of this encounter (statuses as of 06/18/2021) [facility] of Past illness Narrative* Problem Noted Date Resolved Date Left sided colitis 10/16/2015 02/02/2017 Medically noncompliant 10/15/2010 7 Calculus of kidney 09/14/2007 01/31/2010 Overview: ED for L sided abd pain in 08-28: admitted CT showed stone in the L ureter with hydronephrosis in 08-28 [facility] 09-27: pt s/p ESWL, rec dietary changes Pt needs 24 hour urine calcium excretion Obesity 07/31/2007 02/02/2017 documented as of this encounter (statuses as of 10/01/2021) [facility] of Past illness Narrative* Problem Noted Date Resolved Date Left sided colitis 10/16/2015 02/02/2017 Medically noncompliant 10/15/2010 7 Calculus of kidney 09/14/2007 01/31/2010 Overview: ED for L sided abd pain in 08-28: admitted CT showed stone in the L ureter with hydronephrosis in 08-28 [facility] 7-08: pt s/p ESWL, rec dietary changes Pt needs 24 hour urine calcium excretion Obesity 07/31/2007 02/02/2017 documented as of this encounter (statuses as of 01/07/2022) [facility] illness Narrative* Problem Noted Date Resolved Date Left sided colitis 10/16/2015 02/02/2017 Medically noncompliant 10/15/2010 7 Calculus of kidney 09/14/2007 01/31/2010 Overview: ED for L sided abd pain in 08-28: admitted CT showed stone in the L ureter with hydronephrosis in 08-28 [facility] 7-08: pt s/p ESWL, rec dietary changes Pt needs 24 hour urine calcium excretion Obesity 07/31/2007 02/02/2017 documented as of this encounter (statuses as of 04/14/2022) [facility] Narrative* Problem Noted Date Resolved Date Left sided colitis 10/16/2015 02/02/2017 Medically noncompliant 10/15/2010 7 Calculus of kidney 09/14/2007 01/31/2010 Overview: ED for L sided abd pain in 08-28: admitted CT showed stone in the L ureter with hydronephrosis in 08-28 [facility] 7-08: pt s/p ESWL, rec dietary changes Pt needs 24 hour urine calcium excretion Obesity 07/31/2007 02/02/2017 documented as of this encounter (statuses as of 04/16/2022) [facility] Narrative* Problem Noted Date Resolved Date Left sided colitis 10/16/2015 02/02/2017 Medically noncompliant 10/15/2010 7 Calculus of kidney 09/14/2007 01/31/2010 Overview: ED for L sided abd pain in 08-28: admitted CT showed stone in the L ureter with hydronephrosis in 08-28 [facility] 7-08: pt s/p ESWL, rec dietary changes Pt needs 24 hour urine calcium excretion Obesity 07/31/2007 02/02/2017 documented as of this encounter (statuses as of 04/17/2022) [facility] Narrative* Problem Noted Date Resolved Date Left sided colitis 10/16/2015 02/02/2017 Medically noncompliant 10/15/2010 7 Calculus of kidney 09/14/2007 01/31/2010 Overview: ED for L sided abd pain in 08-28: admitted CT showed stone in the L ureter with hydronephrosis in 08-28 [facility] 7-08: pt s/p ESWL, rec dietary changes Pt needs 24 hour urine calcium excretion Obesity 07/31/2007 02/02/2017 documented as of this encounter (statuses as of 05/01/2022) [facility] Narrative* Problem Noted Date Resolved Date Left sided colitis 10/16/2015 02/02/2017 Medically noncompliant 10/15/2010 7 Calculus of kidney 09/14/2007 01/31/2010 Overview: ED for L sided abd pain in 08-28: admitted CT showed stone in the L ureter with hydronephrosis in 08-28 [facility] 7-08: pt s/p ESWL, rec dietary changes Pt needs 24 hour urine calcium excretion Obesity 07/31/2007 02/02/2017 documented as of this encounter (statuses as of 06/16/2022) [facility] Narrative* Problem Noted Date Diagnosed Date Resolved Date Left sided colitis 10/16/2015 7 Medically noncompliant 10/15/201002/02 Calculus of kidney 09/14/2007 0 Overview: ED for L sided abd pain in 08-28: admitted CT showed stone in the L ureter with hydronephrosis in 08-28 [facility] 7-08: pt s/p ESWL, rec dietary changes Pt needs 24 hour urine calcium excretion Obesity 07/31/2007 02/02/2017 documented as of this encounter (statuses as of 10/03/2022) [facility] Narrative* Problem Noted Date Diagnosed Date Resolved Date Left sided colitis 10/16/2015 7 Medically noncompliant 10/15/201002/02 Calculus of kidney 09/14/2007 0 Overview: ED for L sided abd pain in 08-28: admitted CT showed stone in the L ureter with hydronephrosis in 08-28 [facility] 7: pt s/p ESWL, rec dietary changes Pt needs 24 hour urine calcium excretion Obesity 07/31/2007 02/02/2017 documented as of this encounter (statuses as of 11/25/2022) [facility] Narrative* Problem Noted Date Diagnosed Date Resolved Date Left sided colitis 10/16/2015 7 Medically noncompliant 10/15/201002/02 Calculus of kidney 09/14/2007 0 Overview: ED for L sided abd pain in 08-28: admitted CT showed stone in the L ureter with hydronephrosis in 08-28 [facility] 7-08: pt s/p ESWL, rec dietary changes Pt needs 24 hour urine calcium excretion Obesity 07/31/2007 02/02/2017 documented as of this encounter (statuses as of 01/30/2023) [facility] illness Narrative* Problem Noted Date Diagnosed Date Resolved Date Left sided colitis 10/16/2015 7 Medically noncompliant 10/15/201002/02 Calculus of kidney 09/14/2007 0 Overview: ED for L sided abd pain in 08-28: admitted CT showed stone in the L ureter with hydronephrosis in 08-28 [facility] 7-: pt s/p ESWL, rec dietary changes Pt needs 24 hour urine calcium excretion Obesity 07/31/2007 02/02/2017 documented as of this encounter (statuses as of 03/06/2023) [facility] Narrative* Problem Noted Date Diagnosed Date Resolved Date Left sided colitis 10/16/2015 7 Medically noncompliant 10/15/201002/02 Calculus of kidney 09/14/2007 0 Overview: ED for L sided abd pain in 08-28: admitted CT showed stone in the L ureter with hydronephrosis in 08-28 [facility] 7-: pt s/p ESWL, rec dietary changes Pt needs 24 hour urine calcium excretion Obesity 07/31/2007 02/02/2017 documented as of this encounter (statuses as of 04/26/2023) [facility] Narrative* Problem Noted Date Diagnosed Date Resolved Date Left sided colitis 10/16/2015 7 Medically noncompliant 10/15/201002/02 Calculus of kidney 09/14/2007 0 Overview: ED for L sided abd pain in 08-28: admitted CT showed stone in the L ureter with hydronephrosis in 08-28 [facility] 7-: pt s/p ESWL, rec dietary changes Pt needs 24 hour urine calcium excretion Obesity 07/31/2007 02/02/2017 documented as of this encounter (statuses as of 05/21/2023) [facility] of [facility] illness Narrative* Problem Noted Date Diagnosed Date Resolved Date Left sided colitis 10/16/2015 7 Medically noncompliant 10/15/201002/02 Calculus of kidney 09/14/2007 0 Overview: ED for L sided abd pain in 08-28: admitted CT showed stone in the L ureter with hydronephrosis in 08-28 [facility] 09-27: pt s/p ESWL, rec dietary changes Pt needs 24 hour urine calcium excretion Obesity 07/31/2007 02/02/2017 documented as of this encounter (statuses as of 05/25/2023) [facility] Diagnosis Essential hypertension- Primary Unspecified essential hypertension Type 2 diabetes mellitus without complication, without long-term current use of insulin (HCC) Colon cancer screening Special screening for malignant neoplasms, colon Encounter for immunization Need for other specified prophylactic vaccination against single bacterial disease [facility]* Diagnosis Essential hypertension- Primary Unspecified essential hypertension Type 2 diabetes mellitus with stage 3 chronic kidney disease, without long-term current use of insulin, unspecified whether stage 3a or 3b CKD (HCC) [facility]* Diagnosis Type 2 diabetes mellitus without retinopathy (HCC)- Primary Type II or unspecified type diabetes mellitus without mention of complication, not stated as uncontrolled Combined forms of age-related cataract of both eyes Other and combined forms of senile cataract Peripheral corneal degeneration, bilateral Regular astigmatism of both eyes Regular astigmatism Presbyopia [facility] Diagnosis Essential hypertension Unspecified essential hypertension [facility]* Diagnosis Medicare annual wellness visit, subsequent- Primary Routine general medical examination at a health care facility Type 2 diabetes mellitus with stage 3a chronic kidney disease, without long-term current use of insulin (HCC) Essential hypertension Unspecified essential hypertension Hyperlipidemia, unspecified hyperlipidemia type Stage 3 chronic kidney disease, unspecified whether stage 3a or 3b CKD (HCC) Screening for AAA (abdominal aortic aneurysm) Screening for other and unspecified cardiovascular conditions Viral respiratory infection Unspecified viral infection, in conditions classified elsewhere and of unspecified site documented in this encounter [facility]* Diagnosis Stage 3 chronic kidney disease, unspecified whether stage 3a or 3b CKD (HCC)- Primary Type 2 diabetes mellitus with stage 3a chronic kidney disease, without long-term current use of insulin (HCC) Essential hypertension Unspecified essential hypertension Hyperlipidemia, unspecified hyperlipidemia type [facility]* Diagnosis Type 2 diabetes mellitus without complication, without long-term current use of insulin (HCC)- Primary Essential hypertension Unspecified essential hypertension Hyperlipidemia, unspecified hyperlipidemia type Adjustment disorder with mixed anxiety and depressed mood- Primary Essential hypertension Unspecified essential hypertension Need for influenza vaccination Need for prophylactic vaccination and inoculation against influenza Type 2 diabetes mellitus with stage 3a chronic kidney disease, without long-term current use of insulin (HCC) [facility] Diagnosis Type 2 diabetes mellitus without complication, without long-term current use of insulin (HCC)- Primary Essential hypertension Unspecified essential hypertension Hyperlipidemia, unspecified hyperlipidemia type Adjustment disorder with mixed anxiety and depressed mood [facility]* Diagnosis Type 2 diabetes mellitus without complication, without long-term current use of insulin (HCC)- Primary Essential hypertension Unspecified essential hypertension Hyperlipidemia, unspecified hyperlipidemia type Essential hypertension- Primary Unspecified essential hypertension Adjustment disorder with mixed anxiety and depressed mood Type 2 diabetes mellitus with stage 3a chronic kidney disease, without long-term current use of insulin (HCC) Hyperlipidemia, unspecified hyperlipidemia type Screening for prostate cancer Special screening for malignant neoplasm of prostate [facility] Diagnosis Type 2 diabetes mellitus without complication, without long-term current use of insulin (HCC)- Primary Essential hypertension Unspecified essential hypertension Hyperlipidemia, unspecified hyperlipidemia type Medicare annual wellness visit, subsequent- Primary Routine general medical examination at a [place] [facility] care facility Type 2 diabetes mellitus with stage 3a chronic kidney disease, without long-term current use of insulin (HCC) Essential hypertension Unspecified essential hypertension Hyperlipidemia, unspecified hyperlipidemia type Adjustment disorder with mixed anxiety and depressed mood documented in this encounter [facility]* Diagnosis Type 2 diabetes mellitus without complication, without long-term current use of insulin (HCC)- Primary Essential hypertension Unspecified essential hypertension Hyperlipidemia, unspecified hyperlipidemia type Essential hypertension Unspecified essential hypertension documented in this encounter [facility]* Diagnosis Type 2 diabetes mellitus without complication, without long-term current use of insulin (HCC)- Primary Essential hypertension Unspecified essential hypertension Hyperlipidemia, unspecified hyperlipidemia type Hyperlipidemia, unspecified hyperlipidemia type documented [facility] this encounter [facility] Advance Directives Documents on File Type Date Recorded 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 Advance Directive(s) Reason for Referral Specialty Diagnoses / Procedures Referred By Brian bonilla Referred To Contact Ophthalmology Diagnoses Type 2 diabetes mellitus with stage 3 chronic kidney disease, without long-term current use of insulin, unspecified whether stage 3a or 3b CKD (HCC) Procedures CONSULT TO OPHTHALMOLOGY OFFICE/OUTPATIENT NEW HIGH MDM 60-74 MINUTES Older, Jemima, LOCKS TENDER.MEMBER [employer] THE [employer] [address] [place] [address] Referral ID Status Reason Start Date Expiration Date Visits Requested Visits Authorized [id number] Authorized PCP Requested Referral 2 01/07/2023 1 1 Specialty Diagnoses / Procedures Referred By Brian bonilla Referred To Contact Ophthalmology Diagnoses Type 2 diabetes mellitus with stage 3a chronic kidney disease, without long-term current use of insulin (HCC) Procedures CONSULT TO OPHTHALMOLOGY OFFICE/OUTPATIENT [facility] 60 MINUTES Chema Bashir MD [address] [place] [address] Referral ID Status Reason Start Date Expiration Date Visits Requested Visits Authorized [id number] Authorized PCP Requested Referral 05/20/2023 05/19/2024 1 1 Specialty Diagnoses / Procedures Referred By Brian bonilla Referred To Contact US IMAGING Diagnoses Screening for AAA (abdominal aortic aneurysm) Procedures US SCREENING FOR AAA (2017) US ABDOMINAL AORTA REAL TIME SCREEN STUDY AAA Chmea Bashir MD [address] [place] [address] [place] [address] Referral ID Status Reason Start Date Expiration Date Visits Requested Visits Authorized [id number] Authorized Auto-Generat ed Referral 05/20/2023 06/18/2024 1 1 Medications Administered Section Active Administered Medications - up to 3 most recent administrations Medication Order MAR Action Action Date Dose Rate Site PHENYLephrine 2.5 % 1 Drop (AK-DILATE, MOHINDER-SYNEPHRINE) 1 Drop, BOTH EYES, DIRECTED, Starting on Thu04/14/22 at 1230, Until Thu04/15/22 at 0029, Administer for dilation PROTECT FROM LIGHT Given 04/14/2022 12:30 PM EST 1 Drop proparacaine 0.5 % 1 Drop (ALCAINE) 1 Drop, BOTH EYES, DIRECTED, Starting on Thu04/14/22 at 1230, Until Thu04/15/22 at 0029, Administer for pneumo tonometry, tonopen tonometry, or pachymetry. In the event of a proparacaine shortage, administer tetracaine 0.5% ophthalmic drops 1 drop in the left eye as directed for pneumo tonometry, tonopen tonometry, or pachymetry Given 04/14/2022 12:30 PM EST 1 Drop tropicamide 1 % 1 Drop (MYDRIACYL) 1 Drop, BOTH EYES, DIRECTED, Starting on Thu04/14/22 at 1230, Until Thu04/15/22 at 0029, Administer for dilation Given 04/14/2022 12:30 PM EST 1 Drop Summary Purpose Family History No Family History Records Found Additional Source Comments Source Comments (unrecognize d section and content) In the event this informatio n is protected by the Federal Confidentiality of Alcohol and Drug Abuse Patient Records regulations: The Federal rules restrict any use of the information to criminally investigate or prosecute any alcohol or drug abuse patient.[facility] the event this information is protected by the Federal Confidentiality of Alcohol and Drug Abuse Patient Records regulations: The Federal rules restrict any use of the information to criminally investigate or prosecute any alcohol or drug abuse patient.[facility] the event this information is protected by the Federal Confidentiality of Alcohol and Drug Abuse Patient Records regulations: The Federal rules restrict any use of the information to criminally investigate or prosecute any alcohol or drug abuse patient.[facility] the event this information is protected by the Federal Confidentiality of Alcohol and Drug Abuse Patient Records regulations: The Federal rules restrict any use of the information to criminally investigate or prosecute any alcohol or drug abuse patient.[facility] the event this information is protected by the Federal Confidentiality of Alcohol and Drug Abuse Patient Records regulations: The Federal rules restrict any use of the information to criminally investigate or prosecute any alcohol or drug abuse patient.[facility] the event this information is protected by the Federal Confidentiality of Alcohol and Drug Abuse Patient Records regulations: The Federal rules restrict any use of the information to criminally investigate or prosecute any alcohol or drug abuse patient.[facility] the event this information is protected by the Federal Confidentiality of Alcohol and Drug Abuse Patient Records regulations: The Federal rules restrict any use of the information to criminally investigate or prosecute any alcohol or drug abuse patient.[facility] the event this information is protected by the Federal Confidentiality of Alcohol and Drug Abuse Patient Records regulations: The Federal rules restrict any use of the information to criminally investigate or prosecute any alcohol or drug abuse patient.[facility] the event this information is protected by the Federal Confidentiality of Alcohol and Drug Abuse Patient Records regulations: The Federal rules restrict any use of the information to criminally investigate or prosecute any alcohol or drug abuse patient.[facility] the event this information is protected by the Federal Confidentiality of Alcohol and Drug Abuse Patient Records regulations: The Federal rules restrict any use of the information to criminally investigate or prosecute any alcohol or drug abuse patient.[facility] the event this information is protected by the Federal Confidentiality of Alcohol and Drug Abuse Patient Records regulations: The Federal rules restrict any use of the information to criminally investigate or prosecute any alcohol or drug abuse patient.[facility] the event this information is protected by the Federal Confidentiality of Alcohol and Drug Abuse Patient Records regulations: The Federal rules restrict any use of the information to criminally investigate or prosecute any alcohol or drug abuse patient.[facility] the event this information is protected by the Federal Confidentiality of Alcohol and Drug Abuse Patient Records regulations: The Federal rules restrict any use of the information to criminally investigate or prosecute any alcohol or drug abuse patient.[facility] the event this information is protected by the Federal Confidentiality of Alcohol and Drug Abuse Patient Records regulations: The Federal rules restrict any use of the information to criminally investigate or prosecute any alcohol or drug abuse patient.[facility] the event this information is protected by the Federal Confidentiality of Alcohol and Drug Abuse Patient Records regulations: The Federal rules restrict any use of the information to criminally investigate or prosecute any alcohol or drug abuse patient.[facility] the event this information is protected by the Federal Confidentiality of Alcohol and Drug Abuse Patient Records regulations: The Federal rules restrict any use of the information to criminally investigate or prosecute any alcohol or drug abuse patient.[facility] the event this information is protected by the Federal Confidentiality of Alcohol and Drug Abuse Patient Records regulations: The Federal rules restrict any use of the information to criminally investigate or prosecute any alcohol or drug abuse patient.[facility] HospitalIn the event this information is protected by the Federal Confidentiality of Alcohol and Drug Abuse Patient Records regulations: The Federal rules restrict any use of the information to criminally investigate or prosecute any alcohol or drug abuse patient.[facility] HospitalIn the event this information is protected by the Federal Confidentiality of Alcohol and Drug Abuse Patient Records regulations: The Federal rules restrict any use of the information to criminally investigate or prosecute any alcohol or drug abuse patient.[facility] HospitalIn the event this information is protected by the Federal Confidentiality of Alcohol and Drug Abuse Patient Records regulations: The Federal rules restrict any use of the information to criminally investigate or prosecute any alcohol or drug abuse patient.[facility]In the event this information is protected by the Federal Confidentiality of Alcohol and Drug Abuse Patient Records regulations: The Federal rules restrict any use of the information to criminally investigate or prosecute any alcohol or drug abuse patient.[facility] HospitalIn the event this information is protected by the Federal Confidentiality of Alcohol and Drug Abuse Patient Records regulations: The Federal rules restrict any use of the information to criminally investigate or prosecute any alcohol or drug abuse patient.[facility] Reason for Visit (unrecogniz ed section and content) Reason Onset Date Comments PHMA/Care Gap Outreach 06/18/2021 [facility] Reason Comments 2 month follow up blood pressure Reason Comments 2 month follow up BP Reason Comments Diabetes Blood sugar: 91A1c: 8.0 Specialty Diagnoses / Procedures Referred By Brian t Referred To Contact Ophthalmology Diagnoses Type 2 diabetes mellitus with stage 3 chronic kidney disease, without long-term current use of insulin, unspecified whether stage 3a or 3b CKD (HCC) Procedures CONSULT TO OPHTHALMOLOGY OFFICE/OUTPATIENT NEW HIGH MDM 60-74 MINUTES Older, DANIELA Onofre.[employer]BER [employer] [address] [place] [address] Referral ID Status Reason Start Date Expiration Date V isits Requested Visits Authorized [id number] Closed PCP Requested Referral 01/07/2022 01/07/2023 1 1 Reason Comments Lab Orders Reason Comments 2 month follow-up Reason Comments Results Orders Reason Onset Date Comments Population Health Navigation Outreach 06/16/2022 ACO Care Gaps Reason Onset Date Comments Refill Request 10/02/2022 LAST SENT MED UP DATE Reason Comments Follow Up Reason Onset Date Comments Population Health Navigation Outreach 01/29/2023 ACO CARE GAPS Reason Onset Date Comments Refill Request 03/05/2023 Reason Comments Refill Request Reason Comments Medicare Wellness Exam Reason Comments Results Reason Onset Date Comments F/U Diabetes 3 Month discuss anx iety and med refills needed Immunizations 11/20/2023 Flu vaccination Reason Comments F/U 3 Month Reason Comments Medicare Wellness Exam Reason Onset Date Comments Refill Request 10/13/2024 Care Teams (unrecognized sec tion and content) Signaling Project Engineer Relationship Specialty Start Date End Date Chema Bashir MD [address] [place], [place] [id number] PCP - General Internal Medicine 01/31/10 Mirta Santiago [facility] [address] [place], [place] [address] Pharmacist Pharmacy 01/11/19 Signaling Project Engineer Relationship Specialty Start Date End Date Chema Bashir MD [address] [place], [place] [id number] PCP - General Internal Medicine 01/31/10 Mirta Santiago [facility] [address] [place] [address] Pharmacist Pharmacy 01/11/19 Signaling Project Engineer Relationship Specialty Start Date End Date Chema Bashir MD [address] [place] [address] PCP - General Internal Medicine 01/31/10 Mirta Santiago, [facility] [address] [place] [address] Pharmacist Pharmacy 01/11/19 Signaling Project Engineer Relationship Specialty Start Date End Date Chema Bashir MD [address] [place] [address] PCP - General Internal Medicine 01/31/10 Mirta Santiago, [facility] [address] [place] [address] Pharmacist Pharmacy 01/11/19 Signaling Project Engineer Relationship Specialty Start Date End Date Chema Bashir MD [address] [place] [address] PCP - General Internal Medicine 01/31/10 Mirta Santiago, [facility] [address] [place] [address] Pharmacist Pharmacy 01/11/19 Signaling Project Engineer Relationship Specialty Start Date End Date Chema Bashir MD [address] [place] [address] PCP - General Internal Medicine 01/31/10 Mirta Satniago, [facility] [address] [place] [address] Pharmacist Pharmacy 01/11/19 Signaling Project Engineer Relationship Specialty Start Date End Date Chema Bashir MD [address] [place] [address] PCP - General Internal Medicine 01/31/10 Mirta Santiago, [facility] [address] [place] [address] Pharmacist Pharmacy 01/11/19 Signaling Project Engineer Relationship Specialty Start Date End Date Chema Bashir MD [address] [place] [address] PCP - General Internal Medicine 01/31/10 MckinleyMirta kirkpatrick, [facility] [address] [place] [address] Pharmacist Pharmacy 01/11/19 Signaling Project Engineer Relationship Specialty Start Date End Date Chema Bashir MD [address] [place] [address] PCP - General Internal Medicine 01/31/10 Mckinleykaya Mirta, [facility] [address] [place] [address] Pharmacist Pharmacy 01/11/19 Signaling Project Engineer Relationship Specialty Start Date End Date Chema Bashir MD [address] [place] [address] PCP - General Internal Medicine 01/31/10 MckinleyMirta kirkpatrick, [facility] [address] [place] [address] Pharmacist Pharmacy 01/11/19 Signaling Project Engineer Relationship Specialty Start Date End Date Chema Bashir MD [address] [place] [address] PCP - General Internal Medicine 01/31/10 Mirta Santiago, [facility] [address] [place] [address] Pharmacist Pharmacy 01/11/19 Signaling Project Engineer Relationship Specialty Start Date End Date Chema Bashir MD [address] [place] [address] PCP - General Internal Medicine 01/31/10 [facility] [address] [place] [address] Pharmacist Pharmacy 01/11/19 Signaling Project Engineer Relationship Specialty Start Date End Date Chema Bashir MD [address] [place] [address] PCP - General Internal Medicine 01/31/10 [facility] [address] [place] [address] Pharmacist Pharmacy 01/11/19 Signaling Project Engineer Relationship Specialty Start Date End Date Chema Bashir MD [address] [place] [address] PCP - General Internal Medicine 01/31/10 Signaling Project Engineer Relationship Specialty Start Date End Date Chema Bashir MD [address] [place] [address] PCP - General Internal Medicine 01/31/10 Signaling Project Engineer Relationship Specialty Start Date End Date Chema Bashir MD [address] [place] [address] PCP - General Internal Medicine 01/31/10 Signaling Project Engineer Relationship Specialty Start Date End Date Chema Bashir MD [address] [place] [address] PCP - General Internal Medicine 01/31/10 Jemima Ba, LOCKS TENDER.[employer]BER [employer] [address] [place] [address] Loss Prevention Lead Internal [facility] 02/29/24 Signaling Project Engineer Relationship Specialty Start Date End Date Chema Bashir MD [address] [place], [place] [address] PCP - General Internal Medicine 01/31/10 Jemima Ba, LOCKS TENDER.MEMBER [employer] [address] [place] [address] Loss Prevention Lead Internal [facility] 02/29/24 Signaling Project Engineer Relationship Specialty Start Date End Date Chema Bashir MD [address] [place], [place] [address] PCP - General Internal Medicine 01/31/10 Jemima Ba, LOCKS TENDER.MEMBER [employer] [address] [place] [address] [facility] Internal [facility] 02/29/24 (unrecognized sect ion and content) No Status Records Found INFORMATION SOURCE (unrecogn ized section and content) DATE CREATED AUTHOR 05/27/2024 [facility] FOR RECORDS PERTAINING TO PATIENTS WHO ARE OR HAVE BEEN ENROLLED IN A CHEMICAL DEPENDENCY/SUBSTANCEABUSE PROGRAM, SOME INFORMATION MAY BE OMITTED. This clinical summary was aggregated from multiple sources. Caution should be exercised in using it in the provision of clinical care. This summary normalizes information from multiple sources, and as a consequence, information in this document may materially change the coding, format and clinical context of patient data. In addition, data may be omitted in some cases. CLINICAL DECISIONS SHOULD BE BASED ON THE PRIMARY CLINICAL RECORDS. [employer] provides no warranty or guarantee of the accuracy or completeness of information in this document.
[2024-10-23 13:47] LABS: AST(SGOT) 18 U/L (<=37); Alanine Aminotransfer ALT/SGPT 13 U/L (<=46); Albumin, Serum 4.3 g/dL (3.4-4.8); Alkaline Phosphatase 71 U/L (40-129); Anion Gap 14 (5-15); BUN 36 mg/dL (4-19); BUN/Creat Ratio 21.5 RATIO (10-20); Calcium,Total 9.8 mg/dL (7.6-11.0); Carbon Dioxide 19.2 mmol/L (21.0-32.0); Chloride 107 mmol/L (98-108); Estimated Creatinine Clearance 42.60 ml/min (50-250); Globulin 3.1 g/dL (2.2-4.2); Glucose 166 mg/dL (70-99); Potassium 5.4 mmol/L (3.3-5.1)
[2024-10-23] MEDS: Piperacil/Tazobactam 3.375 GM in 0.9% Normal Saline (50mL MB+) 50 ML IV (14:52)
--- NOTE | 2024-10-23 15:17 | EKG12_ITS ---
Test Reason : PRE OP Blood Pressure : */* mmHG Vent. Rate : 65 BPM Atrial Rate : 65 BPM P-R Int : 160 ms QRS Dur : 86 ms QT Int : 396 ms P-R-T Axes : -7 -38 15 degrees QTcB Int : 411 ms Normal sinus rhythm Left axis deviation Abnormal ECG Confirmed by DEBORAH NICHOLSON MD ([id number]), editor continuity and script CHITO MATA ([id number]) on 10/24/2024 9:47:37 AM Referred By: Confirmed By: DEBORAH NICHOLSON MD
--- NOTE | 2024-10-23 15:31 | CASEMGMT ---
Care Management Face to Face with patient for initial transition planning/care coordination assessment in the ED.? This lyric writer introduced self and role at [facility]. Patient alert and oriented. Patient willing to participate in assessment and is able to answer all questions appropriately.? Care providers, pharmacy, and demographics verified. Patient?s was also present at the time of the assessment. Admitting Diagnosis: Appendicitis Other diagnosis history: Including but may not be limited to: Hypertension, Hyperlipidemia, Type 2 diabetes and GI bleed. PCP: Dr. Chema Suh Specialists: CAROL Ba: Gerontology Preferred [facility]acy: [facility] Insurance: Medicare, part A and B Prescription Benefit: Yes Living Will/HPOA: No and not interested at this time. Patient stated he and his will complete this at home together and will bring in a copy. LNOK: Patient?s , Simran and their 35-year-old son, Juve, also of [place]. Living Arrangements: Patient lives in a [id number] with his . There is 1 step leading in/out of the condo through the front door, without a handrail which patient stated he is able to navigate without difficulty. Patient denied any environmental barriers at this time. Transportation: Patient drives and denied any transportation barriers. DME: None HHC: Denied SNF/Rehab: Denied Community Resources: Denied Behavioral Health History: Denied Patient goals: Patient wishes to discharge home, denies need for home health care at this time. Patient denies any further needs or concerns at this time. Disposition Plan: admission to acute; RN CM/SW to follow for discharge planning needs that may arise. Autumn Mendez, GOLD BURNISHER, PROFESSOR OF KINESIOLOGY
--- OUTSIDE RECORDS SUMMARY | 2024-10-23 15:39 | XMS RPT_ITS | CCD ---
Author Organization [facility] Care Team Providers Care Sales Expert Home [employer] Name Role Phone Krysten MURILLO, Chema Ashford Primary Care Provider Jack Mirta ashford Unavailable Chema Bashir MD Primary Care Provider [phone] Mejia SUAREZ.CAROL, Jemima M Unavailable CHEMA BASHIR [...] [CEPHALEXIN] Drug Allergy 05-30-2016 Other: See Comments [facility] Medications Current Medications Medication Drug Class(es) Dates [...] disease, without long-term current use of insulin ([facility]) Take 1 tablet by mouth [...] CNOV Office Visit (INTMWS ) ESTELA PALUMBO ([id number]) 1955 M Date Time Provider Department 05/26/24 [...] PCP - General (Internal Medicine) Jemima Ba APRN.RAILROAD OPERATOR as Liquefaction Supervisor (Internal Medicine) Shannon Beebe OD Optometry. Outside [...] reviewed. - AAA screening not done. Schedule. Chema Bashir MD 05/26/2024 1:32 PM Signed Advance Directive Forms Advanced Directives Forms (British) FORMS: [email or web address]/[email or web address] syb-dyzkv-le-assistant attorney general.p- df INFORMATIONAL BROCHURE: [email or web address] /-/[email or web address]/informati- on/[email or web address]-[email or web address].ashx?l a=en Advance Directives (non-British) FORMS: [email or web address] [email or web address]-gndzebewl-[email or web address]/adv- ance-[email or web address]#forms-tab Please bring completed forms to your next appointment or email them to . Patient Resources How to Get Started Talking with Loved Ones about your Wishes at the End of Life [email or web address]/wp-[email or web address]/[email or web address]- xa-JvbamVnfqjrxNku-Jljcivt.p df How to Navigate Conversations with your Care Team around your Preferences [email or web address] MD 05/26/2024 1:52 PM Signed This note was created using [employer]. Subjective Estela Palumbo is a 68 year old male. He was doing well. Blood pressure is better back on lisinopril. Review of Systems Constitutional: Negative for fatigue. Respiratory: Negative for shortness of breath. Cardiovascular: Negative for chest pain. Neurological: Negative for dizziness. ACTIVE PROBLEM LIST Type 2 Diabetes Mellitus With Stage 3 Chronic Kidney Disease, Without Long-Term Current Use of Insulin ([facility]) Essential Hypertension Hyperlipidemia Tobacco Use Disorder Benign Prostatic Hyperplasia With Lower Urinary Tract Symptoms Ckd (Chronic Kidney Disease) Stage 3, Gfr 30-59 Ml/Min ([facility]) Adjustment Disorder With Mixed Anxiety and Depressed [...] (Temporal) Resp (more content not included)... Normal [facility] ALBUMIN/CREATININE RATIO, UR INEon 05-25-2024 Albumin Unsp time DL <= 20 mg/L (U) [Mass/Time] <12.0 Normal [facility] Comment on above: Order Comment: Speci men Type: BLOOD SPECIMEN [facility] Address: [address] [place] [address] Performed By: #### 2 4331-1 #### [facility] CLIA [id number] [address] STATES OF [facility] CLIA [id number] 1 [place] [address] [place] #### 25110-9 #### [facility] CLIA [id number] [address] Albumin/Creatinine (U) [Mass ratio] <29 Normal <30 [facility] Comment on above: Order Comment: Speci men Type: BLOOD SPECIMEN [facility] Address: [address] [place] [address] Result Comment: Adul t Male and Female [...] 2 4331-1 #### [facility] CLIA [id number] [address] STATES OF [facility] CLIA [id number] [address] [place] [address] [place] #### 90715-5 #### [facility] CLIA [id number] [address] [place] Creatinine (U) [Mass/Vol] 40.7 mg/dL Low 46.8-314.5 [facility] Comment on above: Order Comment: Speci men Type: BLOOD SPECIMEN [facility] Address: [address] [place] [address] Performed By: #### 2 4331-1 #### [facility] CLIA [id number] [address] STATES OF [facility] CLIA [id number] [address] [place] [address] [place] #### 55585-7 #### [facility] CLIA [id number] [address] CBC panel Auto (Bld)on 05-25 Erythrocyte distribution width (RBC) [Ratio] 13.3 % Normal 11.5-15.0 [facility] Comment on above: Order Comment: Speci men Type: BLOOD SPECIMEN [facility] Address: [address] [place] [address] Performed By: #### 2 4331-1 #### [facility] CLIA [id number] [address] [id number] [address] [place] [address] [place] #### 90900-2 #### [facility] CLIA [id number] [address] [place] Hematocrit (Bld) [Volume fraction] 46.4 % Normal 39.0-51.0 [facility] Comment on above: Order Comment: Speci men Type: BLOOD SPECIMEN [facility] Address: [address] [place] [address] Performed By: #### 2 4331-1 #### [facility] CLIA [id number] [address] STATES OF [facility] CLIA [id number] [address] [place] [address] OF [place] #### 42019-2 #### [facility] CLIA [id number] [address] [place] Hemoglobin (Bld) [Mass/Vol] 15.1 g/dL Normal 13.0-17.0 [facility] Comment on above: Order Comment: Speci men Type: BLOOD SPECIMEN [facility] Address: [address] [place] [address] Performed By: #### 2 4331-1 #### [facility] CLIA [id number] [address] CLIA [id number] [address] [place] [address] #### 56958-3 #### [facility] CLIA [id number] [address] MCH (RBC) [Entitic mass] 26.7 pg Normal 26.0-34.0 [facility] Comment on above: Order Comment: Speci men Type: BLOOD SPECIMEN [facility] Address: [address] [place] [address] Performed By: #### 2 4331-1 #### [facility] CLIA [id number] [address] CLIA [id number] [address] [place] [address] #### 75213-0 #### [facility] CLIA [id number] [address] MCHC (RBC) [Mass/Vol] 32.5 g/dL Normal 30.5-36.0 [facility] Comment on above: Order Comment: Speci men Type: BLOOD SPECIMEN [facility] Address: [address] [place] [address] Performed By: #### 2 4331-1 #### [facility] CLIA [id number] [address] OF [facility] CLIA [id number] [address] [place] [address] #### 76798-5 #### [facility] CLIA [id number] [address] [place] MCV (RBC) [Entitic vol] 82.1 fL Normal 80.0-100.0 [facility] Comment on above: Order Comment: Speci men Type: BLOOD SPECIMEN [facility] Address: [address] [place] [address] Performed By: #### 2 4331-1 #### [facility] CLIA [id number] 1 [place] [address] [place] [facility] CLIA [id number] [address] [place] [address] [place] #### 99379-2 #### [facility] CLIA [id number] 1 [place] [address] [place] Nucleated RBC (Bld) [#/Vol] 10*3/uL Normal <0.01 [facility] Comment on above: Order Comment: Speci men Type: BLOOD SPECIMEN [facility] Address: [address] [place] [address] Performed By: #### 2 4331-1 #### [facility] CLIA [id number] 1 [place] [address] [place] [facility] CLIA [id number] [address] [place] [address] [place] #### 48023-1 #### [facility] CLIA [id number] [address] [place] Platelet mean volume (Bld) [Entitic vol] 10.6 fL Normal 9.0-12.7 [facility] Comment on above: Order Comment: Speci men Type: BLOOD SPECIMEN [facility] Address: [address] [place] [address] Performed By: #### 2 4331-1 #### [facility] CLIA [id number] 1 [place] [address] [place] [facility] CLIA [id number] [address] [place] [address] [place] #### 49630-9 #### [facility] CLIA [id number] 1 [place] [address] [place] Platelets (Bld) [#/Vol] 296 10*3/uL Normal 150-400 [facility] Comment on above: Order Comment: Speci men Type: BLOOD SPECIMEN [facility] Address: [address] [place] [address] Performed By: #### 2 4331-1 #### [facility] CLIA [id number] 1 [place] [address] [place] [facility] CLIA [id number] [address] [place] [address] [place] #### 43628-1 #### [facility] CLIA [id number] 1 [place] [address] [place] RBC (Bld) [#/Vol] 5.65 10*6/uL Normal 4.20-6.00 [facility] Comment on above: Order Comment: Speci men Type: BLOOD SPECIMEN [facility] Address: [address] [place] [address] Performed By: #### 2 4331-1 #### [facility] CLIA [id number] 1 [place] [address] [place] [facility] CLIA [id number] [address] [place] [address] [place] #### 01323-8 #### [facility] CLIA [id number] 1 [place] [address] [place] WBC (Bld) [#/Vol] 9.69 10*3/uL Normal 3.70-11.00 [facility] Comment on above: Order Comment: Speci men Type: BLOOD SPECIMEN [facility] Address: [facility] [place] [address] Performed By: #### 2 4331-1 #### [facility] CLIA [id number] 1 [place] [address] [place] [facility] CLIA [id number] [address] [place] [address] #### 68134-3 #### [facility] CLIA [id number] [address] Comprehensive metabolic 2000 panelon 05-25-2024 Albumin [Mass/Vol] 4.5 g/dL Normal 3.9-4.9 [facility] Comment on above: Order Comment: Speci men Type: BLOOD SPECIMEN [facility] Address: [address] [place] [address] Performed By: #### 2 4331-1 #### [facility] CLIA [id number] [address] OF [facility] CLIA [id number] [address] [place] [address] OF [facility] #### 07480-4 #### [facility] CLIA [id number] [address] ALP [Catalytic activity/Vol] 69 U/L Normal 38-113 [facility] Comment on above: Order Comment: Speci men Type: BLOOD SPECIMEN [facility] Address: [address] [place] [address] Performed By: #### 2 4331-1 #### [facility] CLIA [id number] [address] OF [facility] CLIA [id number] [address] [place] [address] OF [facility] #### 63185-0 #### [facility] CLIA [id number] [address] ALT With P-5'-P [Catalytic activity/Vol] 18 U/L Normal 10-54 [facility] Comment on above: Order Comment: Speci men Type: BLOOD SPECIMEN [facility] Address: [address] [place] [address] Performed By: #### 2 4331-1 #### [facility] CLIA [id number] [address] [place] [facility] CLIA [id number] [address] [place] [address] [place] #### 37448-3 #### [facility] CLIA [id number] [address] [place] Anion gap [Moles/Vol] 13 mmol/L Normal 8-15 [facility] Comment on above: Order Comment: Speci men Type: BLOOD SPECIMEN [facility] Address: [address] [place] [address] Performed By: #### 2 4331-1 #### [facility] CLIA [id number] [address] [place] [facility] CLIA [id number] [address] [place] [address] [place] #### 09198-6 #### [facility] CLIA [id number] [address] [place] AST With P-5'-P [Catalytic activity/Vol] 22 U/L Normal 14-40 [facility] Comment on above: Order Comment: Speci men Type: BLOOD SPECIMEN [facility] Address: [address] [place] [address] Performed By: #### 2 4331-1 #### [facility] CLIA [id number] [address] [place] [facility] CLIA [id number] [address] [place] [address] [place] #### 28604-2 #### [facility] CLIA [id number] [address] [place] Bilirubin [Mass/Vol] 0.4 mg/dL Normal 0.2-1.3 [facility] Comment on above: Order Comment: Speci men Type: BLOOD SPECIMEN [facility] Address: [address] [place] [address] Performed By: #### 2 4331-1 #### [facility] CLIA [id number] [address] [place] [facility] CLIA [id number] [address] [place] [address] [place] #### 71858-1 #### [facility] CLIA [id number] 1 [place] [address] [place] Calcium [Mass/Vol] 10.0 mg/dL Normal 8.5-10.2 [facility] Comment on above: Order Comment: Speci men Type: BLOOD SPECIMEN [facility] Address: [address] [place] [address] Performed By: #### 2 4331-1 #### [facility] CLIA [id number] 1 [place] [address] [place] [facility] CLIA [id number] [address] [place] [address] [place] #### 80961-4 #### [facility] CLIA [id number] 1 [place] [address] [place] Chloride [Moles/Vol] 100 mmol/L Normal 98-107 [facility] Comment on above: Order Comment: Speci men Type: BLOOD SPECIMEN [facility] Address: [address] [place] [address] Performed By: #### 2 4331-1 #### [facility] CLIA [id number] 1 [place] [address] [place] [facility] CLIA [id number] [address] [place] [address] [place] #### 02150-8 #### [facility] CLIA [id number] 1 [place] [address] [place] CO2 [Moles/Vol] 24 mmol/L Normal 22-30 [facility] Comment on above: Order Comment: Speci men Type: BLOOD SPECIMEN [facility] Address: [address] [place] [address] Performed By: #### 2 4331-1 #### [facility] CLIA [id number] [address] CLIA [id number] [address] [place] [address] #### 72791-1 #### [facility] CLIA [id number] [address] Creatinine [Mass/Vol] 1.18 mg/dL Normal 0.73-1.22 [facility] Comment on above: Order Comment: David men Type: BLOOD SPECIMEN [facility] Address: [address] [place] [address] Performed By: #### 2 4331-1 #### [facility] CLIA [id number] [address] CLIA [id number] [address] [place] [address] #### 59596-5 #### [facility] CLIA [id number] [address] Creatinine and Glomerular filtration rate.predicted panel (S/P/Bld) 67 mL/min/1.73m??? Normal >=60 [facility] Comment on above: Order Comment: David pulido Type: BLOOD SPECIMEN [facility] Address: [address] [place] [address] Result Comment: Ashanti mated Glomerular Filtration Rate [...] 2 4331-1 #### [facility] CLIA [id number] [id number] [place] [address] [place] #### 98963-1 #### [facility] CLIA [id number] 1 [place] [address] [place] Glucose [Mass/Vol] 146 mg/dL High 74-99 [facility] Comment on above: Order Comment: Speci men Type: BLOOD SPECIMEN [facility] Address: [address] [place] [address] Result Comment: The [place] Diabetes Association (ADA) provides guidance for cutoff [...] Standards of Medical Care in Diabetes 2016, [place] Diabetes Association. Diabetes Care. 2016.39(Suppl 1). Performed By: #### 2 4331-1 #### [facility] CLIA [id number] [address] [id number] [address] [place] [address] OF [place] #### 83471-8 #### [facility] CLIA [id number] [address] [place] Potassium [Moles/Vol] 4.6 mmol/L Normal 3.7-5.1 [facility] Comment on above: Order Comment: Speci men Type: BLOOD SPECIMEN [facility] Address: [address] [place] [address] Performed By: #### 2 4331-1 #### [facility] CLIA [id number] [address] [place] [facility] CLIA [id number] [address] [place] [address] [place] #### 49344-0 #### [facility] CLIA [id number] [address] [place] Protein [Mass/Vol] 7.5 g/dL Normal 6.3-8.0 [facility] Comment on above: Order Comment: Speci men Type: BLOOD SPECIMEN [facility] Address: [address] [place] [address] Performed By: #### 2 4331-1 #### [facility] CLIA [id number] 1 [place] [address] [place] [facility] CLIA [id number] [address] [place] [address] [place] #### 84610-1 #### [facility] CLIA [id number] 1 [place] [address] [place] Sodium [Moles/Vol] 137 mmol/L Normal 136-144 [facility] Comment on above: Order Comment: Speci men Type: BLOOD SPECIMEN [facility] Address: [address] [place] [address] Performed By: #### 2 4331-1 #### [facility] CLIA [id number] 1 [place] [address] [place] [facility] CLIA [id number] [address] [place] [address] [place] #### 61385-0 #### [facility] CLIA [id number] 1 [place] [address] [place] Urea nitrogen [Mass/Vol] 15 mg/dL Normal 9-24 [facility] Comment on above: Order Comment: Speci men Type: BLOOD SPECIMEN [facility] Address: [address] [place] [address] Performed By: #### 2 4331-1 #### [facility] CLIA [id number] [address] CLIA [id number] [address] [place] [address] #### 97807-8 #### [facility] CLIA [id number] [address] HbA1c (Bld)on 05-25-2024 Average glucose Estimated from glycated hemoglobin (Bld) [Mass/Vol] 174 mg/dL Normal [facility] Comment on above: Order Comment: Speci men Type: BLOOD SPECIMEN [facility] Address: [address] [place] [address] Result Comment: eAG: (Estimated average glucose) is a calculated value from HgbA1c and is termite control service representative of the average blood glucose level in the last 2-3 month period. Performed By: #### 2 4331-1 #### [facility] CLIA [id number] [address] STATES [facility] [id number] [address] [place] [address] [place] #### 67469-4 #### [facility] CLIA [id number] [address] STATES [facility] HbA1c (Bld) [Mass fraction] 7.7 % High 4.3-5.6 [facility] Comment on above: Order Comment: Edithi men Type: BLOOD SPECIMEN [facility] Address: [address] [place] [address] Result Comment: Amer [place] Diabetes Association guidelines indicate that patients with HgbA1c in the range 5.7-6.4% are at increased risk for development of diabetes, and intervention by lifestyle modification may be beneficial. HgbA1c greater or equal to 6.5% is considered diagnostic of diabetes. Performed By: #### 2 4331-1 #### [facility] CLIA [id number] [address] OF [facility] CLIA [id number] [address] [place] [address] [place] #### 24592-9 #### [facility] CLIA [id number] [address] [place] Lipid 1996 panelon 5 Cholesterol [Mass/Vol] 106 mg/dL Normal <200 [facility] Comment on above: Order Comment: Speci men Type: BLOOD SPECIMEN [facility] Address: [address] [place] [address] Result Comment: <200 mg/dL, Desirable 200-239 mg/dL, Borderline high >239 mg/dL, High Performed By: #### 2 4331-1 #### [facility] CLIA [id number] [address] STATES OF [facility] CLIA [id number] [address] [place] [address] [place] #### 15980-1 #### [facility] CLIA [id number] [address] STATES [facility] Cholesterol in HDL [Mass/Vol] 42 mg/dL Normal >39 [facility] Comment on above: Order Comment: Speci men Type: BLOOD SPECIMEN [facility] Address: [address] [place] [address] Result Comment: 40-5 9 mg/dL, Acceptable >59 mg/dL, High: Negative risk factor for coronary heart disease <40 mg/dL, Low: Positive risk factor for coronary heart disease Performed By: #### 2 4331-1 #### [facility] CLIA [id number] 1 [place] [address] [place] [facility] CLIA [id number] [address] [place] [address] [place] #### 46409-8 #### [facility] CLIA [id number] [address] Cholesterol in LDL [Mass/Vol] 53 mg/dL Normal <100 [facility] Comment on above: Order Comment: Edithi men Type: BLOOD SPECIMEN [facility] Address: [address] [place] [address] Result Comment: <100 mg/dL, Optimal 100-129 mg/dL, Near optimal/above optimal 130-159 mg/dL, Borderline high 160-189 mg/dL, High >189 mg/dL, Very high Secondary prevention optimal LDL Cholesterol levels are recommended to be < 70 mg/dL Performed By: #### 2 4331-1 #### [facility] CLIA [id number] [address] CLIA [id number] [address] [place] [address] #### 53679-6 #### [facility] CLIA [id number] [address] Cholesterol in LDL/Cholesterol in HDL [Mass ratio] 1.26 {ratio} Normal <2.54 [facility] Comment on above: Order Comment: Edithi men Type: BLOOD SPECIMEN [facility] Address: [address] [place] [address] Result Comment: Jeane connelly: 1. National Cholesterol Education Program ATP III Guideline At-A-Glance Quick Desk Reference: National Heart, Lung, and Blood [place]. National Institutes of Health. 2001: NIH Publication No. 01-3305. 2. An International Atherosclerosis Society position paper: global recommendations for the management of dyslipidemia: executive summary, Atherosclerosis. 2014: 232(2):410-413. Performed By: #### 2 4331-1 #### [facility] CLIA [id number] [address] STATES [facility] CLIA [id number] [address] [place] [address] #### 06327-5 #### [facility] CLIA [id number] [address] Cholesterol in VLDL [Mass/Vol] 11 mg/dL Normal <30 [facility] Comment on above: Order Comment: Speci men Type: BLOOD SPECIMEN [facility] Address: [address] [place] [address] Performed By: #### 2 4331-1 #### [facility] CLIA [id number] [address] CLIA [id number] [address] #### 89619-5 #### [facility] CLIA [id number] [address] Cholesterol non HDL [Mass/Vol] 64 mg/dL Normal <130 [facility] Comment on above: Order Comment: Speci men Type: BLOOD SPECIMEN [facility]ing Facility[facility] Address: [address] [place] [address] Result Comment: <130 mg/dL, Optimal 130-159 mg/dL, Near optimal/above optimal 160-189 mg/dL, Borderline high 190-219 mg/dL, High >219 mg/dL, Very high Secondary prevention optimal non HDL Cholesterol levels are recommended to be <100 mg/dL Performed By: #### 2 4331-1 #### [facility] CLIA [id number] [address] STATES OF [facility] CLIA [id number] [address] [place] [address] #### 62831-5 #### [facility] CLIA [id number] [address] Cholesterol.total/ Cholesterol in HDL [Mass ratio] 2.52 {ratio} Normal <5.10 [facility] Comment on above: Order Comment: Speci men Type: BLOOD SPECIMEN Ordering Facility: [facility] Address: [address] [place] [address] Performed By: #### 2 4331-1 #### [facility] CLIA [id number] [address] OF [facility] CLIA [id number] [address] [place] [address] [place] #### 00620-0 #### [facility] CLIA [id number] [address] STATES [place] FASTING TIME 12 hrs Normal [facility] Comment on above: Order Comment: Speci men Type: BLOOD SPECIMEN Ordering Facility[facility] Address: [address] [place] [address] Performed By: #### 2 4331-1 #### [facility] CLIA [id number] [address] [id number] [place] [address] [place] #### 97674-2 #### [facility] CLIA [id number] [address] [place] Triglyceride [Mass/Vol] 57 mg/dL Normal <150 [facility] Comment on above: Order Comment: Speci men Type: BLOOD SPECIMEN [facility]ing [facility] Address: [address] [place] [address] Result Comment: <150 mg/dL, Normal 150-199 mg/dL, Borderline high 200-499 mg/dL, High >499 mg/dL, Very high Performed By: #### 2 4331-1 #### [facility] CLIA [id number] 1 [place] [address] [place] [facility] CLIA [id number] [address] [place] [address] [place] #### 21829-9 #### [facility] CLIA [id number] [address] [place] PSA/PROSTATE SPECIFIC ANTIGE N SCREENINGon 05-25-2024 Prostate specific Ag [Mass/Vol] 1.12 ng/mL Normal <2.60 [facility] Comment on above: Order Comment: Speci men Type: BLOOD SPECIMEN Ordering Facility: [facility] Address: [address], [place] [address] Result Comment: Rajeev kraus PSA test methodology used is the Electrochemiluminescence Immunoassay by [employer]. Total PSA values by differing methodologies cannot be interchanged. Performed By: #### P SAS1 #### [facility] CLIA [id number] [address] CNOVon 04-14-2024 CNOV Office Visit (INTMWS ) ESTELA PALUMBO ([id number]) 1955 M Date Time Provider Department 04/14/24 3:40 PM CHEMA BASHIR INTMWS During your visit today, we recorded the following information about you: Pulse Blood pressure Weight 83/minute 152/80 84.9 kg Chema Bashir MD 04/14/2024 4:43 PM Signed This note was created using S² Developmentriter. Subjective Estela Palumbo is a 68 year [...] Disease, Without Long-Term Current Use of Insulin ([facility]) Essential Hypertension Hyperlipidemia Tobacco Use Disorder Benign Prostatic Hyperplasia With Lower Urinary Tract Symptoms Ckd (Chronic Kidney Disease) Stage 3, Gfr 30-59 Ml/Min ([facility]) Adjustment Disorder With Mixed Anxiety and Depressed [...] current use (more content not included)... Normal [facility] Basic metabolic 2000 panelon 11-20-2023 Anion gap [Moles/Vol] 13 mmol/L Normal 8-15 [facility] Comment on above: Order Comment: Speci men Type: BLOOD SPECIMEN [facility]ing [facility] Address: [address] [place] [address] Performed By: #### 2 4331-1 #### [facility] CLIA [id number] 1 [place] [address] [place] [facility] CLIA [id number] [address] [place] [address] [place] #### 84064-4 #### [facility] CLIA [id number] 1 [place] [address] [place] Calcium [Mass/Vol] 9.8 mg/dL Normal 8.5-10.2 [facility] Comment on above: Order Comment: Speci men Type: BLOOD SPECIMEN Ordering Facility[facility] Address: [address] [place] [address] Performed By: #### 2 4331-1 #### [facility] CLIA [id number] 1 [place] [address] [place] [facility] CLIA [id number] [place] [address] [place] #### 98947-2 #### [facility] CLIA [id number] 1 [place] [address] [place] Chloride [Moles/Vol] 102 mmol/L Normal 98-107 [facility] Comment on above: Order Comment: Speci men Type: BLOOD SPECIMEN [facility]ing [facility] Address: [address] [place] [address] Performed By: #### 2 4331-1 #### [facility] CLIA [id number] 1 [place] [address] [place] [facility] CLIA [id number] [place] [address] [place] #### 92520-7 #### [facility] CLIA [id number] 1 [place] [address] [place] CO2 [Moles/Vol] 25 mmol/L Normal 22-30 [facility] Comment on above: Order Comment: Speci men Type: BLOOD SPECIMEN Ordering [facility] Address: [address] [place] [address] Performed By: #### 2 4331-1 #### [facility] CLIA [id number] 1 [place] [address] [place] [facility] CLIA [id number] [address] [place] [address] [place] #### 46766-2 #### [facility] CLIA [id number] [address] STATES [facility] Creatinine [Mass/Vol] 1.13 mg/dL Normal 0.73-1.22 [facility] Comment on above: Order Comment: Speci men Type: BLOOD SPECIMEN [facility] Address: [address] [place] [address] Performed By: #### 2 4331-1 #### [facility] CLIA [id number] [address] STATES OF [facility] CLIA [id number] [address] [place] [address] #### 32774-0 #### [facility] CLIA [id number] [address] Creatinine and Glomerular filtration rate.predicted panel (S/P/Bld) 71 mL/min/1.73m??? Normal >=60 [facility] Comment on above: Order Comment: Speci men Type: BLOOD SPECIMEN [facility] Address: [address] [place] [address] Result Comment: Ashanti mated Glomerular Filtration Rate [...] 2 4331-1 #### [facility] CLIA [id number] [address] STATES OF [facility] CLIA [id number] [address] [place] [address] #### 70626-7 #### [facility] CLIA [id number] [address] [place] Glucose [Mass/Vol] 237 mg/dL High 74-99 [facility] Comment on above: Order Comment: David pulido Type: BLOOD SPECIMEN [facility] Address: [address] [place], [place] [address] Result Comment: The [place] Diabetes Association (ADA) provides guidance for cutoff [...] Standards of Medical Care in Diabetes 2016, [place] Diabetes Association. Diabetes Care. 2016.39(Suppl 1). Performed By: #### 2 4331-1 #### [facility] CLIA [id number] [address] [id number] [address] [place] [address] [place] #### 42325-9 #### [facility] CLIA [id number] [address] [place] Potassium [Moles/Vol] 4.6 mmol/L Normal 3.7-5.1 [facility] Comment on above: Order Comment: David pulido Type: BLOOD SPECIMEN Ordering Facility[facility] Address: [address] [place], [place] [address] Performed By: #### 2 4331-1 #### [facility] CLIA [id number] 1 [place] [address] [place] [id number] [place] [address] [place] #### 59925-6 #### [facility] CLIA [id number] 1 [place] [address] [place] Sodium [Moles/Vol] 140 mmol/L Normal 136-144 [facility] Comment on above: Order Comment: Speci men Type: BLOOD SPECIMEN Ordering [facility] Address: [address] [place] [address] Performed By: #### 2 4331-1 #### [facility] CLIA [id number] [address] CLIA [id number] [address] [place] [address] [place] #### 18651-4 #### [facility] CLIA [id number] [address] Urea nitrogen [Mass/Vol] 17 mg/dL Normal 9-24 [facility] Comment on above: Order Comment: Speci men Type: BLOOD SPECIMEN Ordering [facility] Address: [address] [place] [address] Performed By: #### 2 4331-1 #### [facility] CLIA [id number] [address] CLIA [id number] [address] [place] [address] OF [place] #### 20496-2 #### [facility] CLIA [id number] [address] CNOVon 11-20-2023 CNOV Office Visit (INTMWS ) ESTELA PALUMBO ([id number]) 1955 M Date Time Provider Department 11/20/23 11:40 AM CHEMA BASHIR INTMWS During your visit today, we recorded the following information about you: Temperature Pulse Respiration Blood pressure Normal [facility] HbA1c (Bld)on 11-20-2023 Average glucose Estimated from glycated hemoglobin (Bld) [Mass/Vol] 192 mg/dL Normal [facility] Comment on above: Order Comment: David pulido Type: BLOOD SPECIMEN Ordering [facility] Address: [address] [place] [address] Result Comment: eAG: (Estimated average glucose) is a calculated value from HgbA1c and is termite control service representative of the average blood glucose level in the last 2-3 month period. Performed By: #### 5 5454-3 #### [facility] CLIA [id number] [address] [place] [address] [place] HbA1c (Bld) [Mass fraction] 8.3 % High 4.3-5.6 [facility] Comment on above: Order Comment: David pulido Type: BLOOD SPECIMEN Ordering [facility] Address: [address] [place] [address] Result Comment: [place] Diabetes Association guidelines indicate that patients with HgbA1c in the range 5.7-6.4% are at increased risk for development of diabetes, and intervention by lifestyle modification may be beneficial. HgbA1c greater or equal to 6.5% is considered diagnostic of diabetes. Performed By: #### 5 5454-3 #### [facility] CLIA [id number] [address] [place] [address] [place] CNOVon 08-26-2023 CNOV Office Visit (INTMWS ) ESTELA PALUMBO ([id number]) 1955 M Date Time Provider Department 08/26/23 4:00 PM CHEMA BASHIR INTMWS During your visit today, we recorded the following information about you: Pulse Blood pressure Weight 102/minute 134/84 86.6 kg Chema Bashir MD 08/27/2023 12:15 AM Signed This note was created using [employer]. Subjective Patient presents with: Follow Up Estela [...] Disease, Without Long-Term Current Use of Insulin ([facility]) Essential Hypertension Hyperlipidemia Tobacco Use Disorder Benign Prostatic Hyperplasia With Lower Urinary Tract Symptoms Ckd (Chronic Kidney Disease) Stage 3, Gfr 30-59 Ml/Min ([facility]) Social History Tobacco Use Smoking status: Former [...] disease, without long-term current use of insulin ([facility]) - ICD9: 250.40, 585.3, ICD10: [...] disease, unspe (more content not included)... Normal [facility] HEMOGLOBIN A1C (POC)on 08-25 HbA1c (Bld) [Mass fraction] 7.7 % Abnormal 4.3 - 5.6 % [facility] Comment on above: Location:[address], [place], [address] Point of care (POC) Hemoglobin A1c (HGBA1C) [...] specific diabetes management situations: The POC device veneer department manager provides a normal range of 4.2% to 6.5% for the HGBA1C POC test. However, the [place] Diabetes Association guidelines indicate that patients with [...] Interpretation and review of laboratory results Abnormal [facility] ALBUMIN/CREAT RATIO RND URon 05-21-2023 Albumin DL <= 20 mg/L (U) [Mass/Vol] 249.8 mg/L [facility] Albumin/Creatinine (U) [Mass ratio] 65 mg/g High <30 mg/g [facility] Creatinine (U) [Mass/Vol] 381.8 mg/dL High 20.0 - 300.0 mg/dL [facility] Vital Signs Date Time Vital Sign Value Performing Clinician Scott saxena 05-26-2024 13:03-0500 Body height 179.3 cm Chema Bashir MD Work Phone: [facility] 05-26-2024 13:03-0500 Body mass index (BMI) [Ratio] 26.03 kg/m2 Chema Bashir MD Work Phone: [facility] 05-26-2024 13:03-0500 Body temperature 98.6 [degF] Chema Bashir MD Work Phone: [facility] 05-26-2024 13:03-0500 Body weight 83.7 kg Chema Bashir MD Work Phone: [facility] 05-26-2024 13:03-0500 Diastolic blood pressure 72 mm[Hg] Chema Bashir MD Work Phone: [facility] 05-26-2024 13:03-0500 Heart rate 72 /min Chema Bashir MD Work Phone: [facility] 05-26-2024 13:03-0500 Respiratory rate 16 /min Chema Bashir MD Work Phone: [facility] 05-26-2024 13:03-0500 Systolic blood pressure 130 mm[Hg] Chema Bashir MD Work Phone: [facility] 04-14-2024 16:12-0500 Diastolic blood pressure 80 mm[Hg] Chema Bashir MD Work Phone: [facility] 04-14-2024 16:12-0500 Heart rate 83 /min Chema Bashir MD Work Phone: [facility] 04-14-2024 16:12-0500 Systolic blood pressure 152 mm[Hg] Chema Bashir MD Work Phone: [facility] 04-14-2024 16:02-0500 Body mass index (BMI) [Ratio] 26.86 kg/m2 Chema Bashir MD Work Phone: [facility] 04-14-2024 16:02-0500 Body weight 84.9 kg Chema Bashir MD Work Phone: [facility] 11-20-2023 11:28-0400 Body height 177.8 cm Chema Bashir MD Work Phone: [facility] 11-20-2023 11:28040 Body mass index (BMI) [Ratio] 27.2 kg/m2 Chema Bashir MD Work Phone: [facility] 11-20-2023 11:28040 Body temperature 98.29 [degF] Chema Bashir MD Work Phone: [facility] 11-20-2023 11:28040 Body weight 86 kg Chema Bashir MD Work Phone: [facility] 11-20-2023 11:28040 Diastolic blood pressure 70 mm[Hg] Chema Bashir MD Work Phone: [facility] 11-20-2023 11:28-0400 Heart rate 95 /min Chema Bashir MD Work Phone: [facility] 11-20-2023 11:28-0400 Respiratory rate 12 /min Chema Bashir MD Work Phone: [facility] 11-20-2023 11:[id number] SaO2% (BldA) [Mass fraction] 95 % Chema Bashir MD Work Phone: [facility] 11-20-2023 11:28-0400 Systolic blood pressure 130 mm[Hg] Chema Bashir MD Work Phone: [facility] 08-26-2023 16:17-0400 Diastolic blood pressure 84 mm[Hg] Chema Bashir MD Work Phone: [facility] 08-26-2023 16:17-0400 Heart rate 102 /min Chema Bashir MD Work Phone: [facility] 08-26-2023 16:17-0400 Systolic blood pressure 134 mm[Hg] Chema Bashir MD Work Phone: [facility] 08-26-2023 16:04-0400 Body weight 86.64 kg Chema Bashir MD Work Phone: [facility] 05-20-2023 15:13-0500 Diastolic blood pressure 89 mm[Hg] Chema Bashir MD Work Phone: [facility] 05-20-2023 15:13-0500 Heart rate 111 /min Chema Bashir MD Work Phone: [facility] 05-20-2023 15:13-0500 Systolic blood pressure 143 mm[Hg] Chema Bashir MD Work Phone: [facility] 05-20-2023 14:58-0500 Body temperature 98.1 [degF] Chema Bashir MD Work Phone: [facility] 05-20-2023 14:58-0500 Body weight 89.81 kg Chema Bashir MD Work Phone: [facility] 05-20-2023 14:58-0500 Respiratory rate 18 /min Chema Bashir MD Work Phone: [facility] 11-25-2022 08:59-0400 Diastolic blood pressure 70 mm[Hg] Jemima Older TWISTING FRAME CHANGER.RAILROAD OPERATOR Work Phone: [facility] 11-25-2022 08:59-0400 Systolic blood pressure 132 mm[Hg] Jemima Older TWISTING FRAME CHANGER.RAILROAD OPERATOR Work Phone: [facility] 11-25-2022 08:45-0400 Body weight 87.09 kg Jemima Older TWISTING FRAME CHANGER.RAILROAD OPERATOR Work Phone: [facility] 11-25-2022 08:45-0400 Heart rate 84 /min Jemima Older TWISTING FRAME CHANGER.RAILROAD OPERATOR Work Phone: [facility] 11-25-2022 08:45-0400 Respiratory rate 16 /min Jemima Older TWISTING FRAME CHANGER.RAILROAD OPERATOR Work Phone: [facility] 04-17-2022 09:36-0500 Diastolic blood pressure 83 mm[Hg] Chema Bashir MD Work Phone: [facility] 04-17-2022 09:36-0500 Heart rate 84 /min Chema Bashir MD Work Phone: [facility] 04-17-2022 09:36-0500 Systolic blood pressure 136 mm[Hg] Chema Bashir MD Work Phone: [facility] 04-17-2022 09:34-0500 Body temperature 97.2 [degF] Chema Bashir MD Work Phone: [facility] 04-17-2022 09:34-0500 Body weight 82.56 kg Chema Bashir MD Work Phone: [facility] 04-17-2022 09:34-0500 Respiratory rate 20 /min Chema Bashir MD Work Phone: [facility] 01-07-2022 14:16-0400 Diastolic blood pressure 84 mm[Hg] Jemima Older TWISTING FRAME CHANGER.RAILROAD OPERATOR Work Phone: [facility] 01-07-2022 14:16-0400 Systolic blood pressure 148 mm[Hg] Jemima Older TWISTING FRAME CHANGER.RAILROAD OPERATOR Work Phone: [facility] 01-07-2022 13:58-0400 Body weight 85.28 kg Jemima Older TWISTING FRAME CHANGER.RAILROAD OPERATOR Work Phone: [facility] 01-07-2022 13:58-0400 Heart rate 96 /min Jemima Older TWISTING FRAME CHANGER.RAILROAD OPERATOR Work Phone: [facility] 01-07-2022 13:58-0400 Respiratory rate 18 /min Jemima Older TWISTING FRAME CHANGER.RAILROAD OPERATOR Work Phone: [facility] 10-01-2021 09:44-0400 Body weight 83.46 kg Jemima Older TWISTING FRAME CHANGER.RAILROAD OPERATOR Work Phone: [facility] 10-01-2021 09:44-0400 Diastolic blood pressure 82 mm[Hg] Jemima Older TWISTING FRAME CHANGER.RAILROAD OPERATOR Work Phone: [facility] 10-01-2021 09:44-0400 Heart rate 64 /min Jemima Older TWISTING FRAME CHANGER.RAILROAD OPERATOR Work Phone: [facility] 10-01-2021 09:44-0400 Respiratory rate 16 /min Jemima Older TWISTING FRAME CHANGER.RAILROAD OPERATOR Work Phone: [facility] 10-01-2021 09:44-0400 Systolic blood pressure 148 mm[Hg] Jemima Older TWISTING FRAME CHANGER.RAILROAD OPERATOR Work Phone: [facility] Encounters Encounter Date Encounter Type Care Provider Facility Start: 10-13-2024 End: 10-14-2024 Refill Chema Bashir MD Work Phone: [facility] Comment on above: Refill Request Start: 05-26-2024 End: 05-26-2024 ambulatory CHEMA BASHIR Facility:[facility] Start: 05-26-2024 End: 05-26-2024 Patient encounter procedure [...] Start: 05-25-2024 End: 05-25-2024 ambulatory CHEMA BASHIR Facility:[facility] Start: 04-14-2024 End: 04-14-2024 ambulatory CHEMA BASHIR Facility:[facility] Start: 04-14-2024 End: 04-14-2024 Office outpatient visit [...] Start: 11-20-2023 End: 11-20-2023 ambulatory CHEMA BASHIR Facility:[facility] Start: 11-20-2023 End: 11-20-2023 Office outpatient visit 25 minutes Chema Bashir MD Work Phone: [facility] Comment on above: Adjustment disorder with mixed anxiety and depressed mood (Primary Dx); Essential hypertension; Need for influenza vaccination; Type 2 diabetes mellitus with stage 3a chronic kidney disease, without long-term current use of insulin (HCC) Start: 08-26-2023 End: 08-26-2023 ambulatory CHEMA BASHIR Facility:[facility] Start: 08-26-2023 End: 08-26-2023 Patient encounter procedure [...] Chema ordaz MD Work Phone: [facility] [place] Comment on above: Results Start: 05-20-2023 End: [...] Chema demarco MD Work Phone: [facility] Comment on above: Refill Request Start: 03-05-2023 Refill Chema demarco MD Work Phone: [facility] Comment on above: Refill Request Start: 01-29-2023 ambulatory Daniela gannon MA [facility] [place] Comment on above: Population Health Na vigation [...] Chema demarco MD Work Phone: [facility] [place] Comment on above: Refill Request (LAST SENT MED UPDATE) Start: 06-16-2022 ambulatory Bella Casanova [facility] [place] Comment on above: Population Health Na vigation Outreach (/ACO Care Gaps) Start: 05-01-2022 Telephone encounter Chema ordaz MD Work Phone: [facility] Comment on above: Results; Orders Start: 04-17-2022 End: 04-17-2022 Patient encounter procedure Chema Bashir MD Work Phone: [facility] [place] Comment on above: Type 2 diabetes lucia itus with stage 3a chronic kidney disease, without long-term current use of insulin (HCC) (Primary Dx); Essential hypertension; Hyperlipidemia, unspecified hyperlipidemia type Start: 04-15-2022 Telephone encounter Chema ordaz MD Work Phone: [facility] Comment on above: Lab Orders Start: 04-14-2022 End: 04-14-2022 Patient encounter procedure Shannon Beebe OD Work Phone: Ophthalmology Comment on above: Type 2 diabetes lucia itus without retinopathy (HCC) (Primary Dx); Combined forms of age-related cataract of both eyes; Peripheral corneal degeneration, bilateral; Regular astigmatism of both eyes; Presbyopia Start: 01-07-2022 End: 01-07-2022 Patient encounter procedure Jemima Mchugh APRN.RAILROAD OPERATOR Work Phone: [facility] Comment on above: Essential hypertensi on (Primary Dx); Type 2 diabetes mellitus with stage 3 chronic kidney disease, without long-term current use of insulin, unspecified whether stage 3a or 3b CKD (HCC) Start: 10-01-2021 End: 10-01-2021 Patient encounter procedure Jemima Older TWISTING FRAME CHANGER.RAILROAD OPERATOR Work Phone: [facility] Comment on above: Essential hypertensi on (Primary Dx); Type 2 diabetes mellitus without complication, without long-term current use of insulin (HCC); Colon cancer screening; Encounter for immunization Start: 06-18-2021 ambulatory Daniela gannon MA [employer] [facility] Comment on above: PHMA/Care Gap Outrea ch (ACO LINDA PCSA) Procedures Date Procedure Procedure Detail Performing Clinician Start: 08-26-2023 Hemoglobin A1c/Hemoglobin.total in Blood Chema Bashir MD Work Phone: Start: 08-26-2023 Adult depression scr eening assessment Chema Bashir MD Work Phone: Start: 11-25-2022 INFLUENZA VACCINE, P RSV FREE, AGE 65+ YR, HIGH DOSE, QUADRIVALENT (FLUZONE HIGH-DOSE) Jemima Older TWISTING FRAME CHANGER.RAILROAD OPERATOR Work Phone: Start: 08-15-2020 Adult depression scr eening assessment Daniela Lord MA Plan of Treatment Date Care Activity Detail Author Start: 05-25-2029 Prostate specific antigen measurement Prostate Cancer Screening Discussion [facility] Start: 01-07-2029 Urine microalbumin profile [facility] Start: 11-28-2025 Cologuard (FIT-DNA) Cologuard (FIT-D NA) [facility] Start: 11-28-2025 Colorectal Cancer Screening Colorectal Cancer Screening [facility] Start: 11-28-2025 Screening for malign ant neoplasm of colon [facility] Start: 05-26-2025 Annual PCP Team Home Care Nurse celsa Disease Visit Annual PCP Team Chronic Disease Visit [facility] Start: 05-26-2025 Medicare Annual Wellness Visit Medicare Annual Wellness Visit [facility] Start: 05-25-2025 Creatinine measurement Serum Creatin ine [facility] Start: 05-25-2025 Hepatitis B screening Urine Albumin:Creatinine Ratio [facility] Start: 05-25-2025 Hepatitis B surface antibody level LDL Cholesterol [facility] Start: 04-14-2025 Annual PCP Team Home Care Nurse celsa Disease Visit Annual PCP Team Chronic Disease Visit [facility] Start: 11-28-2024 End: 11-28-2024 Patient encounter procedure 11/28/2024 12:40 PM EDT Office Visit Internal Medicine [facility] [address] [place] [address] Chema Bashir MD [address] [place] [address] 6 month follow-up [facility] Medicine [facility] Comment on above: 6 month follow-up Start: 11-25-2024 Hemoglobin A1c measurement HbA1C [facility] Start: 11-21-2024 Influenza vaccination Influenza Vacc ine (#1) [facility] Start: 11-19-2024 Annual PCP Team Home Care Nurse celsa Disease Visit Annual PCP Team Chronic Disease Visit [facility] Start: 11-19-2024 Creatinine measurement Serum Creatin ine [facility] Start: 11-19-2024 Diabetic foot examination Diabetic Foot Exam [facility] Start: 11-14-2024 End: 02-13-2025 Basic metabolic 2000 panel - Serum or Plasma BASIC METABOLIC PANEL Lab Routine Type 2 diabetes mellitus with stage 3a chronic kidney disease, without long-term current use of insulin (HCC) Expected: 11/14/2024, Expires: 02/13/2025 [facility] Work Phone: Comment on above: Expected: 11/14/2024 , Expires: 02/13/2025 Start: 11-14-2024 End: 02-13-2025 Hemoglobin A1c in Blood HEMOGLOBIN A1C Lab Routine Type 2 diabetes mellitus with stage 3a chronic kidney disease, without long-term current use of insulin (HCC) Expected: 11/14/2024, Expires: 02/13/2025 [facility] Comment on above: Expected: 11/14/2024 , Expires: 02/13/2025 Start: 11-14-2024 End: 02-13-2025 Microalbumin/Creatinine [Mass Ratio] in Urine ALBUMIN/CREATININE RATIO, URINE Lab Routine Type 2 diabetes mellitus with stage 3a chronic kidney disease, without long-term current use of insulin (HCC) Expected: 11/14/2024, Expires: 02/13/2025 [facility] Comment on above: Expected: 11/14/2024 , Expires: 02/13/2025 Start: 08-25-2024 Annual PCP Team Home Care Nurse celsa Disease Visit Annual PCP Team Chronic Disease Visit [facility] Start: 08-25-2024 Anxiety Screening Anxiety Screening [facility] Start: 08-25-2024 Depression Screening Depression Scre ening [facility] Start: 06-20-2024 End: 06-20-2024 Patient encounter procedure 06/20/2024 12:45 PM EDT Office Visit [facility] [address] [place] [address] Shannon Beebe, OD [address] [place] [address] Type 2 diabetes mellitus with stage 3a chronic kidney disease, without long-term current use of insulin (HCC) [E11.22, N18.31 Ophthalmology Comment on above: Type 2 diabetes lucia itus with stage 3a chronic kidney disease, without long-term current use of insulin (HCC) [E11.22, N18.31 Start: 06-15-2024 Covid-19 Vaccine ( season) Covid-19 Vaccine () [facility] Start: 06-06-2024 End: 06-06-2024 Patient encounter procedure 06/06/2024 1:00 PM EDT Appointment Radiology [address] [place] [address] Screening for AAA (abdominal aortic aneurysm) [Z13.6] Radiology Comment on above: Screening for AAA (a bdominal aortic aneurysm) [Z13.6] Start: 05-26-2024 End: 05-26-2024 Patient encounter procedure 05/26/2024 1:00 PM EST Office Visit Internal Medicine [facility] [address] [place] [address] Chema Bashir MD [address] [place] [address] annual Medicare wellness [facility] Comment on above: annual Medicare well ness Start: 05-20-2024 Annual PCP Team Home Care Nurse celsa Disease Visit Annual PCP Team Chronic Disease Visit [facility] Start: 05-20-2024 Creatinine measurement Serum Creatin ine [facility] Start: 05-20-2024 Hepatitis B screening Urine Albumin:Creatinine Ratio [facility] Start: 05-20-2024 Hepatitis B surface antibody level LDL Cholesterol [facility] Start: 05-15-2024 End: 08-14-2024 CBC panel - Blood by Automated count COMPLETE BLOOD COUNT Lab Routine Essential hypertension Expected: 05/15/2024, Expires: 08/14/2024 [facility] Work Phone: Comment on above: Expected: 05/15/2024 , Expires: 08/14/2024 Start: 05-15-2024 End: 08-14-2024 Comprehensive metabolic 2000 panel - Serum or Plasma COMPREHENSIVE METABOLIC PANEL Lab Routine Hyperlipidemia, unspecified hyperlipidemia type Expected: 05/15/2024, Expires: 08/14/2024 [facility] Comment on above: Expected: 05/15/2024 , Expires: 08/14/2024 Start: 05-15-2024 End: 08-14-2024 Hemoglobin A1c in Blood HEMOGLOBIN A1C Lab Routine Type 2 diabetes mellitus with stage 3a chronic kidney disease, without long-term current use of insulin (HCC) Expected: 05/15/2024, Expires: 08/14/2024 [facility] Comment on above: Expected: 05/15/2024 , Expires: 08/14/2024 Start: 05-15-2024 End: 08-14-2024 Lipid 1996 panel - Serum or Plasma LIPID PANEL BASIC Lab Routine Hyperlipidemia, unspecified hyperlipidemia type Expected: 05/15/2024, Expires: 08/14/2024 [facility] Comment on above: Expected: 05/15/2024 , Expires: 08/14/2024 Start: 05-15-2024 End: 08-14-2024 Microalbumin/Creatinine [Mass Ratio] in Urine ALBUMIN/CREATININE RATIO, URINE Lab Routine Type 2 diabetes mellitus with stage 3a chronic kidney disease, without long-term current use of insulin (HCC) Expected: 05/15/2024, Expires: 08/14/2024 [facility] Comment on above: Expected: 05/15/2024 , Expires: 08/14/2024 Start: 05-15-2024 End: 08-14-2024 PSA/PROSTATE SPECIFIC ANTIGEN SCREENING PSA/PROSTATE SPECIFIC ANTIGEN SCREENING Lab Routine Screening for prostate cancer Expected: 05/15/2024, Expires: 08/14/2024 [facility] Comment on above: Expected: 05/15/2024 , Expires: 08/14/2024 Start: 03-23-2024 Advance Directive Discussion Advance Directive Discussion [facility] Start: 02-25-2024 Hemoglobin A1c measurement HbA1C [facility] Start: 02-22-2024 End: 02-22-2024 Patient encounter procedure 02/22/2024 3:40 PM EST Office Visit Internal Medicine [place] [address] [place] [address] Chema Bashir MD [address] [place] [address] 3 Month follow up Internal Medicine [facility] Comment on above: 3 Month follow up Start: 02-20-2024 Hemoglobin A1c measurement HbA1C [facility] Start: 01-30-2024 PROSTATE CANCER SCREENING DISCUSSION PROSTATE CANCER SCREENING DISCUSSION [facility] Start: 01-30-2024 Prostate specific antigen measurement Prostate Cancer Screening Discussion [facility] Start: 11-26-2023 ANNUAL PCP TEAM CORPORATE ACCOUNT EXECUTIVE CELSA DISEASE VISIT ANNUAL PCP TEAM CHRONIC DISEASE VISIT [facility] Start: 11-26-2023 End: 02-25-2024 Basic metabolic 2000 panel - Serum or Plasma BASIC METABOLIC PANEL Lab Routine Type 2 diabetes mellitus with stage 3a chronic kidney disease, without long-term current use of insulin (HCC) Expected: 11/26/2023, Expires: 02/25/2024 [facility] Work Phone: Comment on above: Expected: 11/26/2023 , Expires: 02/25/2024 Start: 11-26-2023 BP CONTROLLED (<130/80) BP CONTROLLE D (<130/80) [facility] Start: 11-26-2023 End: 02-25-2024 Hemoglobin A1c in Blood HEMOGLOBIN A1C Lab Routine Type 2 diabetes mellitus with stage 3a chronic kidney disease, without long-term current use of insulin (HCC) Expected: 11/26/2023, Expires: 02/25/2024 [facility] Comment on above: Expected: 11/26/2023 , Expires: 02/25/2024 Start: 11-22-2023 Covid-19 Vaccine (7 - 2024-25 season) Covid-19 Vaccine () [facility] Start: 11-20-2023 End: 11-20-2023 Patient encounter procedure 11/20/2023 11:40 AM EDT Office Visit [facility] [address] [facility] [place] [address] Chema Bashir MD [address] [place] [address] 3 month follow-up Internal Medicine [facility] Comment on above: 3 month follow-up Start: 10-15-2023 3 comp foot exam completed DIABETIC FOOT EXAM [facility] Start: 10-15-2023 COVID-19 VACCINE (6 - Moderna series) COVID-19 VACCINE (6 - Moderna series) [facility] Comment on above: Postponed from 03/30 (Declined at this time) Start: 10-15-2023 Creatinine measurement Serum Creatin ine [facility] Start: 10-15-2023 Diabetic foot examination Diabetic Foot Exam [facility] Start: 10-15-2023 Hepatitis B surface antibody level LDL CHOLESTEROL [facility] Start: 10-15-2023 SERUM CREATININE SERUM CREATININE [facility] Start: 08-18-2023 Hemoglobin A1c measurement HbA1C [facility] Start: 05-20-2023 End: 08-19-2023 Comprehensive metabolic 2000 panel - Serum or Plasma [facility] Work Phone: Comment on above: Expected: 05/20/2023 , Expires: 08/19/2023 Start: 05-20-2023 End: 08-19-2023 Hemoglobin A1c in Blood [facility] Work Phone: Comment on above: Expected: 05/20/2023 , Expires: 08/19/2023 Start: 05-20-2023 End: 08-19-2023 LIPID PANEL, NONFASTING [facility] Work Phone: Comment on above: Expected: 05/20/2023 , Expires: 08/19/2023 Start: 05-09-2023 Covid-19 Vaccine () Covid-19 Vaccine () [facility] Start: 04-17-2023 ANNUAL PCP TEAM CORPORATE ACCOUNT EXECUTIVE CELSA DISEASE VISIT ANNUAL PCP TEAM CHRONIC DISEASE VISIT [facility] Start: 04-16-2023 SERUM CREATININE SERUM CREATININE [facility] Start: 04-14-2023 Glaucoma screening Dilated Retinal E xam [facility] Start: 04-14-2023 Hepatitis C antibody , confirmatory test DILATED RETINAL EXAM [facility] Start: 03-23-2023 Advance Directive Discussion Advance Directive Discussion [facility] Start: 03-23-2023 Depression Assessment Depression Ass essment [facility] Start: 01-14-2023 Hemoglobin A1c measurement HbA1C [facility] Start: 01-14-2023 Hemoglobin A1c/Hemoglobin.total in Blood HBA1C [facility] Start: 01-07-2023 ANNUAL PCP TEAM CORPORATE ACCOUNT EXECUTIVE CELSA DISEASE VISIT ANNUAL PCP TEAM CHRONIC DISEASE VISIT [facility] Start: 01-07-2023 Hepatitis B screening URINE ALBUMIN:CREATININE RATIO [facility] Start: 01-07-2023 SERUM CREATININE SERUM CREATININE [facility] Start: 01-07-2023 SHINGRIX VACCINE (1 of 2) SHINGRIX VACCINE (1 of 2) [facility] Comment on above: Postponed from 06/18 (Declined at this time) Start: 11-21-2022 Influenza vaccination INFLUENZA (#1) [facility] Start: 10-14-2022 Hemoglobin A1c/Hemoglobin.total in Blood HBA1C [facility] Start: 10-01-2022 3 comp foot exam completed DIABETIC FOOT EXAM [facility] Start: 10-01-2022 ANNUAL PCP TEAM CORPORATE ACCOUNT EXECUTIVE CELSA DISEASE VISIT ANNUAL PCP TEAM CHRONIC DISEASE VISIT [facility] Start: 07-22-2022 Hepatitis B surface antibody level LDL CHOLESTEROL [facility] Start: 07-22-2022 SERUM CREATININE SERUM CREATININE [facility] Start: 04-16-2022 End: 06-16-2022 Basic metabolic 2000 panel - Serum or Plasma [facility] Work Phone: Comment on above: Expected: 04/16/2022 , Expires: 06/16/2022 Start: 04-16-2022 End: 06-16-2022 Hemoglobin A1c in Blood [facility] Work Phone: Comment on above: Expected: 04/16/2022 , Expires: 06/16/2022 Start: 04-09-2022 Hemoglobin A1c/Hemoglobin.total in Blood HBA1C [facility] Start: 03-30-2022 COVID-19 VACCINE (6 - Moderna series) COVID-19 VACCINE (6 - Moderna series) [facility] Start: 03-23-2022 ADVANCE DIRECTIVE DISCUSSION ADVANCE DIRECTIVE DISCUSSION [facility] Start: 03-23-2022 DEPRESSION ASSESSMENT DEPRESSION ASS ESSMENT [facility] Start: 01-07-2022 End: 03-09-2022 ALBUMIN/CREAT RATIO RND UR [facility] Work Phone: Comment on above: Expected: 01/07/2022 , Expires: 03/09/2022 Start: 01-07-2022 End: 03-09-2022 Comprehensive metabolic 2000 panel - Serum or Plasma [facility] Work Phone: Comment on above: Expected: 01/07/2022 , Expires: 03/09/2022 Start: 01-07-2022 End: 03-09-2022 Hemoglobin A1c in Blood [facility] Work Phone: Comment on above: Expected: 01/07/2022 , Expires: 03/09/2022 Start: 11-21-2021 Influenza vaccination INFLUENZA (#1) [facility] Start: 10-22-2021 Hemoglobin A1c/Hemoglobin.total in Blood HBA1C [facility] Start: 10-01-2021 End: 12-01-2021 ALBUMIN/CREAT RATIO RND UR ALBUMIN/CREAT RATIO RND UR Lab Routine Type 2 diabetes mellitus without complication, without long-term current use of insulin (HCC) Expected: 10/01/2021, Expires: 12/01/2021 [facility] Work Phone: Comment on above: Expected: 10/01/2021 , Expires: 12/01/2021 Start: 08-15-2021 Adult depression screening assessment DEPRESSION SCREENING [facility] Start: 08-15-2021 ANNUAL PCP TEAM CORPORATE ACCOUNT EXECUTIVE CELSA DISEASE VISIT ANNUAL PCP TEAM CHRONIC DISEASE VISIT [facility] Start: 08-14-2021 Hepatitis B screening URINE ALBUMIN:CREATININE RATIO [facility] Start: 08-14-2021 Hepatitis B surface antibody level LDL CHOLESTEROL [facility] Start: 08-14-2021 SERUM CREATININE SERUM CREATININE [facility] Start: 03-23-2021 ADVANCE DIRECTIVE DISCUSSION ADVANCE DIRECTIVE DISCUSSION [facility] Start: 02-14-2021 Hemoglobin A1c/Hemoglobin.total in Blood HBA1C [facility] Start: 12-20-2020 3 comp foot exam completed DIABETIC FOOT EXAM [facility] Start: 11-21-2020 Influenza vaccination INFLUENZA (#1) [facility] Start: 06-18-2020 PNEUMOVAX AGE 65 AND OVER WITH 5YR LOOKBACK (#1) PNEUMOVAX AGE 65 AND OVER WITH 5YR LOOKBACK (#1) [facility] Start: 01-30-2020 COLORECTAL CANCER SCREENING COLORECTAL CANCER SCREENING [facility] Start: 01-30-2020 FECAL OCCULT BLOOD FECAL OCCULT BLOO D [facility] Start: 01-30-2020 Screening for malign ant neoplasm of colon Fecal Occult Blood [facility] Start: 02-20-2017 Hepatitis C antibody , confirmatory test DILATED RETINAL EXAM [facility] Start: 2015 Hepatitis B Vaccine (1 of 3 - Risk 3-dose series) Hepatitis B Vaccine (1 of 3 - Risk 3-dose series) [facility] Start: 2015 RSV Vaccine (1 - 1-d ose 60+ series) RSV Vaccine (1 - 1-dose 60+ series) [facility] Start: 2015 RSV Vaccine (1 - Ris k 60-74 years 1-dose series) RSV Vaccine (1 - Risk 60-74 years 1-dose series) [facility] Start: 06-18-2005 SHINGRIX VACCINE (1 of 2) SHINGRIX VACCINE (1 of 2) [facility] Start: 06-18-2000 COLOGUARD (FIT-DNA) COLOGUARD (FIT-D NA) [facility] Start: 06-18-2000 Colonoscopy COLONOSCOPY [facility] Start: 06-18-[address] COLONOGRAPHY [facility] Start: 06-18-2000 Screening for malign ant neoplasm of colon [facility] Start: 06-18-2000 [facility] Start: 06-18-1973 BP CONTROLLED (<130/80) BP CONTROLLE D (<130/80) [facility] Start: 1955 ABDOMINAL AORTIC ANEURYSM SCREENING ABDOMINAL AORTIC ANEURYSM SCREENING [facility] Start: 1955 Abdominal aortic aneurysm screening Abdominal Aortic Aneurysm Screening [facility] COLOGUARD COLOGUARD Lab Ro utine Colon cancer screening Ordered: 10/01/2021 [facility] Work Phone: Comment on above: Ordered: 10/01/2021 End: 06-18-2024 US Abdominal Aorta for screening US SCREENING FOR AAA Radiology Routine Screening for AAA (abdominal aortic aneurysm) 1 Occurrences starting 05/20/2023 until 06/18/2024 [facility] Work Phone: Comment on above: 1 Occurrences starti ng 05/20/2023 until 06/18/2024 [facility] Immunizations Immunization Date Immunization Notes Care Provider Fa claudia 12-17-2023 COVID-19 vaccine, ag e 12+ yr (MODERNA) Chema Bashir MD Work Phone: [facility] 11-20-2023 influenza, high dose seasonal, preservative-free Chema Bashir MD Work Phone: [facility] 11-20-2023 influenza virus vacc ine, unspecified formulation Chema Bashir MD Work Phone: [facility] 01-06-2023 COVID-19 vaccine, ag e 12+ yr, season (MODERNA) Daniela Lord MA [facility] 12-18-2022 respiratory syncytia l virus (RSV) vaccine, adjuvanted (AREXVY) Chema Bashir MD Work Phone: [facility] 11-25-2022 influenza (HD-IIV4) vaccine, age 65+ yr, high dose, quadrivalent, PF (FLUZONE HIGH-DOSE) Jemima Older TWISTING FRAME CHANGER.RAILROAD OPERATOR Work Phone: [facility] 12-17-2021 influenza, high dose seasonal, preservative-free Jemima Older TWISTING FRAME CHANGER.RAILROAD OPERATOR Work Phone: [facility] 10-01-2021 pneumococcal (PCV20) vaccine, 20 valent (PREVNAR 20) Jemima Older TWISTING FRAME CHANGER.RAILROAD OPERATOR Work Phone: [facility] 10-01-2021 pneumococcal Conjuga te, unspecified formulation Jemima Older TWISTING FRAME CHANGER.RAILROAD OPERATOR Work Phone: [facility] Work Phone: 07-10-2020 COVID-19 vaccine, fu ll dose (MODERNA) Daniela Lord MA [facility] Work Phone: 06-12-2020 COVID-19 vaccine, fu ll dose (MODERNA) Daniela Lord MA [facility] Work Phone: 12-21-2019 influenza, injectabl e, quadrivalent, contains preservative Daniela Lord MA [facility] 01-07-2019 tetanus and diphther ia toxoids, adsorbed, preservative free, for adult use (5 Lf of tetanus toxoid and 2 Lf of diphtheria toxoid) Daniela Lord MA [facility] 01-31-2010 influenza virus vacc ine, unspecified formulation Daniela Lord [facility] Work Phone: 12-15-2008 influenza virus vacc ine, unspecified formulation Daniela Pop [facility] Work Phone: 07-21-2008 pneumococcal polysaccharide vaccine, 23 valent Daniela Lord MA [facility] 07-21-2008 tetanus toxoid, redu vikram diphtheria toxoid, and acellular pertussis vaccine, adsorbed Daniela Lord [facility] Payers Date Payer Category Payer Medicare MEDICARE MEDICAR E A AND B [id number] 2020-Present [phone] [place] [address] Medicare [id number] 2020 Medicare [id number] 2020 Medicare [id number] Social History Date Type Detail Facility Start: 01-07-2022 End: 11-20-2023 Tobacco smoking status NHIS Ex-smoker [facility] End: 06-22-2015 History of tobacco use Current smoker [facility] End: 06-22-2015 History of tobacco use Cigar Smoker [facility] End: 08-15-2020 History of tobacco use Snuff User [facility] Start: 03-13-2021 End: 04-14-2024 Alcohol intake Current non-drinker of alcohol (finding) [facility] Start: 02-02-2017 End: 01-07-2022 Tobacco Comment quit cigars, occasional snuff [facility] Start: 1955 Sex Assigned At Not on file [facility] Start: 09-10-2021 End: 12-22-2021 Exposure to SARS-CoV-2 (event) Not sure [facility] End: 06-22-2015 History of tobacco use Cigarette Smoker [facility] Start: 01-07-2022 End: 10-14-2022 Cigarette pack-years [facility] Work Phone: Start: 01-07-2022 End: 11-20-2023 Tobacco use and exposure Former smokeless tobacco user [facility] Start: 04-17-2022 End: 10-14-2022 Tobacco use panel [facility] Work Phone: Adult Depression Screening Assessment 0 [facility] Work Phone: How often to you hav e a drink containing alcohol? Never [facility] Work Phone: Has the [employer]{img}, or [employer] threatened to shut off services in your home in past 12Mo No [facility] Are you now , , , , never or living with a partner? [facility] Do you feel stress - tense, restless, nervous, or anxious, or unable to sleep at night because your mind is troubled all the time - these days [OSQ] Not at all [facility] (I/We) worried wheth er (my/our) food would run out before (I/we) got money to buy more. Never true [facility] Medical Equipment Procedure Code Equipment Code Equipment Origin al Text Equipment Identifier Dates [id number], [id number] Start: 01-10-2019 Comment on above: Test 2 times daily, Insulin Dep? Yes E11.9 DM 2 Use one needle per d ose. 1 per day. Functional Status Date Assessment Result Facility 10-16-2015 Are you deaf, or do you have serious difficulty hearing No 10/16/2015 10:40 AM Chema Samuel MD No [facility] 10-16-2015 Are you blind, or do you have serious difficulty seeing, even when wearing glasses No 10/16/2015 10:40 AM Chema Samuel MD No [facility] 10-16-2015 Do you have serious difficulty walking or climbing stairs No 10/16/2015 10:40 AM Chema Samuel MD No [facility] 10-16-2015 Do you have difficul ty dressing or bathing No 10/16/2015 10:40 AM Chema Samuel MD No [facility] 10-16-2015 Because of a physica l, mental, or emotional condition, do you have difficulty doing errands alone such as visiting a physician's office or shopping No 10/16/2015 10:40 AM Chema Samuel MD No [facility] Mental Status Date Assessment Result Facility 10-16-2015 Because of a physica l, mental, or emotional condition, do you have serious difficulty concentrating, remembering, or making decisions No 10/16/2015 10:40 AM Chema Samuel MD [facility] Clinical Notes 10-16-2015 to 10-14-2024 Telephone Encounter [...] Please advise. Thank you. Geraldine Ventura MA. [facility] 10-14-2024 Miscellaneous Notes Formattin g of this [...] Geraldine Ventura MA. documented in this encounter [facility] 10-14-2024 Telephone encount er Note Patient has [...] Please advise. Thank you. Geraldine Ventura MA. [facility] 10-14-2024 Miscellaneous Notes Formattin g of this [...] Geraldine Ventura MA. documented in this encounter [facility] 05-26-2024 Note HNO ID: [id number] Author: CHEMA BASHIR MD Service: ? Author Type: Physician Type: Progress Notes Filed: 05/26/2024 13:52 Note Text: This note was created using [employer]. Subjective Estela Palumbo is a 68 year old male. He was doing well. Blood pressure is better back on lisinopril. Review of Systems Constitutional: Negative for fatigue. Respiratory: Negative for shortness of breath. Cardiovascular: Negative for chest pain. Neurological: Negative for dizziness. ACTIVE PROBLEM LIST Type 2 Diabetes Mellitus With Stage 3 Chronic Kidney Disease, Without Long-Term Current Use of Insulin ([facility]) Essential Hypertension Hyperlipidemia Tobacco Use Disorder Benign Prostatic Hyperplasia With Lower Urinary Tract Symptoms Ckd (Chronic Kidney Disease) Stage 3, Gfr 30-59 Ml/Min ([facility]) Adjustment Disorder With Mixed Anxiety and Depressed [...] with his current dose. Chema Bashir MD [facility] 05-26-2024 History of Presen t illness Narrative This note was created using S² Developmentriter. Subjective Estela Palumbo is a 68 year [...] Kidney Disease) Stage 3, Gfr 30-59 Ml/Min ([facility]) Adjustment Disorder With Mixed Anxiety and Depressed [...] PCP - General (Internal Medicine) Jemima Ba APRN.RAILROAD OPERATOR as Liquefaction Supervisor (Internal Medicine) Shannon Beebe OD Optometry. Outside [...] not done. Schedule. documented in this encounter [facility] 05-26-2024 Instructions Chema Bashir MD - 05/26/2024 1:32 PM EST Advance Directive Forms Advanced Directives Forms (British) FORMS: [email or web address]- [email or web address]-[email or web address].pdf INFORMATIONAL BROCHURE: https://my.[facility].org /-/scassets/files/org/patients -visitors/information/advance- directives.ashx?la=en Advance Directives (non-British) FORMS: [email or web address]://[email or web address] /patients/information/medical- decisions-guide/advance-direct oleg#forms-tab Please bring completed forms to your next appointment or email them to [email or web address]. Patient Resources How to Get Started Talking with Loved Ones about your Wishes at the End of Life https://theconversationproject .org/wp-content/uploads/ 2/ConversationProject-ConvoSta rterKit-British.pdf How to Navigate Conversations with your Care Team around your Preferences [email or web address].org /welcome documented in this encounter [facility] 05-26-2024 Note HNO ID: [id number] Author: CHEMA BASHIR MD Service: ? Author [...] PCP - General (Internal Medicine) Jemima Ba TWISTING FRAME CHANGER.RAILROAD OPERATOR as Liquefaction Supervisor (Internal Medicine) Shannon Beebe OD Optometry. Outside [...] reviewed. - AAA screening not done. Schedule. [facility] 04-14-2024 Note HNO ID: [id number] Author: CHEMA BASHIR MD Service: ? Author [...] Kidney Disease) Stage 3, Gfr 30-59 Ml/Min ([facility]) Adjustment Disorder With Mixed Anxiety and Depressed [...] PSA/PROSTATE SPECIFIC ANTIGEN SCREENING Chema Bashir MD [facility] 04-14-2024 History of Presen t illness Narrative This note was created using [employer]. Subjective Estela Palumbo is a 68 year [...] Chema Bashir MD documented in this encounter [facility] 12-21-2023 Telephone encount er Note Prescription Refill [...] Sánchez MA December 21, 2023 8:02 AM [facility] 12-21-2023 Miscellaneous Notes Formattin g of this [...] 2023 8:02 AM documented in this encounter [facility] 11-20-2023 Instructions Chema Bashir MD - 11/20/2023 12:18 PM EDT BLOOD WORK TODAY. documented in this encounter [facility] 11-20-2023 Note HNO ID: [id number] Author: CHEMA BASHIR MD Service: ? Author Type: Physician Type: Progress Notes Filed: 11/20/2023 14:40 Note Text: This note was created using MediaWorks. Subjective Patient presents with: F/U Diabetes 3 [...] Disease, Without Long-Term Current Use of Insulin ([facility]) Essential Hypertension Hyperlipidemia Tobacco Use Disorder Benign Prostatic Hyperplasia With Lower Urinary Tract Symptoms Ckd (Chronic Kidney Disease) Stage 3, Gfr 30-59 Ml/Min ([facility]) Social History Tobacco Use Smoking status: Former [...] concerns. Counseling re (more content not included)... [facility] 11-20-2023 History of Presen t illness Narrative This note was created using [employer]. Subjective Patient presents with: F/U Diabetes 3 [...] Kidney Disease) Stage 3, Gfr 30-59 Ml/Min ([facility]) Social History Tobacco Use Smoking status: Former [...] Chema Bashir MD documented in this encounter [facility] 08-26-2023 Note HNO ID: [id number] Author: CHEMA BASHIR MD Service: ? Author Type: Physician Type: Progress Notes Filed: 08/27/2023 00:15 Note Text: This note was created using Media[employer]. Subjective Patient presents with: Follow Up Estela [...] Disease, Without Long-Term Current Use of Insulin ([facility]) Essential Hypertension Hyperlipidemia Tobacco Use Disorder Benign Prostatic Hyperplasia With Lower Urinary Tract Symptoms Ckd (Chronic Kidney Disease) Stage 3, Gfr 30-59 Ml/Min ([facility]) Social History Tobacco Use Smoking status: Former [...] ROSUVASTATIN 10 MG TABLET Chema Bashir MD [facility] 08-26-2023 History of Presen t illness Narrative This note was created using [employer]. Subjective Patient presents with: Follow Up Estela [...] Disease, Without Long-Term Current Use of Insulin ([facility]) Essential Hypertension Hyperlipidemia Tobacco Use Disorder Benign Prostatic Hyperplasia With Lower Urinary Tract Symptoms Ckd (Chronic Kidney Disease) Stage 3, Gfr 30-59 Ml/Min ([facility]) Social History Tobacco Use Smoking status: Former [...] Chema Bashir MD documented in this encounter [facility] 05-25-2023 Miscellaneous Notes Formattin g of this [...] for diabetes mellitus. documented in this encounter [facility] 05-25-2023 Evaluation note Diagnosis Type 2 diabetes mellitus with stage 3a chronic kidney disease, without long-term current use of insulin (HCC)- Primary documented in this encounter [facility]02-28-2024 History of Present illness Narrative* Chema Bashir MD - 05/20/2023 3:30 PM EST This note was created using [employer]. Subjective Estela Palumbo is a 67 year [...] Disease, Without Long-Term Current Use of Insulin ([facility]) Essential Hypertension Hyperlipidemia Tobacco Use Disorder Benign Prostatic Hyperplasia With Lower Urinary Tract Symptoms Ckd (Chronic Kidney Disease) Stage 3, Gfr 30-59 Ml/Min ([facility]) Current Outpatient Medications Medication Sig amLODIPine (NORVASC) [...] loss. BMI 28.21 kg/(m^2) [facility] Miscellaneous Notes* Telephone Encounter - Linda Arita [...] Thank you. Linda Lorenzo. [facility]23 Miscellaneous Notes* Telephone Encounter - Misty Mc [...] notify patient. Misty Mc documented [facility]11-[facility]-2023 History of Present illness Narrative* Daniela Lord [...] 29, 2023 12:08 PM [facility] History of Present illness Narrative* Older, Jemima, TWISTING FRAME CHANGER.RAILROAD OPERATOR - 11/25/2022 8:47 AM EDT CC Patient [...] kidney disease) stage 3, GFR 30-59 ml/min ([facility]) 01/07/2019 Crush injury lower leg [...] without long- term current use of insulin ([facility]) - ICD9: 250.40, 585.3, ICD10: [...] plan Jemima Mchugh APRN.CNP documented in this encounter[facility]09-[facility]-2023 Evaluation note* Diagnosis Type 2 diabetes mellitus with stage 3a chronic kidney disease, without long-term current use of insulin (HCC)- Primary Essential hypertension Unspecified essential hypertension Stage 3 chronic kidney disease, unspecified whether stage 3a or 3b CKD (HCC) Hyperlipidemia, unspecified hyperlipidemia type Encounter for immunization Need for other specified prophylactic vaccination against single bacterial disease documented in this encounter [facility]07-13-2023 Miscellaneous Notes* Telephone Encounter - Aislinn Chung [...] Aislinn Chung LPN * Telephone Encounter - [place] Jenny Lorenzo - 10/02/2022 4:43 PM EDT [...] patient. Jenny Shaw Pss documented in this encounterK[facility]03-27-2023 History of Present illness Narrative* Bella Mota [...] 16, 2022 1:41 PM documented in this encounterK[facility]02-09-2023 Miscellaneous Notes* Telephone Encounter - Rhonda Babin [...] BMP in 1 month. documented in this encounterK[facility]-26-2023 History of Present illness Narrative* Chema Bsahir MD - 04/17/2022 9:49 AM EST This note was created using S² Developmentriter. Subjective Estela Palumbo is a 66 year [...] Disease, Without Long-Term Current Use of Insulin ([facility]) Essential Hypertension Hyperlipidemia Tobacco Use Disorder Benign Prostatic Hyperplasia With Lower Urinary Tract Symptoms Ckd (Chronic Kidney Disease) Stage 3, Gfr 30-59 Ml/Min ([facility]) Current Outpatient Medications Medication Sig insulin glargine [...] TABLET - AWV in 2 months with RAILROAD OPERATOR. 3. Hyperlipidemia, unspecified hyperlipidemia type - ICD9: 272.4, ICD10: E78.5 - good control - Continue current medication. Chema Bashir MD documented in this encounterK[facility]01-26-2023 Evaluation note* Diagnosis Type 2 diabetes mellitus with stage 3a chronic kidney disease, without long-term current use of insulin (HCC)- Primary Essential hypertension Unspecified essential hypertension Hyperlipidemia, unspecified hyperlipidemia type documented in this encounter [facility]01-25-2023 Evaluation note* Diagnosis Type 2 diabetes mellitus with stage 3 chronic kidney disease, without long-term current use of insulin, unspecified whether stage 3a or 3b CKD (HCC)- Primary documented in this encounter [facility]01-24-2023 Miscellaneous Notes* Telephone Encounter - Mary Lynn RN - 04/15/2022 4:23 PM EST Pts called in to see if Pt needed to have labs drawn before 04/17 appointment with provider. A1C was up and last done in December. Pt wants to come in the morning to get them done. documented in this encounterK[facility]01-23-2023 History of Present illness Narrative* Shannon Beebe, OD - 04/14/2022 1:19 PM EST 1. Type 2 diabetes mellitus without retinopathy (HCC) Risk of diabetic changes and vision loss can be minimized by tight control of blood sugar, blood pressure, and cholesterol levels. Educated patient to continue care with primary care doctor and/or pan cleaner to maintain optimum levels as they are [...] 14, 2022 1:19 PM documented in this encounterK[facility]01-23-2023 Instructions* Patient Instructions* Shannon Beebe, OD - 04/14/2022 12:59 PM EST Use Systane Complete or Refresh Relieva 2-3 times daily Use Systane, Refresh or Blink gel nightly before bed in both eyes documented in this encounterK[facility]10-18-2022 History of Present illness Narrative* Jemima Mchugh, TWISTING FRAME CHANGER.RAILROAD OPERATOR - 01/07/2022 2:03 PM EDT CC Patient [...] kidney disease) stage 3, GFR 30-59 ml/min ([facility]) 01/07/2019 Crush injury lower leg [...] plan Jemima Mchugh APRN.CNP documented in this encounterK[facility]07-12-2022 Instructions* Patient Instructions* Jemima Mchugh APRN.CNP - 10/01/2021 10:00 AM EDT Bring you blood pressure monitor to your next appointment Labs due before next appointment documented in this encounterK[facility]07-12-2022 History of Present illness Narrative* Jemima Mchugh [...] kidney disease) stage 3, GFR 30-59 ml/min ([facility]) 01/07/2019 Crush injury lower leg [...] plan Jemima Mchugh APRN.CNP documented in this encounterK[facility]03-29-2022 History of Present illness Narrative* Daniela Lord [...] 18, 2021 8:34 AM documented in this encounterK[facility]07-26-2016 History of Past illness Narrative* Problem Noted Date Resolved Date Left sided colitis 10/16/2015 02/02/2017 Medically noncompliant 10/15/2010 7 Calculus of kidney 09/14/2007 01/31/2010 Overview: ED for L sided abd pain in 08-28: admitted CT showed stone in the L ureter with hydronephrosis in 08-28 [facility] 09-27: pt s/p ESWL, rec dietary changes Pt needs 24 hour urine calcium excretion Obesity 07/31/2007 02/02/2017 documented as of this encounter (statuses as of 06/18/2021) [facility]07[facility] History of Past illness Narrative* Problem Noted Date Resolved Date Left sided colitis 10/16/2015 02/02/2017 Medically noncompliant 10/15/2010 7 Calculus of kidney 09/14/2007 01/31/2010 Overview: ED for L sided abd pain in 08-28: admitted CT showed stone in the L ureter with hydronephrosis in 08-28 [facility] 09-27: pt s/p ESWL, rec dietary changes Pt needs 24 hour urine calcium excretion Obesity 07/31/2007 02/02/2017 documented as of this encounter (statuses as of 10/01/2021) [facility] of Past illness Narrative* Problem Noted Date Resolved Date Left sided colitis 10/16/2015 02/02/2017 Medically noncompliant 10/15/2010 7 Calculus of kidney 09/14/2007 01/31/2010 Overview: ED for L sided abd pain in 08-28: admitted CT showed stone in the L ureter with hydronephrosis in 08-28 [facility] 7-08: pt s/p ESWL, rec dietary changes Pt needs 24 hour urine calcium excretion Obesity 07/31/2007 02/02/2017 documented as of this encounter (statuses as of 01/07/2022) [facility] of Past illness Narrative* Problem Noted Date Resolved Date Left sided colitis 10/16/2015 02/02/2017 Medically noncompliant 10/15/2010 7 Calculus of kidney 09/14/2007 01/31/2010 Overview: ED for L sided abd pain in 08-28: admitted CT showed stone in the L ureter with hydronephrosis in 08-28 [facility] 7-08: pt s/p ESWL, rec dietary changes Pt needs 24 hour urine calcium excretion Obesity 07/31/2007 02/02/2017 documented as of this encounter (statuses as of 04/14/2022) [facility] of [facility] illness Narrative* Problem Noted Date Resolved Date Left sided colitis 10/16/2015 02/02/2017 Medically noncompliant 10/15/2010 7 Calculus of kidney 09/14/2007 01/31/2010 Overview: ED for L sided abd pain in 08-28: admitted CT showed stone in the L ureter with hydronephrosis in 08-28 [facility] 7-08: pt s/p ESWL, rec dietary changes Pt needs 24 hour urine calcium excretion Obesity 07/31/2007 02/02/2017 documented as of this encounter (statuses as of 04/16/2022) [facility] of [facility] illness Narrative* Problem Noted Date Resolved Date Left sided colitis 10/16/2015 02/02/2017 Medically noncompliant 10/15/2010 7 Calculus of kidney 09/14/2007 01/31/2010 Overview: ED for L sided abd pain in 08-28: admitted CT showed stone in the L ureter with hydronephrosis in 08-28 [facility] 7-08: pt s/p ESWL, rec dietary changes Pt needs 24 hour urine calcium excretion Obesity 07/31/2007 02/02/2017 documented as of this encounter (statuses as of 04/17/2022) [facility] of Past illness Narrative* Problem Noted Date Resolved Date Left sided colitis 10/16/2015 02/02/2017 Medically noncompliant 10/15/2010 7 Calculus of kidney 09/14/2007 01/31/2010 Overview: ED for L sided abd pain in 08-28: admitted CT showed stone in the L ureter with hydronephrosis in 08-28 [facility] 7-08: pt s/p ESWL, rec dietary changes Pt needs 24 hour urine calcium excretion Obesity 07/31/2007 02/02/2017 documented as of this encounter (statuses as of 05/01/2022) [facility] illness Narrative* Problem Noted Date Resolved Date Left sided colitis 10/16/2015 02/02/2017 Medically noncompliant 10/15/2010 7 Calculus of kidney 09/14/2007 01/31/2010 Overview: ED for L sided abd pain in 08-28: admitted CT showed stone in the L ureter with hydronephrosis in 08-28 [facility] 7-08: pt s/p ESWL, rec dietary changes Pt needs 24 hour urine calcium excretion Obesity 07/31/2007 02/02/2017 documented as of this encounter (statuses as of 06/16/2022) [facility] Narrative* Problem Noted Date Diagnosed Date Resolved Date Left sided colitis 10/16/2015 7 Medically noncompliant 10/15/201002/02 Calculus of kidney 09/14/2007 0 Overview: ED for L sided abd pain in 08-28: admitted CT showed stone in the L ureter with hydronephrosis in 08-28 [facility] 7-08: pt s/p ESWL, rec dietary changes Pt needs 24 hour urine calcium excretion Obesity 07/31/2007 02/02/2017 documented as of this encounter (statuses as of 10/03/2022) [facility] Narrative* Problem Noted Date Diagnosed Date Resolved Date Left sided colitis 10/16/2015 7 Medically noncompliant 10/15/201002/02 Calculus of kidney 09/14/2007 0 Overview: ED for L sided abd pain in 08-28: admitted CT showed stone in the L ureter with hydronephrosis in 08-28 [facility] 7: pt s/p ESWL, rec dietary changes Pt needs 24 hour urine calcium excretion Obesity 07/31/2007 02/02/2017 documented as of this encounter (statuses as of 11/25/2022) [facility] illness Narrative* Problem Noted Date Diagnosed Date Resolved Date Left sided colitis 10/16/2015 7 Medically noncompliant 10/15/201002/02 Calculus of kidney 09/14/2007 0 Overview: ED for L sided abd pain in 08-28: admitted CT showed stone in the L ureter with hydronephrosis in 08-28 [facility] 7-08: pt s/p ESWL, rec dietary changes Pt needs 24 hour urine calcium excretion Obesity 07/31/2007 02/02/2017 documented as of this encounter (statuses as of 01/30/2023) [facility] illness Narrative* Problem Noted Date Diagnosed Date Resolved Date Left sided colitis 10/16/2015 7 Medically noncompliant 10/15/201002/02 Calculus of kidney 09/14/2007 0 Overview: ED for L sided abd pain in 08-28: admitted CT showed stone in the L ureter with hydronephrosis in 08-28 [facility] 7-: pt s/p ESWL, rec dietary changes Pt needs 24 hour urine calcium excretion Obesity 07/31/2007 02/02/2017 documented as of this encounter (statuses as of 03/06/2023) [facility] illness Narrative* Problem Noted Date Diagnosed Date Resolved Date Left sided colitis 10/16/2015 7 Medically noncompliant 10/15/201002/02 Calculus of kidney 09/14/2007 0 Overview: ED for L sided abd pain in 08-28: admitted CT showed stone in the L ureter with hydronephrosis in 08-28 [facility] 7-: pt s/p ESWL, rec dietary changes Pt needs 24 hour urine calcium excretion Obesity 07/31/2007 02/02/2017 documented as of this encounter (statuses as of 04/26/2023) [facility] Narrative* Problem Noted Date Diagnosed Date Resolved Date Left sided colitis 10/16/2015 7 Medically noncompliant 10/15/201002/02 Calculus of kidney 09/14/2007 0 Overview: ED for L sided abd pain in 08-28: admitted CT showed stone in the L ureter with hydronephrosis in 08-28 [facility] 7-: pt s/p ESWL, rec dietary changes Pt needs 24 hour urine calcium excretion Obesity 07/31/2007 02/02/2017 documented as of this encounter (statuses as of 05/21/2023) [facility] Narrative* Problem Noted Date Diagnosed Date Resolved Date Left sided colitis 10/16/2015 7 Medically noncompliant 10/15/201002/02 Calculus of kidney 09/14/2007 0 Overview: ED for L sided abd pain in 08-28: admitted CT showed stone in the L ureter with hydronephrosis in 08-28 [facility] 09-27: pt s/p ESWL, rec dietary changes Pt needs 24 hour urine calcium excretion Obesity 07/31/2007 02/02/2017 documented as of this encounter (statuses as of 05/25/2023) [facility]* Diagnosis Essential hypertension- Primary Unspecified essential hypertension Type 2 diabetes mellitus without complication, without long-term current use of insulin (HCC) Colon cancer screening Special screening for malignant neoplasms, colon Encounter for immunization Need for other specified prophylactic vaccination against single bacterial disease [facility]* Diagnosis Essential hypertension- Primary Unspecified essential hypertension Type 2 diabetes mellitus with stage 3 chronic kidney disease, without long-term current use of insulin, unspecified whether stage 3a or 3b CKD (HCC) [facility]* Diagnosis Type 2 diabetes mellitus without retinopathy (HCC)- Primary Type II or unspecified type diabetes mellitus without mention of complication, not stated as uncontrolled Combined forms of age-related cataract of both eyes Other and combined forms of senile cataract Peripheral corneal degeneration, bilateral Regular astigmatism of both eyes Regular astigmatism Presbyopia [facility]* Diagnosis Essential hypertension Unspecified essential hypertension [facility]* Diagnosis Medicare annual wellness visit, subsequent- [...] of unspecified site documented in this encounter [facility] note* Diagnosis Stage 3 chronic kidney disease, unspecified whether stage 3a or 3b CKD (HCC)- Primary Type 2 diabetes mellitus with stage 3a chronic kidney disease, without long-term current use of insulin (HCC) Essential hypertension Unspecified essential hypertension Hyperlipidemia, unspecified hyperlipidemia type [facility]* Diagnosis Type 2 diabetes mellitus without [...] of insulin (HCC) [facility]* Diagnosis Type 2 diabetes mellitus without complication, without long-term current use of insulin (HCC)- Primary Essential hypertension Unspecified essential hypertension Hyperlipidemia, unspecified hyperlipidemia type Adjustment disorder with mixed anxiety and depressed mood [facility]* Diagnosis Type 2 diabetes mellitus without [...] neoplasm of prostate [facility]* Diagnosis Type 2 diabetes mellitus without complication, without long-term current use of insulin (HCC)- Primary Essential hypertension Unspecified essential hypertension Hyperlipidemia, unspecified hyperlipidemia type Medicare annual wellness visit, subsequent- Primary Routine general medical examination at a [facility] care facility Type 2 diabetes mellitus with stage 3a chronic kidney disease, without long-term current use of insulin (HCC) Essential hypertension Unspecified essential hypertension Hyperlipidemia, unspecified hyperlipidemia type Adjustment disorder with mixed anxiety and depressed mood documented in this encounter [facility] note* Diagnosis Type 2 diabetes mellitus without complication, without long-term current use of insulin (HCC)- Primary Essential hypertension Unspecified essential hypertension Hyperlipidemia, unspecified hyperlipidemia type Essential hypertension Unspecified essential hypertension documented in this encounter [facility] note* Diagnosis Type 2 diabetes mellitus without complication, without long-term current use of insulin (HCC)- Primary Essential hypertension Unspecified essential hypertension Hyperlipidemia, unspecified hyperlipidemia type Hyperlipidemia, unspecified hyperlipidemia type documented in this encounter [facility] Advance Directives Documents on File Type Date Recorded 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 Advance Directive(s) Reason for Referral Specialty Diagnoses / Procedures Referred By Brian bonilla Referred To Contact Ophthalmology Diagnoses Type 2 diabetes mellitus with stage 3 chronic kidney disease, without long-term current use of insulin, unspecified whether stage 3a or 3b CKD (HCC) Procedures CONSULT TO OPHTHALMOLOGY OFFICE/OUTPATIENT NEW HIGH MDM 60-74 MINUTES Older, Jemima, TWISTING FRAME CHANGER.RAILROAD OPERATOR [address] [place] [address] Referral ID Status Reason Start Date Expiration Date Visits Requested Visits Authorized [id number] Authorized PCP Requested Referral 2 01/07/2023 1 1 Specialty Diagnoses / Procedures Referred By Brian bonilla Referred To Contact Ophthalmology Diagnoses Type 2 diabetes mellitus with stage 3a chronic kidney disease, without long-term current use of insulin (HCC) Procedures CONSULT TO OPHTHALMOLOGY OFFICE/OUTPATIENT [facility] 60 MINUTES Chema Bashir MD [address] [place] [address] Referral ID Status Reason Start Date Expiration Date Visits Requested Visits Authorized [id number] Authorized PCP Requested Referral 05/20/2023 05/19/2024 1 1 Specialty Diagnoses / Procedures Referred By Brian bonilla Referred To Contact US IMAGING Diagnoses Screening for AAA (abdominal aortic aneurysm) Procedures US SCREENING FOR AAA (2017) US ABDOMINAL AORTA REAL TIME SCREEN STUDY AAA Chema Bashir MD [address] [place] [address] [place] [address] Referral ID Status Reason Start Date Expiration Date Visits Requested Visits Authorized [id number] Authorized Auto-Generat ed Referral 05/20/2023 06/18/2024 1 [...] or prosecute any alcohol or drug abuse patient.[facility] the event this information is protected by the Federal Confidentiality of Alcohol and Drug Abuse Patient Records regulations: The Federal rules restrict any use of the information to criminally investigate or prosecute any alcohol or drug abuse patient.[facility] CampusIn the event this information is protected by the Federal Confidentiality of Alcohol and Drug Abuse Patient Records regulations: The Federal rules restrict any use of the information to criminally investigate or prosecute any alcohol or drug abuse patient.[facility] CampusIn the event this information is protected by the Federal Confidentiality of Alcohol and Drug Abuse Patient Records regulations: The Federal rules restrict any use of the information to criminally investigate or prosecute any alcohol or drug abuse patient.[facility] CampusIn the event this information is protected by the Federal Confidentiality of Alcohol and Drug Abuse Patient Records regulations: The Federal rules restrict any use of the information to criminally investigate or prosecute any alcohol or drug abuse patient.[facility] CampusIn the event this information is protected by the Federal Confidentiality of Alcohol and Drug Abuse Patient Records regulations: The Federal rules restrict any use of the information to criminally investigate or prosecute any alcohol or drug abuse patient.[facility] CampusIn the event this information is protected by the Federal Confidentiality of Alcohol and Drug Abuse Patient Records regulations: The Federal rules restrict any use of the information to criminally investigate or prosecute any alcohol or drug abuse patient.[facility] CampusIn the event this information is protected by the Federal Confidentiality of Alcohol and Drug Abuse Patient Records regulations: The Federal rules restrict any use of the information to criminally investigate or prosecute any alcohol or drug abuse patient.[facility] CampusIn the event this information is protected by the Federal Confidentiality of Alcohol and Drug Abuse Patient Records regulations: The Federal rules restrict any use of the information to criminally investigate or prosecute any alcohol or drug abuse patient.[facility] CampusIn the event this information is protected by the Federal Confidentiality of Alcohol and Drug Abuse Patient Records regulations: The Federal rules restrict any use of the information to criminally investigate or prosecute any alcohol or drug abuse patient.[facility] CampusIn the event this information is protected by the Federal Confidentiality of Alcohol and Drug Abuse Patient Records regulations: The Federal rules restrict any use of the information to criminally investigate or prosecute any alcohol or drug abuse patient.[facility] CampusIn the event this information is protected by the Federal Confidentiality of Alcohol and Drug Abuse Patient Records regulations: The Federal rules restrict any use of the information to criminally investigate or prosecute any alcohol or drug abuse patient.[facility] CampusIn the event this information is protected by the Federal Confidentiality of Alcohol and Drug Abuse Patient Records regulations: The Federal rules restrict any use of the information to criminally investigate or prosecute any alcohol or drug abuse patient.[facility] CampusIn the event this information is protected by the Federal Confidentiality of Alcohol and Drug Abuse Patient Records regulations: The Federal rules restrict any use of the information to criminally investigate or prosecute any alcohol or drug abuse patient.[facility] CampusIn the event this information is protected by the Federal Confidentiality of Alcohol and Drug Abuse Patient Records regulations: The Federal rules restrict any use of the information to criminally investigate or prosecute any alcohol or drug abuse patient.[facility] CampusIn the event this information is protected by the Federal Confidentiality of Alcohol and Drug Abuse Patient Records regulations: The Federal rules restrict any use of the information to criminally investigate or prosecute any alcohol or drug abuse patient.[facility] CampusIn the event this information is protected by the Federal Confidentiality of Alcohol and Drug Abuse Patient Records regulations: The Federal rules restrict any use of the information to criminally investigate or prosecute any alcohol or drug abuse patient.[facility] CampusIn the event this information is protected by the Federal Confidentiality of Alcohol and Drug Abuse Patient Records regulations: The Federal rules restrict any use of the information to criminally investigate or prosecute any alcohol or drug abuse patient.[facility] CampusIn the event this information is protected by the Federal Confidentiality of Alcohol and Drug Abuse Patient Records regulations: The Federal rules restrict any use of the information to criminally investigate or prosecute any alcohol or drug abuse patient.[facility] CampusIn the event this information is protected by the Federal Confidentiality of Alcohol and Drug Abuse Patient Records regulations: The Federal rules restrict any use of the information to criminally investigate or prosecute any alcohol or drug abuse patient.[facility] CampusIn the event this information is protected by the Federal Confidentiality of Alcohol and Drug Abuse Patient Records regulations: The Federal rules restrict any use of the information to criminally investigate or prosecute any alcohol or drug abuse patient.[facility] CampusIn the event this information is protected by the Federal Confidentiality of Alcohol and Drug Abuse Patient Records regulations: The Federal rules restrict any use of the information to criminally investigate or prosecute any alcohol or drug abuse patient.[facility] Reason for Visit (unrecogniz ed section and [...] NEW HIGH MDM 60-74 MINUTES Older, DANIELA Onofre.RAILROAD OPERATOR [address] [place] [address] Referral ID Status Reason Start Date Expiration Date V isits Requested Visits Authorized [id number] Closed PCP Requested Referral 01/07/2022 01/07/2023 1 [...] Care Teams (unrecognized sec tion and content) Sales Expert Home Theater Relationship Specialty Start Date End Date Chema Bashir MD [address] [place], [place] [id number] PCP - General Internal Medicine 01/31/10 Mirta Santiago formerly [facility] [address] [place], [place] [id number] Pharmacist Pharmacy 01/11/19 Sales Expert Home Theater Relationship Specialty Start Date End Date Chema Bashir MD [address] [place], [place] [id number] PCP - General Internal Medicine 01/31/10 Mirta Santiago formerly [facility] [address] [place] [address] Pharmacist Pharmacy 01/11/19 Sales Expert Home Theater Relationship Specialty Start Date End Date Chema Bashir MD [address] [place] [address] PCP - General Internal Medicine 01/31/10 Mirta Santiago, formerly [facility] [address] [place] [address] Pharmacist Pharmacy 01/11/19 Sales Expert Home Theater Relationship Specialty Start Date End Date Chema Bashir MD [address] [place] [address] PCP - General Internal Medicine 01/31/10 Mirta Santiago, formerly [facility] [address] [place] [address] Pharmacist Pharmacy 01/11/19 Sales Expert Home Theater Relationship Specialty Start Date End Date Chema Bahsir MD [address] [place] [address] PCP - General Internal Medicine 01/31/10 Mirta Santiago, formerly [facility] [address] [place] [address] Pharmacist Pharmacy 01/11/19 Sales Expert Home Theater Relationship Specialty Start Date End Date Chema Bashir MD [address] [place] [address] PCP - General Internal Medicine 01/31/10 Mirta Santiago, formerly [facility] [address] [place] [address] Pharmacist Pharmacy 01/11/19 Sales Expert Home Theater Relationship Specialty Start Date End Date Chema Bashir MD [address] [place] [address] PCP - General Internal Medicine 01/31/10 Mirta Santiago, formerly [facility] [address] [place] [address] Pharmacist Pharmacy 01/11/19 Sales Expert Home Theater Relationship Specialty Start Date End Date Chema Bashir MD [address] [place] [address] PCP - General Internal Medicine 01/31/10 MckinleyMirta kirkpatrick, formerly [facility] [address] [place] [address] Pharmacist Pharmacy 01/11/19 Sales Expert Home Theater Relationship Specialty Start Date End Date Chema Bashir MD [address] [place] [address] PCP - General Internal Medicine 01/31/10 Mckinleykaya Mirta, formerly [facility] [address] [place] [address] Pharmacist Pharmacy 01/11/19 Sales Expert Home Theater Relationship Specialty Start Date End Date Chema Bashir MD [address] [place] [address] PCP - General Internal Medicine 01/31/10 MckinleyMirta kirkpatrick, formerly [facility] [address] [place] [address] Pharmacist Pharmacy 01/11/19 Sales Expert Home Theater Relationship Specialty Start Date End Date Chema Bashir MD [address] [place] [address] PCP - General Internal Medicine 01/31/10 Mirta Santiago, formerly [facility] [address] [place] [address] Pharmacist Pharmacy 01/11/19 Sales Expert Home Theater Relationship Specialty Start Date End Date Chema Bashir MD [address] [place] [address] PCP - General Internal Medicine 01/31/10 [facility] [address] [place] [address] Pharmacist Pharmacy 01/11/19 Sales Expert Home Theater Relationship Specialty Start Date End Date Chema Bashir MD [address] [place] [address] PCP - General Internal Medicine 01/31/10 [facility] [address] [place] [address] Pharmacist Pharmacy 01/11/19 Sales Expert Home Theater Relationship Specialty Start Date End Date Chema Bashir MD [address] [place] [address] PCP - General Internal Medicine 01/31/10 Sales Expert Home Theater Relationship Specialty Start Date End Date Chema Bashir MD [address] [place] [address] PCP - General Internal Medicine 01/31/10 Sales Expert Home Theater Relationship Specialty Start Date End Date Chema Bashir MD [address] [place] [address] PCP - General Internal Medicine 01/31/10 Sales Expert Home Theater Relationship Specialty Start Date End Date Chema Bashir MD [address] [place] [address] PCP - General Internal Medicine 01/31/10 Jemima Ba, TWISTING FRAME CHANGER.RAILROAD OPERATOR [address] [place] [address] Liquefaction Supervisor [facility] 02/29/24 Sales Expert Home Theater Relationship Specialty Start Date End Date Chema Bashir MD [address] [place], [place] [id number] PCP - General Internal Medicine 01/31/10 Jemima Ba, TWISTING FRAME CHANGER.RAILROAD OPERATOR [address] [place] [address] Liquefaction Supervisor [facility] 02/29/24 Sales Expert Home Theater Relationship Specialty Start Date End Date Chema Bashir MD [address] [place], [place] [id number] PCP - General Internal Medicine 01/31/10 Jemima Ba, TWISTING FRAME CHANGER.RAILROAD OPERATOR [address] [place] [address] [facility] 02/29/24 (unrecognized sect ion and content) No Status Records Found INFORMATION SOURCE (unrecogn ized section and content) DATE CREATED AUTHOR 05/27/2024 [facility] FOR RECORDS PERTAINING TO PATIENTS WHO ARE [...] BE BASED ON THE PRIMARY CLINICAL RECORDS. [employer] provides no warranty or guarantee of the accuracy or completeness of information in this document.
--- NOTE | 2024-10-23 15:44 | PRE.ANES_ITS ---
ASA Classification* ASA Classification ASA Classification: 2 and E Assessment & Plan Anesthesia* Anesthesia Assessment Anesthesia Assessment: Discussed sedation and/or anesthesia options, risks, benefits, and alternatives with patient/parents/legal guardian/POA. Questions invited. The patient/parents/legal guardian/POA seems to understand and agrees to proceed with anesthesia plan. Reviewed the physical assessment, medical history, allergy history and patient home medications list prior to surgery/procedure/anesthetic and documented any changes. Performed airway and anesthesia risk assessments. Anesthesia Type Anesthesia Type: General Anesthesia Focused Assessment* Temperature: 98.5 F Pulse Rate: 65 Blood Pressure: 138/77 Respiratory Rate: 18 Pulse Ox: 97 Airway Assessment Mouth opens: >3 cm Mallampati Score: II Labs Anesthesia Preop lab: CBC WBC 12.3 K/mm3 (4.4-11.0) H 10/23/24 13:14 5 RBC 5.25 M/mm3 (4.6-6.2) 10/23/24 13:14 10/23/24 Hgb 14.2 g/dL (13.0-16.5) 10/23/24 13:14 10/23/24 Hct 42.9 % (40-54) 10/23/24 13:14 10/23/24 Plt Count 260 K/mm3 (150-450) 10/23/24 13:14 10/23/24 CHEMISTRY Potassium 5.4 mmol/L (3.3-5.1) H 10/23/24 13:14 10/23/24 Sodium 139 mmol/L (133-145) 10/23/24 13:14 10/23/24 Magnesium 2.0 mg/dL (1.8-2.4) 10/12/15 06:05 10/12/15 BUN 36 mg/dL (4-19) H 10/23/24 13:14 10/23/24 Creatinine 1.69 mg/dL (0.70-1.20) H 10/23/24 13:14 Glucose 166 mg/dL (70-99) H 10/23/24 13:14 10/23/24 POC Glucose 143 mg/dL (70-110) H 10/13/15 07:51 10/13/15 COAG Pre-Assessment Diagnosis/Proposed Procedure Planned Operative Procedure(s): Laproscopic appendectomy Anesthesia History 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 When Was Last Pacemaker Check QUESTION #4 FULL TEXT: You/Your Family Experience fever (hyperthermia) with Anesthesia Last Oral Intake Last Oral intake: Last Oral Intake NPO since Meds taken in AM with sips of water? Meds patient instructed to take am of surgery PONV PONV - scrubbing machine operator: PONV - scrubbing machine operator Female HX of Motion Sickness HX of N/V After Surgery Non-Smoker Duration of Surgery greater than 60 minutes Number of Risk Factors PONV Score Height & Weight Height & Weight: Anesthesia: Height & Weight Height 5 ft 10 in 10/23/24 15:23 Weight: 81.647 kg 10/23/24 15:23 Body Mass Index (BMI) 25.8 10/23/24 15:23 Respiratory Assessment Respiratory Assessment - scrubbing machine operator: Respiratory Tract Infection Hx - scrubbing machine operator Hx Respiratory Tract Infection No 10/23/24 15:23 STOP Sleep Apnea STOP Sleep Apnea - scrubbing machine operator: STOP Sleep Apnea - scrubbing machine operator Hx Hypertension Yes 10/23/24 15:23 Hx Sleep Apnea No 10/23/24 15:23 CPAP BIPAP Do you snore loudly (louder No 10/23/24 15:23 than talking or can be heard Do you often feel tired/ No 10/23/24 15:23 fatigued/ sleepy during daytime? Has anyone observed you stop No 10/23/24 15:23 breathing during sleep? STOP Results Negative 10/23/24 15:23 QUESTION #5 FULL TEXT : Do you snore loudly (louder than talking or can be heard through closed doors)? Tobacco Use History Tobacco Use History - scrubbing machine operator: Tobacco Use History - scrubbing machine operator Tobacco Use Smoking Status Former smoker 10/23/24 12:47 Hx Tobacco Use Yes 10/11/15 14:59 Years Smoking Packs Smoked per Day Smoking Cessation Date was Yes - quit smoking within 15 10/23/24 12:47 within the last 15 years years Hx Smoking Cessation Date Hx Smoking Cessation Counseling Hematologic Medial History Hematologic Hx - scrubbing machine operator: Hematologic Medical Hx - rabbler Hx of Blood Transfusion Hx of Transfusion in last 3 Months Date of Last Transfusion (if within last 3 months) Ever experience any problems with transfusion(s)? Specify any problems Hx of Preganancy in last 3 Months Nurse Filling Out Transfusion & Questions: Date: Time: Patient unable to answer at this time (ie. confused, unrespo /Reproduction History /Reproductive History - scrubbing machine operator: /Reproductive Hx- scrubbing machine operator Hx Now No 10/23/24 15:23 Gestational Age (in weeks): EDC: Hx Hx Para Hx Section SAB No 10/23/24 15:23 Active Medications Active Medications: Current Medications Generic Name Dose Route Start Last Admin Trade Name Freq PRN Reason Stop Dose Admin Sodium Chloride 1,000 mls @ 999 mls/hr 10/23/24 15:17 IV 10/23/24 16:17 .Q1H1M [facility] Medical History Hyperlipidemia Diabetes HTN (hypertension) Home Medications ?Medication ?Instructions ?Recorded ?Last Taken ?Type diltiazem HCl 240 mg 240 mg PO DAILY 10/23/2404/16 History capsule,extended release 24 hr (Cartia XT) glipizide 10 mg tablet, extended 10 mg PO DAILY 10/21/24 History release 24 hr insulin glargine 100 unit/mL (3 26 unit subcut QHS 06/1410/21/24 History mL) subcutaneous pen (Lantus Solostar U-100 Insulin) lisinopril 40 mg tablet 40 mg PO DAILY 10/23/2404/16 History rosuvastatin 10 mg tablet 10 mg PO QHS 10/23/24 History sertraline 50 mg tablet 50 mg PO DAILY 10/23/2404/16 History Allergy/AdvReac Type Severity Reaction Status Date / Time No Known Allergies Allergy Verified 08/03/25 12:18 Social History Smoking Status: Former smoker Review of Systems (Anesthesia) ROS Narrative System reviewed and no additional complaints, except as documented.
--- NOTE | 2024-10-23 15:58 | PCM.HP.STD ---
HPI - General General Date of Admission: 10/23/24 Date of Service: 10/23/24 Chief Complaint: Right-sided abdominal pain HPI Narrative ESTELA PALMA, is a 69 M who presents to the emergency department this afternoon with right lower quadrant abdominal pain that started yesterday. He has a past medical history of hypertension diabetes, colitis, GI bleed. He states that his pain is associated with nausea as well as decreased appetite. He remains laid in bed all day yesterday. He states that his pain is actually a little less severe today but still present. Due to persistence of this pain he presented to the emergency department. He was found to have an elevated white blood cell count and a CT scan showed findings consistent with appendicitis. General surgery consult was recommended. [facility] Medical History Hyperlipidemia Diabetes HTN (hypertension) Home Medications ?Medication ?Instructions ?Recorded ?Last Taken ?Type diltiazem HCl 240 mg 240 mg PO DAILY 10/23/24 10/21/24 History capsule,extended release 24 hr (Cartia XT) glipizide 10 mg tablet, extended 10 mg PO DAILY 10/23/24 10/21/24 History release 24 hr insulin glargine 100 unit/mL (3 26 unit subcut QHS 10/23/24 10/21/24 History mL) subcutaneous pen (Lantus Solostar U-100 Insulin) lisinopril 40 mg tablet 40 mg PO DAILY 10/23/24 10/21/24 History rosuvastatin 10 mg tablet 10 mg PO QHS 10/23/24 10/21/24 History sertraline 50 mg tablet 50 mg PO DAILY 10/23/24 10/21/24 History Allergy/AdvReac Type Severity Reaction Status Date / Time No Known Allergies Allergy Verified 10/23/24 12:18 Social History Smoking Status: Former smoker ROS Constitutional Constitutional: Reports systems reviewed and no addt'l complaints, except as documented Eyes Eyes: Reports systems reviewed and no addt'l complaints, except as documented ENT HEENT: Reports systems reviewed and no addt'l complaints, except as documented Cardiovascular Cardiovascular: Reports systems reviewed and no addt'l complaints, except as documented Respiratory/Chest Respiratory/Chest: Reports systems reviewed and no addt'l complaints, except as documented Vital Signs Vital Signs Vital Signs: 10/23/24 12:16 10/23/24 14:16 10/23/24 15:23 Temperature 97.9 F 98.5 F Temperature Source Oral Oral Pulse Rate 108 H 58 L 65 Respiratory Rate 16 18 18 Blood Pressure 158/84 H 143/75 H 138/77 H Blood Pressure Mean 108 97 97 Blood Pressure Source Monitor Blood Pressure Position Semi-Fowlers Blood Pressure Location Right Arm Pulse Ox 97 100 97 Oxygen Delivery Method Room Air Room Air Room Air 10/23/24 15:44 10/23/24 15:45 Temperature 98.5 F 98.5 F Temperature Source Pulse Rate 65 65 Respiratory Rate 18 18 Blood Pressure 138/77 H 138/77 H Blood Pressure Mean 97 Blood Pressure Source Blood Pressure Position Blood Pressure Location Pulse Ox 97 97 Oxygen Delivery Method Weight Weight: 180 lb Body Mass Index (BMI) 25.8 Physical Exam Narrative He is alert and oriented x 3. He is in no acute distress. Head is normocephalic and atraumatic. Pupils are equal round and reactive to light. Lungs are clear to auscultation bilaterally. Abdomen is soft and nondistended. Mild to moderate right-sided abdominal pain. No rebound or guarding. Results Medical Records Data Attestation: I reviewed the patient's medical records Lab / Micro Data Attestation: I reviewed the patient's lab results. 10/23/24 13:14 10/23/24 13:14 Labs: Laboratory Results - last 24 hr 10/23/24 13:14: WBC 12.3 H, RBC 5.25, Hgb 14.2, Hct 42.9, MCV 81.7, MCH 27.0, MCHC 33.1, RDW Std Deviation 40.2, RDW Coeff of Jw 13.7, Plt Count 260, MPV 10.4, Immature Gran % (Auto) 0.400, Neut % (Auto) 79.2 H, Lymph % (Auto) 11.7 L, Morrison % (Auto) 6.7, Eos % (Auto) 1.5, Baso % (Auto) 0.5, Absolute Neuts (auto) 9.7 H, Absolute Lymphs (auto) 1.43, Nucleated RBC % 0, Sodium 139, Potassium 5.4 H, Chloride 107, Carbon Dioxide 19.2 L, Anion Gap 14, BUN 36 H, Creatinine 1.69 H, Estim Creat Clear Calc 42.60 L, Est GFR (MDRD) Non-Af 43 L, BUN/Creatinine Ratio 21.5 H, Glucose 166 H, Calcium 9.8, Total Bilirubin 0.71, AST 18, ALT 13, Alkaline Phosphatase 71, Total Protein 7.4, Albumin 4.3, Globulin 3.1, Albumin/Globulin Ratio 1.4, Urine Color Yellow, Urine Clarity Clear, Urine pH 5.0, Ur Specific [place] 1.020, Urine Protein 30 H, Urine Glucose (UA) Normal, Urine Ketones 5 H, Urine Occult Blood 10 H, Urine Nitrite Negative, Urine Bilirubin Negative, Urine Urobilinogen Normal, Ur Leukocyte Esterase Negative, Urine RBC 0 SEEN, Urine WBC 0 SEEN, Ur Squamous Epith Cells 0 SEEN, Urine Bacteria 0 SEEN, Urine Mucus 0 SEEN Imaging Radiology Impression Abdomen/Pelvis CT 10/23/24 12:47 IMPRESSION: Possible CT evidence of acute uncomplicated appendicitis. Appendix abnormally located in the right upper quadrant. Clinical correlation is advised. Attempting to contact referring provider at the time of this dictation. Reading Location: [facility] Assessment & Plan Assessment/Plan (1) Acute appendicitis: PLAN: Plan Patient is a 69-year-old male with right-sided abdominal pain for the past [address] scan workup through the emergency department indicates probable uncomplicated appendicitis. I have offered him a laparoscopic appendectomy as treatment. We discussed the details of the planned procedure including the risk benefits and alternatives. He wishes to proceed. This will begin momentarily. Charges/Coding Visit Charges Inpatient E&M: 39537 Init Hosp L3
--- NOTE | 2024-10-23 16:20 | APP_PTH ---
PATIENT: ESTELA PALMA [place] [facility] [id number] AGE/SX: 69/M ROOM: RE10/23/[address]: Dr. Mikey Harris MD : 1955 BED: DIS: 10/23/2024 SPEC #: [id number] RECD: 10/24/24 08:46 STATUS: TONI RESirisha #: [id number] SEPIDEH: 10/23/24 16:[address]: Mikey Harris DEPT: SURGICAL PATHOLOGY RECD BY: Abimael Sood ENTERED: 10/24/24 13:08 SP TYPE: APPENDIX OTHR DR: Dr. Chema Shelley MD Tissues: A - Appendix, NOS Procedures: Surgery Specimen Level III HEADER OPERATION: Laparoscopic appendectomy PRE-OP DIAGNOSIS: Abdominal pain TISSUE SUBMITTED: A- Appendix MICROSCOPIC DIAGNOSIS A. Appendix, appendectomy: - Acute appendicitis. MICROSCOPIC DESCRIPTION Slides are reviewed. GROSS DESCRIPTION A. Received in formalin labeled with the patient's name and date of . Designated as appendix is a 6.6 x 0.9 cm pink-purple to red and granular appendix with up to 4.1 cm of attached focally congested mesoappendix. The resection margin is inked black and shaved. Sectioning reveals a pink-red congested parenchyma devoid of luminal contents. Hide Worker sections are submitted in 2 cassettes as follows: A1: Distal tipA2: Margin, cross-sections CO 10/24/2024 CPT:76601
[2024-10-23] MEDS: Bupiv/Epi 0.25% 30 ML Vial (16:27)
--- NOTE | 2024-10-23 16:52 | PCM.OPRPT ---
Procedures Digestive 40xxx-49xxx: 20664 Laparoscopy appendectomy Operative Report (Standard) Operative Information Date of Procedure: 10/23/24 Pre-Operative Diagnosis: acute appendicitis Post-Operative Diagnosis: same Surgery/Procedure Performed: laparoscopic appendectomy milker machine: Yes Weatherization Administrator: Rekha Marte Tasks completed by housing assistant property manager: Closing, Trocar and Other Type of Anesthesia: General and Local RN Documented Start/Stop Times: Operation Date: 10/23/24 16:20 Case Time Anesthesia Start 10/23/24 15:56 Into Room 10/23/24 15:56 Procedure Start 10/23/24 16:16 Procedure End 10/23/24 16:52 Anesthesia End 10/23/24 16:57 Out of Room 10/23/24 16:57 Into Recovery 10/23/24 17:00 Procedure Start Time: 16:16 Procedure Stop Time: 16:52 Select all DRAINS/GRAFTS/IMPLANTS that apply: None Special Medications: Zosyn Estimated Blood Loss: 10 ML Specimen collected: Yes Description of specimen(s) removed: appendix Description of surgery: The patient is a 69-year-old male who is being seen today for abdominal pain. He presented to the emergency room with right lower quadrant pain for about a day. He was seen and evaluated by the ER staff. CT scan was performed and showed appendicitis. Laparoscopic appendectomy was offered to him. We discussed the details of the planned procedure including the risk benefits and alternatives. He wished to proceed. He was brought to the operating today following informed consent preoperative antibiotics were given and a timeout was performed. He was placed supine on the operative table with arms outstretched and arm boards. A general endotracheal anesthesia was induced. The abdomen was then prepped and draped in the usual sterile manner. A 5 mm incision was made just below the umbilicus which a 5 mm trocar was placed optically. This was placed without incident. Once in place the abdomen is then fully insufflated with CO2 gas. A 5 mm 0 degree scope was inserted. There were no signs of bowel or vascular injury. Next a 5 mm trocar was placed in the left lower quadrant and a 12 mm trocar was placed in the left upper quadrant. Both of these were placed without difficulty. The cecum was identified and was reflected in a cephalad direction in order to expose the appendix. It was mildly inflamed. This was grasped near the base. A [place] dissector was used to create a small window in the mesentery near the base of the appendix. A CARMINA stapler was fired across the base the appendix flush with the cecum. 2 vascular loads were then used to go across the mesoappendix. There was a small amount of oozing initially. A power suction salvage diver was obtained. The staple lines were now nicely hemostatic. The appendix was placed in Endobag and brought out through the 12 mm trocar site. The staple lines were again examined and a total of about 3 L of saline were used to irrigate the right lower quadrant. I placed 2 pieces of Surgicel across the staple lines just to ensure hemostasis. Again there were no signs of oozing or bleeding at the completion. The fascia at the 12 mm trocar site was closed using 0 PDS with the aid of the fascial closure device. The remaining trocars were opened up and insufflation was allowed to escape. Local anesthetic was injected into each of the incisions. Incisions were closed with 4-0 Vicryl. Dermabond was applied as dressing. He was awakened from anesthesia and taken recovery in good condition. Surgical Findings: mild appendicitis Complications Complications: No Admit VTE Documentation VTE Present on Admission: No VTE Mechan Device Prophylaxis: SCD's VTE Pharm Prophylaxis ordered?: No Reason prophylaxis not ordered: Treatment Not Indicated
--- NOTE | 2024-10-23 17:05 | PCM.POST.ANE ---
Anesthesia: Postop Eval I Current Vital Signs Temperature: 97.7 F Pulse Rate: 85 Blood Pressure: 144/78 Respiratory Rate: 16 Pulse Ox: 94 Oxygen Delivery Method: Room Air Assessment Airway patent: Yes Spontaneous unlabored respirations: Yes Mental status: Awake and Calm nausea: No Vomiting: No Anesthesia Complication: No Fluid Hydration Crystalloid volume administer (ml): 100 Total IV fluid infused: 100 Progress Note Anesthesia document: Postop Eval 1 completed: Yes
--- NOTE | 2024-10-23 17:06 | PCM.POSTANE2 ---
Anesthesia Postop Eval I Sum Postop Eval Completion status Anesthesia document: Postop Eval 1 completed: Yes Anesthesia Postop Eval I Summary Anesthesia Postop Eval I Summary: Anesthesia Postop Eval I: Assessment Summary Airway patent Yes 10/23/24 17:05 Spontaneous unlabored Yes 10/23/24 17:05 respirations Mental status Awake,Calm 10/23/24 17:05 nausea No 10/23/24 17:05 Vomiting No 10/23/24 17:05 Anesthesia Postop Eval I: Fluid Summary Crystalloid volume administer 100 10/23/24 17:05 (ml) Colloids volume administered ( ml) Blood Product volume administered (ml) Total IV fluid infused 100 10/23/24 17:05 Anesthesia Postop Eval I: Summary Notes Anesthesia Complication No 10/23/24 17:05 Anesthesia Complication Comment: Post-operative progress note Anesthesia: Postop Eval II Evaluation Mental status: Awake Pain Level: 1 nausea: No Vomiting: No
--- NOTE | 2024-10-23 17:15 | DCINST_ITS ---
Discharge Instructions Diet Discharge Diet: Light diet - advance as tolerated Activity Discharge Activity: Return to Normal Activity and May Shower May shower in (days): 1 Ice area for (Minutes): 30 Lifting Restrictions: No lifting pushing or pulling more than 20 pounds for about 4 weeks Dressing / Incision Call your doctor if your incision/area has: Continuous Slow Oozing, Sudden Increased Bleeding, Increased Pain/ Swelling, Increased Redness, Foul Smelling Discharge and Swelling at the incision site Call your doctor if you observe: Fever of 101 or Higher Remove Dressing in: leave until fall off Cleanse incision/area with: Soap & Water Follow Up Care Please Follow Up With: Mikey Harris MD When: 2 weeks. Please call office to schedule appointment Test Results: Test results from this visit will be discussed in further detail at your follow- up appointment, if applicable. Discharge Plan Admission Primary Reason for Your Visit: Acute appendicitis Attending Provider: Mikey Harris Primary Care Provider: Chema Shelley Instructions Print Language: Algerian Discharge Orders/Prescriptions Prescriptions: New oxycodone 5 mg capsule 5 mg PO Q8H PRN (Reason: pain) 4 Days Qty: 12 0RF Continued diltiazem HCl [Cartia XT] 240 mg capsule,extended release 24hr 240 mg PO DAILY lisinopril 40 mg tablet 40 mg PO DAILY rosuvastatin 10 mg tablet 10 mg PO QHS insulin glargine [Lantus Solostar U-100 Insulin] 100 unit/mL (3 mL) insulin pen 26 unit subcut QHS glipizide 10 mg tablet extended release 24hr 10 mg PO DAILY sertraline 50 mg tablet 50 mg PO DAILY Referrals / Follow Up: Chema Shelley MD [Primary Care Provider] - Disposition Disposition (needs filled in before D/C Order can be placed): Home, Self Care
== END 2024-10-23 18:46 | disposition home or self-care (01) ==
LOC: ED 15:14 → SDC 15:38
PROVIDERS: Physician Assistant; Emergency Provider Emergency Medicine; PCP Internal Medicine; Referring Provider Surgery; Visit Provider Surgery
PROC: 0DTJ4ZZ Resection of Appendix, Percutaneous Endoscopic Approach (ICD-10-PCS; CPT 44970; principal; 2024-10-23 16:00)
DX: K35.80 Unspecified acute appendicitis (principal); E11.9 Type 2 diabetes mellitus without complications; Z79.4 Long term (current) use of insulin; E87.5 Hyperkalemia; R79.89 Other specified abnormal findings of blood chemistry; I10 Essential (primary) hypertension; E78.5 Hyperlipidemia, unspecified; Z87.19 Personal history of other diseases of the digestive system; Z79.84 Long term (current) use of oral hypoglycemic drugs; Z79.899 Other long term (current) drug therapy; Z87.891 Personal history of nicotine dependence
CPT/HCPCS: 44970; 00840; 74177; 80053; 81001; 82962; 85025; 88304; 93005; 99285; Q9967; A4216; J2405